=== PATIENT | female | born 1935 | race Caucasian/White ===

== ENCOUNTER → 2016-11-10 | Outpatient (CLI) | payer OTHER ==
[~2016-11-10] MED LIST: AMLO-110 PO; ASPI81TA82 PO; ATEN25TA PO; CALC-5 PO; FLAX1CAP11 PO; METF-382 PO; PANT40TA PO
[2016-11-10 17:31] LABS: ALT/SGPT 56 U/L (12-78); AST/SGOT 43 U/L (15-37); BLOOD UREA NITROGEN 17 mg/dl (7-18); BUN/CREATININE RATIO 18.1 (10-20); CALCIUM 9.4 mg/dl (8.5-10.1); CARBON DIOXIDE 29 mmol/L (21-32); CHLORIDE 103 mmol/L (98-107); CREATININE 0.96 mg/dl (0.60-1.20); GLUCOSE 82 mg/dl (70-99); POTASSIUM 3.9 mmol/L (3.5-5.1); SODIUM 141 mmol/L (136-145)
[2016-11-10 17:33] LABS: ALB/GLOB RATIO 0.9 (0.9-2); ALKALINE PHOSPHATASE 91 U/L (45-117)
[2016-11-11 05:58] LABS: ESTIMATED AVERAGE GLUCOSE 134 mg/dl; HA1C FLAG Normal (Normal)
== END | disposition home or self-care (01) ==
LOC: C.LABPVFM 13:13
PROVIDERS: ATTEND Nurse Practitioner
DX: I10 Essential (primary) hypertension (principal); E11.9 Type 2 diabetes mellitus without complications

== ENCOUNTER → 2016-11-18 | Outpatient (CLI) | payer OTHER ==
--- NOTE | 2016-11-18 14:20 | MAMMOGRAPHY REPORT ---
UNILATERAL RIGHT DIGITAL DIAGNOSTIC MAMMOGRAM TOMOSYNTHESIS WITH CAD AND TARGETED RIGHT ULTRASOUND: 11/18/2016 CLINICAL HISTORY: 81-year-old woman presents for follow-up of a right breast asymmetry. No family h istory of breast cancer. TECHNIQUE: Right breast tomosynthesis in addition to standard 2D mammography was performed. Current study was also evaluated with a Computer Aided Detection (CAD) system. COMPARISON: Comparison is made to exams dated: 04/16/2016 mammogram, 04/16/2016 ultrasound, 04/08/2016 mammogram, and 04/06/2013 mammogram - [facility]. BREAST COMPOSITION: The tissue of the right breast is heterogeneously dense, which may obscure smal l masses. FINDINGS: There are diffuse rodlike secretory calcifications and a few benign rim calcifications wit hin the right breast. There is persistence of a 10 x 11 x 9 mm focal asymmetry in the 6:00 anterior versus retroareolar right breast. Although the appearance is similar to the 04/08/2016 screening m ammogram and the 04/16/2016 diagnostic mammograms, further evaluation with ultrasound was again perf ormed. No new suspicious mass, architectural distortion or cluster of new suspicious microcalcifica tions is identified. Real-time high-resolution sonographic evaluation was performed in the periareolar and retroareolar r ight breast. There is focal duct ectasia in the 9:00 periareolar right breast. There are a few sha dowing areas, likely secondary to the diffuse secretory calcifications of the breast. There is also hypoechoic shadowing in the retroareolar breast. A prominent hypoechoic fat lobule versus question able solid mass in the 6:00 periareolar right breast measures 13.4 x 7.4 x 8.1 mm. Although this mo st likely represents a fat lobule, given the discrete hypoechoic nature while scanning in multiple p lanes, this is indeterminate. Therefore, further evaluation with a breast MRI is recommended to ass ess for any suspicious enhancing masses or simply normal breast tissue and duct ectasia in the subar eolar right breast. IMPRESSION: ACR BI-RADS CATEGORY 0: INCOMPLETE EVALUATION: NEED ADDITIONAL IMAGING EVALUATION, TAR GETED ULTRASOUND ACR BI-RADS CATEGORY 0: INCOMPLETE EVALUATION: NEED ADDITIONAL IMAGING EVALUATION There is persistent 10 mm focal asymmetry in the 6:00 anterior/retroareolar right breast, with out d efinitive sonographic correlate, although this area is difficult to assess on ultrasound given shado wing from the nipple and diffuse secretory calcification. Further evaluation with a contrast-enhanc ed breast MRI is recommended to exclude the possibility of a suspicious enhancing mass or non-mass e nhancement in this location. These results and recommendations were discussed with the patient at the time of the exam. Approximately 10% of breast cancers are not detected with mammography. A negative mammographic repor t should not delay biopsy if a clinically suggestive mass is present. Nika Mcleod M.D. ay/:11/18/2016 12:42:36 Barrel Polisher: Leeanne ESTEBAN(Jenn)(Smith), [facility] letter sent: Addl Imaging 0 BI-RADS Code: ACR BI-RADS Category 0: Incomplete Evaluation: Need Additional Imaging Evaluation Ul trasound BI-RADS: ACR BI-RADS Category 0: Incomplete Evaluation: Need Additional Imaging Evaluation
== END | disposition home or self-care (01) ==
LOC: C.MAMM 08:03
PROVIDERS: ATTEND Nurse Practitioner
DX: R92.8 Other abnormal and inconclusive findings on diagnostic imaging of breast (principal)

== ENCOUNTER → 2016-12-01 | Outpatient (CLI) | payer OTHER ==
[~2016-12-01] MED LIST changes: +GADAVIST IV PRN
--- NOTE | 2016-12-02 13:30 | MAMMOGRAPHY REPORT ---
BREAST MRI OF BOTH BREASTS : 12/01/2016 CLINICAL HISTORY: 81-year-old woman with a 12 mm right breast asymmetry and no definite sonographic correlate. She presents for additional evaluation to exclude a suspicious enhancing mass. COMPARISON: Comparison is made to exams dated: 11/18/2016 mammogram, 04/16/2016 mammogram, 04/16/2016 ultrasound, 11/18/2016 ultrasound, 04/08/2016 mammogram, and 04/06/2013 mammogram - [facility]. TECHNIQUE: Using a 1.5 Hilda magnet and dedicated breast coil, multisequence axial images were obtai jasmin through the breasts. After uneventful IV administration of 8 mL of Gadavist, dynamic multiphase contrast-enhanced axial images, and sagittal postcontrast were obtained. Temporal subtraction axia l images and 3-D MIP images are provided. Everything was then reviewed on a 3-D workstation, [employer]. FINDINGS: Right breast: There is no significant background parenchymal enhancement. In the anterior, subareol ar versus 6:00 periareolar right breast there is a lobulated, heterogeneously enhancing mass. It de monstrates areas of brain enhancement, has associated persistent kinetics, is hypointense on the T1 nonfat saturated images and T2 hyperintense with thin T2 hypointense linear septae within. It measu res 12.6 x 13.8 x 9.1 mm. This is thought to correlate with the mammographic asymmetry and also may correlate with the questionable fat lobule versus mass in the 6:00 periareolar right breast seen on recent ultrasound. Although this could represent a fibroadenoma it is indeterminate given the hete rogeneous and peripheral rim enhancement and definitive characterization with second look ultrasound and possible ultrasound-guided core biopsy is recommended. No other suspicious enhancing mass, non -mass enhancement or suspicious kinetics are seen within the right breast. There is no focal skin t hickening or nipple retraction. No right axillary lymphadenopathy. Left breast: There is mild background parenchymal enhancement. No suspicious enhancing mass, non-ma ss enhancement or suspicious kinetics are seen within the left breast. There is no focal skin thick ening or nipple retraction. No left axillary lymphadenopathy. Incidental note is made of degenerative changes in the visualized cervicothoracic spine, seen on the blast furnace blower sequence. There is a 5 mm anterior pericardiac lymph node. IMPRESSION: ACR BI-RADS CATEGORY 4B: INTERMEDIATE SUSPICION FOR MALIGNANCY 1. Second look ultrasound and possible ultrasound-guided core needle biopsy is recommended for an i ndeterminate lobulated, heterogeneously enhancing 13 mm mass in the anterior subareolar/6:00 periare olar right breast. This correlates with the mammographic asymmetry and also likely the questionable mass versus fat lobule seen on recent ultrasound. 2. No MRI evidence of malignancy within left breast The patient will be called to schedule an appointment. Nika Mcleod M.D. 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
== END | disposition home or self-care (01) ==
LOC: C.MRI 09:21
PROVIDERS: ATTEND Nurse Practitioner
DX: R92.8 Other abnormal and inconclusive findings on diagnostic imaging of breast (principal); N63 Unspecified lump in breast

== ENCOUNTER → 2016-12-17 | Outpatient (CLI) | payer OTHER ==
[~2016-12-17] MED LIST changes: -GADAVIST IV PRN
--- NOTE | 2016-12-17 11:17 | Discharge Instructions ---
Discharge Instructions Procedure Procedure Date: Dec 17, 2016. Reason for visit: Right Mass/2ND Look Us Poss Bx. Discharge Discharge Date: Dec 17, 2016. Discharge Diagnosis: status post breast biopsy Instructions Activity Recommendations: Additional Limitations (see below) Return to School/Work: no limitations Recommended Home Diet: No Limitations Provider Instructions: ACTIVITY RECOMMENDATIONS: * No lifting, pushing, pulling or exercising the affected side for three days. RETURN TO SCHOOL/WORK: * You may return to work/school after the procedure, but do not perform any strenuous activities for 24 to 48 hours. MEDICATIONS: * Tylenol (two 325 mg) every four to six hours if needed for mild pain (if not allergic to Tylenol). DIET: * Resume previous diet. SPECIAL CARE INSTRUCTIONS: * Keep biopsy site dry for 24 hours. May shower after 24 hours, but do not soak (bathe) incision. * May remove Tegaderm (plastic patch) tomorrow AFTER showering. * Leave the steri-strips on for one week. Allow the steri-strips to fall off by themselves. If not off after one week, you may remove them. You may place a Bandaid crosswise over the strips, if desired. * Apply ice 10 minutes on and 10 minutes off as needed. * Wear a bra at bedtime to sleep more comfortably for 2-3 days. * Your referring physician should have the results after approximately 5 to 7 business days. * Call for unusual bleeding, fever, drainage, etc or if you have any questions call during normal business hours or after hours call Dr Benavidez, . FOLLOW UP VISIT: Follow-up with Referring Physician as scheduled. Allergies Coded Allergies: BEE STING (Unverified Allergy, Intermediate, HIVES, 05/07/16) Sulfa Drugs (Verified Allergy, Unknown, ., 05/07/16) Rocky Medeiros Recommendations: Call your doctor if: * Temperature above 101 degrees * Pain not relieved by pain medicine ordered * There is increased drainage or redness from any incision * You have any unanswered questions or concerns. Your Doctors Instructions noted above were prepared by provider Shira Benavidez. Patient Signature Section: Patient Instructions Signature Page Amparo Nguyen Patient (or Guardian) Signature/Date: I have read and understand the instructions given to me by my caregivers. Caregiver/RN/Doctor Signature/Date: The above-named patient and/or guardian has received patient instructions on this date. + Original Patient Signature Page (only) stays with chart. Please make copy for patient.
--- NOTE | 2016-12-17 12:26 | MAMMOGRAPHY REPORT ---
UNILATERAL RIGHT DIGITAL DIAGNOSTIC MAMMOGRAM: 12/17/2016 CLINICAL HISTORY: Status post ultrasound guided biopsy of the right 6:00 breast mass. TECHNIQUE: Postprocedural right CC and ML views were obtained. COMPARISON: Comparison is made to exams dated: 11/18/2016 mammogram, 04/16/2016 mammogram, 04/08/2016 m ammogram, 04/06/2013 mammogram, 04/05/2012 mammogram, and 02/25/2011 mammogram - [facility]. BREAST COMPOSITION: The tissue of the right breast is heterogeneously dense, which may obscure smal l masses. FINDINGS: A new biopsy marker clip is seen at the site of the biopsied right 6:00 breast mass. No significant postbiopsy hematoma is seen. IMPRESSION: POST PROCEDURE IMAGING FOR MARKER PLACEMENT New biopsy marker clip status post ultrasound guided biopsy of the right 6:00 breast mass. Patholog y results are pending. Approximately 10% of breast cancers are not detected with mammography. A negative mammographic repor t should not delay biopsy if a clinically suggestive mass is present. Shira Benavidez M.D. ah/:12/17/2016 11:25:37 Pharmaceutical Plant Operator: Nery Beach RT(R)(M), [facility] BI-RADS Code: Post Procedure Imaging For Marker Placement
--- NOTE | 2016-12-17 12:26 | MAMMOGRAPHY REPORT ---
ULTRASOUND OF RIGHT BREAST: 12/17/2016 CLINICAL HISTORY: Second look ultrasound for enhancing mass seen on breast MRI. COMPARISON: Comparison is made to exams dated: 12/01/2016 breast MRI, 11/18/2016 ultrasound, 7 mammogram, 04/16/2016 mammogram, 04/08/2016 mammogram, and 04/06/2013 mammogram - [facility]. TECHNIQUE: Real-time targeted ultrasound of the right breast was performed. FINDINGS: Real-time, high resolution targeted ultrasound was performed of the right 6:00 breast in the region of the enhancing mass seen on breast MRI. In the right 6:00 periareolar breast, there is a slightly hypoechoic lobulated 10 x 7 x 12 mm mass. This is felt to correspond with the enhancing mass seen on breast MRI and also corresponds with the mass seen on the higher breast ultrasound dated . The mass is indeterminate and ultrasound-guided core needle biopsy is recommended for further ev aluation. IMPRESSION: ACR BI-RADS CATEGORY 4A: LOW SUSPICION FOR MALIGNANCY - FOLLOW-UP RECOMMENDED Slightly hypoechoic 12 mm mass in the right 6:00 breast, which is felt to correspond with the MRI fi nding. Recommend ultrasound-guided core needle biopsy for further evaluation. A phone call was made to the physician's office to confirm faxed results were received. The patient was verbally notified of the results. Biopsy was performed immediately after the ultrasound exam. Shira Benavidez M.D. ah/:12/17/2016 11:17:09 Quality Eng: Shira Benavidez MD, [facility] BI-RADS Code: ACR BI-RADS Category 4A: Low Suspicion For Malignancy
--- NOTE | 2016-12-17 12:26 | MAMMOGRAPHY REPORT ---
ULTRASOUND GUIDED BIOPSY RIGHT BREAST: 12/17/2016 CLINICAL HISTORY: Right 6:00 breast mass. PATIENT CONSENT: The procedure, risks and benefits were discussed with the patient and informed writ ten consent was obtained. A timeout was performed immediately prior to the procedure. PROCEDURE DESCRIPTION: With ultrasound guidance, aseptic technique, and lidocaine as the local anest hetic (1% lidocaine to anesthetize the skin and 1% lidocaine with epinephrine to anesthetize the jamal per tissues), the mass of concern in the right 6:00 breast was sampled 3 times with a 14-gauge Achie ve biopsy needle. Direct pressure was applied to the site immediately post procedure and hemostasis was achieved. Immediately thereafter, with ultrasound guidance, aseptic technique, and lidocaine a s the local anesthetic, a metallic localizer clip was placed centrally in the mass. Direct pressure was applied to the site immediately post procedure and hemostasis was achieved. Postprocedure unil ateral mammograms were performed to confirm placement of the clip in the expected location of the br east mass. The patient tolerated the procedure without complication. She was given wound care inst ructions. The specimens were sent to pathology for analysis. COMPARISON: Comparison is made to exams dated: 12/01/2016 breast MRI, 11/18/2016 mammogram, 12/17/2016 ultrasound, 04/16/2016 mammogram, 04/05/2012 mammogram, and 04/06/2013 mammogram - [facility] [address]. IMPRESSION: ULTRASOUND GUIDED BIOPSY Ultrasound guided core needle biopsy of the right 6:00 breast mass, with clip placement. The patien t will receive pathology results from her referring provider. Shira Benavidez M.D. ah/:12/17/2016 11:19:19 Tire Mold Engraver: Nery Beach RT(R)(M), [facility] [address]
== END | disposition home or self-care (01) ==
LOC: C.MAMM 10:03
PROVIDERS: ATTEND Nurse Practitioner
DX: N63 Unspecified lump in breast (principal); C50.911 Malignant neoplasm of unspecified site of right female breast

== ENCOUNTER → 2017-04-16 | Outpatient (CLI) | payer OTHER ==
--- NOTE | 2017-04-16 16:13 | MAMMOGRAPHY REPORT ---
BILATERAL DIGITAL DIAGNOSTIC MAMMOGRAM TOMOSYNTHESIS WITH CAD: 04/16/2017 CLINICAL HISTORY: History of right breast cancer status post lumpectomy December 2016. The patient did not have radiation therapy. The patient denies any current complaints. TECHNIQUE: Breast tomosynthesis in addition to standard 2D mammography was performed. Current study was also evaluated with a Computer Aided Detection (CAD) system. Bilateral CC and MLO 2-D and tomosy nthesis images and spot magnification right cc and ML views of the lumpectomy bed were obtained. COMPARISON: Comparison is made to exams dated: 12/17/2016 ultrasound biopsy, 12/17/2016 mammogram, 11/04 breast MRI, 12/17/2016 ultrasound, 11/18/2016 ultrasound, and 11/18/2016 mammogram - [facility]. BREAST COMPOSITION: The tissue of both breasts is heterogeneously dense, which may obscure small mas ses. FINDINGS: There are new post surgical changes in the right breast from prior lumpectomy, including n ew density and architectural distortion at the lumpectomy bed. Linear scar markers denote scars on t he right anterior and left lateral breast. There is minimal diffuse right breast skin thickening. T he remainder of both breasts are stable compared to prior exams, without suspicious masses, calcifica tions, or areas of architectural distortion noted. Scattered bilateral benign-appearing calcificatio ns, predominantly rodlike secretory calcifications, are again noted. IMPRESSION: ACR-BI-RADS CATEGORY 3: PROBABLY BENIGN Expected postsurgical changes in the right breast status post lumpectomy, without mammographic eviden ce of malignancy in either breast. Recommend follow-up diagnostic tomosynthesis mammograms of the ri ght breast in 6 months to reevaluate right breast postsurgical changes. The patient has been verbally notified of the results. Approximately 10% of breast cancers are not detected with mammography. A negative mammographic report should not delay biopsy if a clinically suggestive mass is present. Shira Benavidez M.D. /:04/16/2017 11:52:58 [employer] Miss[employer] Spacelift: Arianna Veliz, [facility] letter sent: Personal History 3 BI-RADS Code: ACR-BI-RADS Category 3: Probably Benign
== END | disposition home or self-care (01) ==
LOC: C.MAMM 10:39
PROVIDERS: ATTEND Surgery
DX: C50.111 Malignant neoplasm of central portion of right female breast (principal)

== ENCOUNTER → 2017-05-14 | Outpatient (CLI) | payer OTHER ==
[2017-05-14 13:11] LABS: BLOOD UREA NITROGEN 19 mg/dl (7-18); BUN/CREATININE RATIO 16.8 (10-20); CALCIUM 9.8 mg/dl (8.5-10.1); CARBON DIOXIDE 28 mmol/L (21-32); CHLORIDE 104 mmol/L (98-107); GLUCOSE 103 mg/dl (70-99); POTASSIUM 4.4 mmol/L (3.5-5.1); SODIUM 138 mmol/L (136-145)
[2017-05-14 13:27] LABS: ESTIMATED AVERAGE GLUCOSE 131 mg/dl; HA1C FLAG Normal (Normal)
== END | disposition home or self-care (01) ==
LOC: C.LABPVFM 09:12
PROVIDERS: ATTEND Nurse Practitioner
DX: I10 Essential (primary) hypertension (principal); E11.9 Type 2 diabetes mellitus without complications

== ENCOUNTER → 2017-10-16 | Outpatient (CLI) | payer OTHER ==
--- NOTE | 2017-10-16 12:57 | MAMMOGRAPHY REPORT ---
UNILATERAL RIGHT DIGITAL DIAGNOSTIC MAMMOGRAM TOMOSYNTHESIS WITH CAD: 10/16/2017 CLINICAL HISTORY: History of right breast cancer status post lumpectomy December 2016. The patient did not have radiation therapy. She denies any current complaints. TECHNIQUE: Breast tomosynthesis in addition to standard 2D mammography was performed. Current study was also evaluated with a Computer Aided Detection (CAD) system. Right CC and MLO 2-D and tomosynthe sis images and spot magnification right cc and ML views were obtained. COMPARISON: Comparison is made to exams dated: 04/16/2017 mammogram, 11/18/2016 ultrasound, 11/18/2016 mammogram, 04/16/2016 mammogram, 04/16/2016 ultrasound, and 04/08/2016 mammogram - [facility]. BREAST COMPOSITION: There are scattered areas of fibroglandular density in the right breast. FINDINGS: There are stable post surgical changes in the right lateral breast from prior lumpectomy, i ncluding stable density and architectural distortion at the lumpectomy bed. Minimal diffuse right br east skin thickening is stable to decreased. Scattered benign-appearing right breast calcifications are not significantly changed. There are no suspicious masses, calcifications, or areas of software database architect ural distortion noted in the right breast. IMPRESSION: ACR-BI-RADS CATEGORY 3: PROBABLY BENIGN Stable post surgical changes in the right breast from prior lumpectomy, without mammographic evidence of malignancy in the right breast. Recommend bilateral diagnostic tomosynthesis mammograms in 6 mon ths, to reevaluate the right breast postsurgical changes and for routine mammography of the left sarai st. The patient has been verbally notified of the results. Approximately 10% of breast cancers are not detected with mammography. A negative mammographic report should not delay biopsy if a clinically suggestive mass is present. Shira Benavidez M.D. /:10/16/2017 11:11:58 Earth Science Faculty Member: Shilpa ESTEBAN(Jenn)(M), [facility] letter sent: Personal History 3 BI-RADS Code: ACR-BI-RADS Category 3: Probably Benign
== END | disposition home or self-care (01) ==
LOC: C.MAMM 10:38
PROVIDERS: ATTEND Surgery
DX: Z85.3 Personal history of malignant neoplasm of breast (principal)

== ENCOUNTER → 2017-11-09 | Outpatient (CLI) | payer OTHER ==
[2017-11-09 13:02] LABS: HEMOGLOBIN A1C 6.1 % (4.5-5.6)
[2017-11-09 13:08] LABS: BLOOD UREA NITROGEN 19 mg/dl (7-18); CALCIUM 9.4 mg/dl (8.5-10.1); CARBON DIOXIDE 28 mmol/L (21-32); GLUCOSE 113 mg/dl (70-99); POTASSIUM 3.8 mmol/L (3.5-5.1); SODIUM 138 mmol/L (136-145)
== END | disposition home or self-care (01) ==
LOC: C.LABPVFM 09:11
PROVIDERS: ATTEND Nurse Practitioner
DX: I10 Essential (primary) hypertension (principal); E11.9 Type 2 diabetes mellitus without complications

== ENCOUNTER 2020-07-08 11:53 | Inpatient (IN) ==
[~2020-07-08 11:53] MED LIST changes: -AMLO-110 PO; -ASPI81TA82 PO; -ATEN25TA PO; -CALC-5 PO; +FAMOTIDINE 20 MG in SYRINGE 3 ML IV ONE; -FLAX1CAP11 PO; -METF-382 PO; -PANT40TA PO
[2020-07-08] MEDS ORDERED: ONDANSETRON INJ 2 MG/ML 2 ML VIAL IV STA (12:50)
[2020-07-08] MEDS ORDERED: KETOROLAC TROMETHAMINE 15 MG/ML VIAL IV STA (12:50)
[2020-07-08] MEDS ORDERED: MoRPHine SULFATE 4 MG/ML 1 ML CARP\\VIAL IV PRN (12:50)
[2020-07-08] MEDS ORDERED: SODIUM CHLORIDE 0.9% 500 ML IV SCH (13:00)
[2020-07-08 13:04] LABS: Basophils # (auto) 0.02 K/uL (0-0.2); Basophils % (auto) 0.1 %; Eosinophils # (auto) 0.03 K/uL (0-0.5); Eosinophils % (auto) 0.2 %; Hematocrit (blood only) 42.1 % (37-47); Hemoglobin 14.4 g/dL (12.0-16.0); Immature Granulocytes # (auto) 0.02 K/uL (0.00-0.02); Immature Granulocytes % (auto) 0.1 %; Lymphocytes % (auto) 3.7 %; Mean Corpuscular Hemoglobin 31.1 pg (25-34); Mean Corpuscular Hgb Conc 34.2 g/dL (32-36); Mean Corpuscular Volume 90.9 fL (80-100); Mean Platelet Volume 10.9 fL (7.4-10.4); Monocytes # (auto) 0.47 K/uL (0.11-0.59); Monocytes % (auto) 2.9 %; Platelet Count 307 K/uL (130-400); RDW Coefficient of Variation 13.3 % (11.5-14.5); RDW Standard Deviation 43.9 fL (36.4-46.3); Red Blood Count 4.63 M/uL (4.2-5.4); White Blood Count 16.04 K/uL (4.8-10.8)
[2020-07-08 13:11] LABS: Alanine Aminotransferase 106 U/L (12-78); Albumin Level 3.9 gm/dl (3.4-5.0); Aspartate Aminotransferase 184 U/L (15-37); BUN Creatinine Ratio 15.8 (10-20); Blood Urea Nitrogen 20 mg/dl (7-18); Calcium 9.8 mg/dl (8.5-10.1); Carbon Dioxide 26 mmol/L (21-32); Chloride 102 mmol/L (98-107); Creatinine Clr Calc Pharmacy 34.6 ml/min; Est GFR (African American) 46.1; Est GFR (Non-African American) 39.7; Glucose 226 mg/dl (70-99); Potassium 3.6 mmol/L (3.5-5.1); Sodium 138 mmol/L (136-145)
[2020-07-08] MEDS ORDERED: IOVERSOL 100ml IV ONE (13:14)
[2020-07-08 13:15] LABS: Albumin Globulin Ratio 0.9 (0.9-2); Alkaline Phosphatase 134 U/L (45-117); Bilirubin,Total 1.5 mg/dl (0.2-1); Globulin 4.5 gm/dl (2.5-4.0); Lipase 11245 U/L (73-393); Total Protein 8.4 gm/dl (6.4-8.2); Troponin I < 0.015 ng/ml (0-0.045)
--- NOTE | 2020-07-08 13:17 | Emergency Department Note ---
Impression & Plan Epigastric abdominal pain, Acute pancreatitis ED Provider Note NAME: NATALIA Mtz WINTER AGE: 85 SEX: F : 1935 ARRIVES VIA: Walk-In INFORMANT: [Patient] ED PROVIDER(S): [Sonido Almodovar MD] CHIEF COMPLAINT: Abdominal pain HISTORY OF PRESENT ILLNESS: The patient is an 85-year-old female presents the ED with about 7 hours of severe 10/10 epigastric pain radiating to the back. She has tried Maalox without relief. No diarrhea, no nausea or vomiting. No fever, chills, cough, chest pain or shortness of breath. The patient states that nothing she does makes her symptoms better or worse. She states she has had her gallbladder removed. REVIEW OF SYSTEMS: See HPI for pertinent positives and negatives. A total of ten systems were revie wed and were otherwise negative. PMHx/PSHx: See Below SOCIAL HISTORY: See Below. PHYSICAL EXAM: GENERAL: Patient is in moderate distress from pain. HEENT: No acute trauma, normocephalic atraumatic, mucous membranes moist, no nasal congestion, no scleral icterus. NECK: No stridor, no adenopathy, no meningismus, trachea is midline. LUNGS: Clear to auscultation bilaterally, no wheeze, no rhonchi, breath sounds e qual. HEART: Without murmurs gallops or rubs, regular rate and rhythm. ABDOMEN: Soft, significant tender in the epigastrium, bowel sounds positive, no hernias, no peritonitis. EXTREMITIES: No cyanosis or edema, full range of motion of all the joints without pain or difficulty, no signs for acute trauma. NEUROLOGIC: Oriented x 3, no acute motor or sensory deficits, no focal weakness. SKIN: No rash, no jaundice, no diaphoresis. DIFFERENTIAL DIAGNOSIS: Appendicitis, ovarian cyst, ovarian torsion,infections, diverticulitis, UTI, obstruction, mesenteric ischemia, aortic pathology, inflammatory bowel disease, renal colic, PUD, pancreatitis, biliary pathology, hernia, volvulus, constipation, as well as other pathologies. EMERGENCY DEPARTMENT COURSE/PROCEDURES: ECG: Indication was epigastric pain. The ECG shows a normal sinus rhythm with a rate of 89. There is some diffuse nonspecific ST change. There are no PVCs or ST elevation. The QTc is 462. Continuous Cardiac Monitoring: An order was placed for continuous cardiac monitoring. The monitor shows a rate of 88 with normal sinus rhythm. MEDICAL DECISION MAKING: There is a moderate leukocytosis at 16,000, this is consistent with infection or may be just her pain. There is a normal hemoglobin and platelet count. No significant electrolyte abnormality or kidney failure. There were some elevated liver enzymes. The patient did have evidence for pancreatitis by our testing with a lipase value over 11,000. ECG showed a sinus rhythm, no acute ischemia. Cardiac enzyme testing x1 was not consistent with acute cardiac injury. Chest from did not show free air, pneumonia or mediastinal widening. Abdominal and pelvis CT did not show any bowel obstruction or free air, no acute surgical process by CT scan. Some dilated biliary ducts were seen. On exam, the patient did seem uncomfortable in the epigastric area. She was not febrile or toxic. The patient received IV saline for hydration. She received IV Zofran and IV mo rphine. She was given IV Toradol. She is feeling improved. She seems now to be resting. The patient is in need of a hospital stay. She has pancreatitis. This diagnosis has of course caused her pain. She has had this diagnosis once before. I did speak to the patient at length, I spoke with case management. The on-call hospitalist was consulted. Past Med/Surg History Medical History Acid reflux Acid reflux disease Breast cancer, right breast Chronic reflux esophagitis Diabetes Hyperlipidemia Hypertension Sensorineural hearing loss (SNHL) Surgical History H/O right breast biopsy 20 years ago - benign H/O total hysterectomy with bilateral salpingo-oophorectomy (BSO) History of appendectomy History of cholecystectomy Hx of cataract surgery Only right eye Status post excisional biopsy Bilateral excisional biopsies - benign Status post right breast lumpectomy 2017 and then 2019 for a recurrence SLN biopsy as well Family History Mother , 68yo; Stroke Hypertension Father , at 52yo; Heart disease Smoker Sister Hypertension COPD (chronic obstructive pulmonary disease) CHF (congestive heart failure) Obesity Sister Diabetes 1.5, managed as type 1 Hypertension Paget's disease Son Myocardial infarction History of heart artery stent Tongue cancer Lyme disease Bipolar affect, depressed Son Brain cancer Daughter Leukemia Cervical cancer Denies family history of Ovarian cancer Prostate cancer Breast cancer Colorectal cancer Social History Smoking Status: Never smoker Second Hand Exposure: No; Do You Dip or Chew Tobacco: No; Tobacco Cessation Education Requested by Patient: No Hx Alcohol Use: No Hx Substance Use: No Preferred Language: Romansh Communication Ability: Effective Visual Impairment: No Limitations Hearing Ability: Normal Aircraft Engineer Required: No Beliefs That Will Affect Care: None marital status: Current Living Situation: Spouse current occupational status: 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 Verified 07/08/20 13:02 Antibiotics) lisinopril Allergy COUGH Verified 07/08/20 13:02 Home Meds Home Medications Medication Instructions Recorded Confirmed ergocalciferol (vitamin D2) 10 mcg PO DAILY 07/08/20 07/08/20 [Vitamin D2] metformin 500 mg PO DAILY 07/08/20 07/08/20 Previous Rx's Medication Instructions Recorded blood sugar diagnostic See Rx Instructions .ROUTE 08/11/19 .COMPLEX #100 strip atenolol 25 mg tablet 25 mg PO DAILY #30 tab 05/08/20 triamcinolone acetonide 0.1 % 1 appln TOP BID PRN #15 gm 05/08/20 topical cream amlodipine 5 mg tablet 5 mg PO DAILY #90 tab 06/21/20 Results & Data (ED) Vital Signs Vital Signs - 24 hr 07/08/20 11:58 07/08/20 12:18 07/08/20 12:27 Temperature 36.4 C L Temperature Source Oral Pulse Rate 75 74 71 Respiratory Rate 19 27 H 26 H Blood Pressure 195/72 H 188/72 H Blood Pressure Mean 113 81 Pulse Oximetry 100 Oxygen Delivery Method Room Air Sepsis Recent Fever Within 48 Hours No Sepsis New/Unexplained Change in Mental Status No Sepsis Action Taken by Nursing No Action Required 07/08/20 12:30 07/08/20 12:31 07/08/20 12:37 Temperature Temperature Source Oral Pulse Rate 67 68 Respiratory Rate 22 18 Blood Pressure 175/73 H Blood Pressure Mean 109 Pulse Oximetry Oxygen Delivery Method Sepsis Recent Fever Within 48 Hours Sepsis New/Unexplained Change in Mental Status Sepsis Action Taken by Nursing 07/08/20 13:00 07/08/20 13:01 07/08/20 13:30 Temperature Temperature Source Pulse Rate 72 71 81 Respiratory Rate 13 19 Blood Pressure 153/72 H 173/70 H Blood Pressure Mean 103 104 Pulse Oximetry Oxygen Delivery Method Sepsis Recent Fever Within 48 Hours Sepsis New/Unexplained Change in Mental Status Sepsis Action Taken by Nursing 07/08/20 13:31 07/08/20 14:00 07/08/20 14:01 Temperature Temperature Source Pulse Rate 82 92 H 90 Respiratory Rate 24 26 H Blood Pressure 180/71 H Blood Pressure Mean 125 Pulse Oximetry Oxygen Delivery Method Sepsis Recent Fever Within 48 Hours Sepsis New/Unexplained Change in Mental Status Sepsis Action Taken by Nursing 07/08/20 14:30 07/08/20 14:31 07/08/20 15:00 Temperature Temperature Source Pulse Rate 94 H 94 H 90 Respiratory Rate 26 H 26 H 23 Blood Pressure 178/72 H 184/70 H Blood Pressure Mean 116 127 Pulse Oximetry Oxygen Delivery Method Sepsis Recent Fever Within 48 Hours Sepsis New/Unexplained Change in Mental Status Sepsis Action Taken by Nursing 07/08/20 15:01 Temperature Temperature Source Pulse Rate 88 Respiratory Rate 25 H Blood Pressure Blood Pressure Mean Pulse Oximetry Oxygen Delivery Method Sepsis Recent Fever Within 48 Hours Sepsis New/Unexplained Change in Mental Status Sepsis Action Taken by Long-Term Medications Current Medication List: was personally reviewed by me Laboratory Data Attestation: I reviewed the patient's lab results. Result diagrams: 07/08/20 12:25 07/08/20 12:25 Lab Results 07/08/20 07/08/20 07/08/20 Range/Units 12:15 12:25 12:25 WBC 16.04 H (4.8-10.8) K/uL RBC 4.63 (4.2-5.4) M/uL Hgb 14.4 (12.0-16.0) g/dL Hct 42.1 (37-47) % MCV 90.9 (80-100) fL MCH 31.1 (25-34) pg MCHC 34.2 (32-36) g/dL RDW Std Deviation 43.9 (36.4-46.3) fL RDW Coeff of [place] 13.3 (11.5-14.5) % Plt Count 307 (130-400) K/uL MPV 10.9 H (7.4-10.4) fL Immature Gran % (Auto) 0.1 % Neut % (Auto) 93.0 % Lymph % (Auto) 3.7 % [place] % (Auto) 2.9 % Eos % (Auto) 0.2 % Baso % (Auto) 0.1 % Neut # (Auto) 14.90 H (1.4-6.5) K/uL Lymph # (Auto) 0.60 L (1.2-3.4) K/uL [place] # (Auto) 0.47 (0.11-0.59) K/uL Eos # (Auto) 0.03 (0-0.5) K/uL Baso # (Auto) 0.02 (0-0.2) K/uL Immature Gran # (Auto) 0.02 (0.00-0.02) K/uL Sodium 138 (136-145) mmol/L Potassium 3.6 (3.5-5.1) mmol/L Chloride 102 (98-107) mmol/L Carbon Dioxide 26 (21-32) mmol/L Anion Gap 9.0 (3-11) BUN 20 H (7-18) mg/dl Creatinine 1.25 H (0.6-1.2) mg/dl Est Cr Clr Drug Dosing 34.6 ml/min Est GFR ( Amer) 46.1 Est GFR (Non-Af Amer) 39.7 BUN/Creatinine Ratio 15.8 (10-20) Glucose 226 H (70-99) mg/dl Calcium 9.8 (8.5-10.1) mg/dl Total Bilirubin 1.5 H (0.2-1) mg/dl AST 184 H (15-37) U/L ALT 106 H (12-78) U/L Alkaline Phosphatase 134 H (45-117) U/L Troponin I < 0.015 (0-0.045) ng/ml Total Protein 8.4 H (6.4-8.2) gm/dl Albumin 3.9 (3.4-5.0) gm/dl Globulin 4.5 H (2.5-4.0) gm/dl Albumin/Globulin Ratio 0.9 (0.9-2) Lipase 12171 H (73-393) U/L Urine Color Dark Yellow Urine Appearance Clear (Clear) Urine pH 8.0 H (4.5-7.5) Ur Specific [place] 1.020 (1.000-1.030) Urine Protein Negative (Negative) Urine Glucose (UA) Trace H (Negative) Urine Ketones Negative (Negative) Urine Blood Negative (Negative) Urine Nitrite Negative (Negative) Urine Bilirubin Negative (Negative) Urine Urobilinogen Positive H (Negative) Ur Leukocyte Esterase Negative (Negative) Urine WBC (Auto) 0 (0-5) /hpf Urine RBC (Auto) 0-4 (0-4) /hpf U Hyaline Cast (Auto) 0 (0-5) /lpf U Epithel Cells (Auto) 10-20 H (0-5) /lpf Urine Bacteria (Auto) Negative (Negative) Administered Medications Atenolol (Atenolol 25 Mg Tablet) 25 mg PO DAILY [facility] Stop: 08/07/20 17:39 Last Admin: 07/08/20 18:31 Dose: 25 mg Documented by: [id number] Lactated Ringer's (Lr) 1,000 mls @ 175 mls/hr IV .Q5H43M [facility] Stop: 08/07/20 17:59 Last Admin: 07/08/20 18:41 Dose: 175 mls/hr Documented by: [id number] Insulin Aspart (Insulin Aspart 100 Units/Ml 3 Ml Pen) 0 units SC ACHS [facility] Stop: 08/07/20 17:39 Last Admin: 07/08/20 20:24 Dose: 1 units Documented by: [id number] Cosigned by: [id number] Admin: 07/08/20 18:31 Dose: Not Given Documented by: [id number] Discontinued Medications Famotidine (Famotidine 20mg/5ml Iv Push) 20 mg IV ONE STA Stop: 07/08/20 15:53 Last Admin: 07/08/20 16:11 Dose: 20 mg Documented by: [id number] Sodium Chloride (Nss) 500 mls @ 999 mls/hr IV .Q31M [facility] Stop: 07/08/20 13:30 Last Infusion: 07/08/20 14:33 Dose: 0 mls/hr Documented by: [id number] Admin: 07/08/20 13:19 Dose: 999 mls/hr Documented by: [id number] Sodium Chloride (Nss 1000ml) 1,000 mls @ 999 mls/hr IV .Q1H1M ONE Stop: 07/08/20 16:28 Last Admin: 07/08/20 20:22 Dose: Not Given Documented by: [id number] Ioversol (Ioversol 100ml) 94 ml IV ONCE ONE Stop: 07/08/20 13:15 Last Admin: 07/08/20 13:15 Dose: 94 ml Documented by: [id number] Ketorolac Tromethamine (Ketorolac Tromethamine 15 Mg/Ml Vial) 15 mg IV NOW STA Stop: 07/08/20 12:51 Last Admin: 07/08/20 13:19 Dose: 15 mg Documented by: [id number] Morphine Sulfate (Morphine Sulfate 4 Mg/Ml 1 Ml Carp\Vial) 4 mg IV Q15M PRN PRN Reason: Pain Stop: 07/22/20 12:49 Last Admin: 07/08/20 13:19 Dose: 4 mg Documented by: [id number] Ondansetron HCl (Ondansetron Inj 2 Mg/Ml 2 Ml Vial) 4 mg IV NOW STA Stop: 07/08/20 12:51 Last Admin: 07/08/20 13:19 Dose: 4 mg Documented by: [id number] Imaging Data Radiologist's Impression: XR chest 1V portable HISTORY: 85 years-old Female epig pain acute epigastric abdominal pain with nausea and vomiting COMPARISON: Chest radiograph 05/07/2016 TECHNIQUE: Portable AP view of the chest FINDINGS: Cardiac silhouette is enlarged. Calcifications of the mitral annulus. No pneumothorax, pleural effusion or overt pulmonary edema. Mild linear subsegmental left basilar atelectasis. Degenerative changes of the shoulders and spine. IMPRESSION: No acute process. ABDOMEN AND PELVIS CT WITH IV CONTRAST CT DOSE: 516.89 mGy.cm HISTORY: Acute generalized abdominal pain poss obstruc or pancreatitis TECHNIQUE: Multiaxial CT images of the abdomen and pelvis were performed following the IV administration of 94 cc of Optiray 320, A dose lowering technique was utilized adhering to the principles of ALARA. COMPARISON STUDY: CT radiation therapy study 01/26/2019, right breast mammogram 11/10/2018. FINDINGS: Mild bibasilar atelectasis. No pneumatosis or pneumoperitoneum. Cardiomegaly. Extensive coronary artery calcifications. Spleen and right adrenal gland are unremarkable. Nodular thickening of the left adrenal gland. Moderate generalized pancreatic atrophy. No CT evidence of acute pancreatitis. No hepatic mass lesion. There is moderate intrahepatic and extrahepatic biliary ductal dilation without obstructing stone or lesion identified. The common bile duct measures up to 1.6 cm transversely. The gallbladder appears surgically absent. 3.1 cm duodenal diverticulum. Unremarkable appearance of the kidneys. Cyst of the superior pole right kidney, 1.8 cm. Pelvic floor relaxation with small cystocele. Hysterectomy. Calcified plaque of the abdominal aorta. No adenopathy. There is mild wall thickening of the distal gastric body and antrum. Scattered small bowel air. No bowel obstruction. Colonic diverticulosis without acute diverticulitis. Moderate fecal retention. The appendix is reportedly surgically absent. No ascites or mesenteric inflammation. The soft tissues are unremarkable exception of dermal thickening of the right breast. 2.1 x 1.7 cm hypodense focus of the right breast extends towards the nipple, possibly postsurgical. Degenerative changes of the spine, pelvis and hips. Grade 1 anterolisthesis L4 on L5 with multilevel degenerative changes. IMPRESSION: 1. No bowel obstruction or bowel wall thickening. 2. Mild wall thickening of the distal stomach may be secondary to partial distention versus a nonspecific gastritis. 3. Moderate intrahepatic and extrahepatic biliary ductal dilation may be on a postsurgical basis from prior cholecystectomy. Correlate with laboratory analysis. 4. Colonic diverticulosis. 5. Multiple stool-filled loops of small bowel suggest decreased small bowel transit. Blood Pressure Blood Pressure Findings: Elevated blood pressure Blood Pressure Disposition: further management by hospitalist Discharge Plan Visit Data Chief Complaint: Abdominal Pain Stated Complaint: UPPER ABD PAIN ED Provider: Sonido Almodovar Discharge Problem: Epigastric abdominal pain, Acute pancreatitis Patient Disposition: Admitted As Inpatient Condition: Fair Discharge Instructions Interventions: ED Discharge Assessment Last Done: 07/08/20 16:04 Discharge Problem: Acute pancreatitis Qualifiers: Pancreatitis type: idiopathic Acute pancreatitis complication: no infection or necrosis Qualified Code(s): K85.00 - Idiopathic acute pancreatitis without necrosis or infection
[2020-07-08 13:26] LABS: Appearance Urine Clear (Clear); Bacteria Urine Automated Negative (Negative); Bilirubin Urine Negative (Negative); Blood Urine Negative (Negative); Cast Urine Automated 0 /lpf (0-5); Color Urine Dark Yellow; Glucose Urine UA Trace (Negative); Ketones Urine Negative (Negative); Leukocyte Esterase Urine Negative (Negative); Nitrite Urine Negative (Negative); RBC Urine Automated 0-4 /hpf (0-4); Urobilinogen Urine Positive (Negative); WBC Urine Automated 0 /hpf (0-5)
[2020-07-08 13:28] LABS: Protein Urine Negative (Negative); Sulfosalicylic Acid Urine Negative (Negative)
--- NOTE | 2020-07-08 13:40 | XRay Report ---
XR chest 1V portable HISTORY: 85 years-old Female epig pain acute epigastric abdominal pain with nausea and vomiting COMPARISON: Chest radiograph 05/07/2016 TECHNIQUE: Portable AP view of the chest FINDINGS: Cardiac silhouette is enlarged. Calcifications of the mitral annulus. No pneumothorax, pleural effusi on or overt pulmonary edema. Mild linear subsegmental left basilar atelectasis. Degenerative changes of the shoulders and spine. IMPRESSION: No acute process. ACT 112: Negative or not required by law. The above report was generated using voice recognition software. It may contain grammatical, syntax o r spelling errors. Electronically signed by: Tomas Escalante M.D. 07/08/2020 1:39 PM
--- NOTE | 2020-07-08 14:45 | CT Scan Report ---
ABDOMEN AND PELVIS CT WITH IV CONTRAST CT DOSE: 516.89 mGy.cm HISTORY: Acute generalized abdominal pain poss obstruc or pancreatitis TECHNIQUE: Multiaxial CT images of the abdomen and pelvis were performed following the IV administrat ion of 94 cc of Optiray 320, A dose lowering technique was utilized adhering to the principles of [place] RENATO. COMPARISON STUDY: CT radiation therapy study 01/26/2019, right breast mammogram 11/10/2018. FINDINGS: Mild bibasilar atelectasis. No pneumatosis or pneumoperitoneum. Cardiomegaly. Extensive coronary paul ry calcifications. Spleen and right adrenal gland are unremarkable. Nodular thickening of the left adrenal gland. Modera te generalized pancreatic atrophy. No CT evidence of acute pancreatitis. No hepatic mass lesion. Ther e is moderate intrahepatic and extrahepatic biliary ductal dilation without obstructing stone or lesi on identified. The common bile duct measures up to 1.6 cm transversely. The gallbladder appears surgi geni absent. 3.1 cm duodenal diverticulum. Unremarkable appearance of the kidneys. Cyst of the superior pole right kidney, 1.8 cm. Pelvic floor relaxation with small cystocele. Hysterectomy. Calcified plaque of the abdominal aorta. No adenopathy . There is mild wall thickening of the distal gastric body and antrum. Scattered small bowel air. No bowel obstruction. Colonic diverticulosis without acute diverticulitis. Moderate fecal retention. The appendix is reportedly surgically absent. No ascites or mesenteric inflammation. The soft tissues ar e unremarkable exception of dermal thickening of the right breast. 2.1 x 1.7 cm hypodense focus of th e right breast extends towards the nipple, possibly postsurgical. Degenerative changes of the spine, pelvis and hips. Grade 1 anterolisthesis L4 on L5 with multilevel degenerative changes. IMPRESSION: 1. No bowel obstruction or bowel wall thickening. 2. Mild wall thickening of the distal stomach may be secondary to partial distention versus a nonspec ific gastritis. 3. Moderate intrahepatic and extrahepatic biliary ductal dilation may be on a postsurgical basis from prior cholecystectomy. Correlate with laboratory analysis. 4. Colonic diverticulosis. 5. Multiple stool-filled loops of small bowel suggest decreased small bowel transit. ACT 112: Negative or not required by law. The above report was generated using voice recognition software. It may contain grammatical, syntax o r spelling errors. Electronically signed by: Tomas Escalante M.D. 07/08/2020 2:44 PM
[2020-07-08] MEDS ORDERED: SODIUM CHLORIDE 0.9% 1000ML 1,000 ML IV ONE (15:28)
--- NOTE | 2020-07-08 15:50 | History & Physical Report ---
Date of Service July 08, 2020 Assessment & Plan (1) Acute pancreatitis: Fortson score 3 (LDH not performed, will add to a.m. labs) - severe pancreatitis likely - given hemodynamic stability and quick resolution of pain (?passed stone) - admit to PCU MRCP given biliary dilation on CT and elevated LFTs to assess for filling defects and biliary tract that would require ERCP Triglycerides with a.m. labs No personal or family history of autoimmune disease. NSS 1L additional bolus now, then LR @ 175 ml/hr NPO except meds and ice chips Analgesia: Dilaudid 0.5 mg IV every 2 hourly as needed Antiemetic: Ondansetron 4 mg IV every 4 hourly PRN (2) Gastritis: Famotidine 20mg IV daily (3) Chronic reflux esophagitis: as above (4) Diabetes: BSG ACHS/Q6H with insulin correction 45 HbA1C with AM labs (5) Hypertension: Continue her usual atenolol. Hold amlodipine in AM pending BP measurements overnight. IV hydralazine 5mg for sBP > 180, however anticipate her BP will drop. (6) Metatarsalgia of both feet: Patient under the impression her plantar metatarsal pain is peripheral neuropathy however no symptoms in her toes and pain is reproducible. Recommend using [id number] metatarsal pads. Follow up with PCP. (7) Sensorineural hearing loss (SNHL): (8) DVT prophylaxis: SCDs. Chemical anticoagulation decision deferred pending need for ERCP. Admission and Anticipated Discharge Date Admission Date: 07/08/2020 History of Present Illness Chief Complaint: Epigastric pain Primary Care Provider: PABLO Arenas Amparo Cedillo is an 85-year-old female who presents to the ER with sudden onset epigastric pain that started at 6 AM this morning. Severity initially is 10/10, currently 1/10. Radiates through to her back. Worse on palpation. Associated nausea and vomiting. No change in her bowels, no melena, bright red blood in stool. She reports a questionable prior episode of pancreatitis 30 years ago - questionable since she tells me this was treated with Maalox. Prior cholecystec maria antonia age [age] years old. In the ER she was given NSS 500 ml bolus, morphine 4 mg IV, Toradol 15 mg IV, Zofran 4 mg IV. On admission she was feeling much improved to the point where she was starting to feel that she may want something to eat. Allergies Allergy/AdvReac Type Severity Reaction Status Date / Time bee venom protein (honey bee) Allergy Intermediate HIVES Verified 07/08/20 13:02 Sulfa (Sulfonamide Allergy Unknown . Verified 07/08/20 13:02 Antibiotics) lisinopril Allergy COUGH Verified 07/08/20 13:02 Home Medications Home Medications Medication Instructions Recorded Confirmed Type blood sugar diagnostic See Rx Instructions .ROUTE 08/11/19 07/08/20 Rx .COMPLEX #100 strip atenolol 25 mg tablet 25 mg PO DAILY #30 tab 05/08/20 07/08/20 Rx triamcinolone acetonide 0.1 % 1 appln TOP BID PRN #15 gm 05/08/20 07/08/20 Rx topical cream amlodipine 5 mg tablet 5 mg PO DAILY #90 tab 06/21/20 07/08/20 Rx ergocalciferol (vitamin D2) 10 mcg PO DAILY 07/08/20 07/08/20 History [Vitamin D2] metformin 500 mg PO DAILY 07/08/20 07/08/20 History Past Med/Surg History Medical History Acid reflux Acid reflux disease Breast cancer, right breast Chronic reflux esophagitis Diabetes Hyperlipidemia Hypertension Sensorineural hearing loss (SNHL) Surgical History H/O right breast biopsy 20 years ago - benign H/O total hysterectomy with bilateral salpingo-oophorectomy (BSO) History of appendectomy History of cholecystectomy Hx of cataract surgery Only right eye Status post excisional biopsy Bilateral excisional biopsies - benign Status post right breast lumpectomy 2017 and then 2019 for a recurrence SLN biopsy as well Family History Mother , 68yo; Stroke Hypertension Father , at 52yo; Heart disease Smoker Sister Hypertension COPD (chronic obstructive pulmonary disease) CHF (congestive heart failure) Obesity Sister Diabetes 1.5, managed as type 1 Hypertension Paget's disease Son Myocardial infarction History of heart artery stent Tongue cancer Lyme disease Bipolar affect, depressed Son Brain cancer Daughter Leukemia Cervical cancer Denies family history of Ovarian cancer Prostate cancer Breast cancer Colorectal cancer Social History Smoking Status: Never smoker Second Hand Exposure: No; Do You Dip or Chew Tobacco: No; Tobacco Cessation Education Requested by Patient: No Hx Alcohol Use: No Hx Substance Use: No Preferred Language: Israeli Communication Ability: Effective Visual Impairment: No Limitations Hearing Ability: Normal Public Message Service Supervisor Required: No Beliefs That Will Affect Care: None marital status: Current Living Situation: Spouse current occupational status: 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 Other Information That Helps Us Care for You: No Feels Safe at Home: Yes Safety Concerns: Feels Safe At This Time caffeine: Yes (3 cups/day) during the past year weight has: remained stable Dental Care, Regularly: Yes Physical Activity Frequency: Does not Exercise Seatbelt Use: always Sunscreen Use: No Review of Systems Review of Systems: All systems reviewed & are unremarkable except as noted in HPI & below Physical Exam Constitutional: well developed and well nourished; no acute distress Eyes: + anicteric sclerae; normal pupil size ENMT: external ear and nose normal, oropharynx normal Neck: trachea midline, no thyromegaly Respiratory: normal respiratory effort, lungs clear to auscultation Cardiovascular: RRR, no murmur, no edema Gastrointestinal (Abdomen): Inspection/Auscultation: abdomen normal to inspection and normal bowel sounds; abdomen not distended Percussion/Palpation: + abdomen tender (Epigastric, no rebound) and abdomen soft; no guarding and abdomen not rigid Musculoskeletal: no cyanosis or clubbing, extremities motor strength 5/5 Skin: no rashes, warm and dry Neurologic: moves all extremities and awake; not confused Psychiatric: A+Ox3, euthymic affect Genitourinary: no CVA tenderness Results & Data Results & Data ([facility]) Vital Signs (Past 12 Hours) Vital Signs Temp Pulse Resp BP Pulse Ox 07/08/20 11:58 36.4 C L 75 19 195/72 H 100 Diagnostic Findings XR chest 1V portable IMPRESSION: No acute process. ABDOMEN AND PELVIS CT WITH IV CONTRAST IMPRESSION: 1. No bowel obstruction or bowel wall thickening. 2. Mild wall thickening of the distal stomach may be secondary to partial distention versus a nonspecific gastritis. 3. Moderate intrahepatic and extrahepatic biliary ductal dilation may be on a postsurgical basis from prior cholecystectomy. Correlate with laboratory analysis. 4. Colonic diverticulosis. 5. Multiple stool-filled loops of small bowel suggest decreased small bowel transit. ECG Indication: abdominal pain Rate (beats per minute): 89 Rhythm: normal sinus Findings: no acute ischemic change Comparison ECG Date: from (May 07, 2016) Change: no significant change Code Status & VTE Plan Code Status DNR/DNI as per patient wishes VTE Prophylaxis Plan VTE Prophylaxis will be ordered: Yes PG Care Time/CCT Total # of Minutes Spent Total Time Spent with Patient: Total time spent is greater than 50% in coordination of care (as documented) at patient's floor/unit and/or counseling patient: Coding Level of Care Code 64904 Initial Inpt Care Lvl 3 Diagnoses Acute pancreatitis K85.90 Gastritis K29.70 Chronic reflux esophagitis K21.0 Diabetes E11.9 Hypertension I10 Metatarsalgia of both feet M77.41; M77.42 Sensorineural hearing loss (SNHL) H90.5 DVT prophylaxis Z29.9
[2020-07-08] MEDS ORDERED: FAMOTIDINE 20MG/5ML IV PUSH IV STA (15:52)
[2020-07-08] MEDS ORDERED: ONDANSETRON INJ 2 MG/ML 2 ML VIAL IV PRN (17:40)
[2020-07-08] MEDS ORDERED: GLUCAGON FOR INJ 1 MG VIAL SQ PRN (17:40)
[2020-07-08] MEDS ORDERED: CARBOHYDRATES FOR HYPOGLYCEMIA PO PRN (17:40)
[2020-07-08] MEDS ORDERED: DEXTROSE 50% 50 ML SYRINGE IV PRN (17:40)
[2020-07-08] MEDS ORDERED: GLUCOSE 10 TABS/TUBE PO PRN (17:40)
[2020-07-08] MEDS ORDERED: GLUCOSE 40% GEL 15 GM TUBE PO PRN (17:40)
[2020-07-08] MEDS ORDERED: TRIAMCINOLONE ACET 0.1% CR 15 GM TUBE TOP PRN (17:40)
[2020-07-08] MEDS ORDERED: HYDROmorphone INJ 0.5 MG/0.5 ML SYR IV PRN (17:40)
--- NOTE | 2020-07-08 18:04 | Magnetic Resonance Report ---
MR MRCP HISTORY: 85 years-old Female r/o retained ciliary stones acute epigastric abdominal pain with nausea and vomiting COMPARISON: CT abdomen and pelvis of same day, MRCP 05/08/2016 TECHNIQUE: MRCP without the use of IV contrast was obtained according to institutional protocol FINDINGS: Motion degraded exam. Clear lung bases. Cardiomegaly. Unremarkable spleen, and right adrenal gland ap pear unremarkable. Unchanged nodular thickening of the left adrenal gland. Moderate pancreatic atroph y. No pancreatic ductal dilation. Mild nonspecific bilateral perinephric stranding. No obstructive ur opathy. 1.5 cm cyst of the superior pole right kidney. No aortic aneurysm or adenopathy. Unremarkable IVC. No bowel dilation or free pelvic fluid. Duodenal diverticulum. Study is motion degraded. Soft t issues are unremarkable. Posterior disc osteophyte complex formations are noted at multiple levels wi th resultant associated multilevel central canal stenosis. Cholecystectomy. Moderate intrahepatic and extrahepatic biliary ductal dilation the common bile duct measuring up to 1.4 cm transversely, previously 1.0 cm on the 2016 exam.. 7 mm T1 and T2 hypointense filling defect involves the distal common bile duct suggestive of choledocholithiasis. No obstructing biliary mass identified. There is an equivocal subcentimeter filling defects within the common hepat ic duct on image 71 series 13 which is not corroborated on additional images, POSS artifactual. IMPRESSION: 1. Mildly motion degraded exam. 2. Prior cholecystectomy with moderate intrahepatic and extrahepatic biliary ductal dilation, progres sed from the comparison 2016 exam. 7 mm filling defect in the distal common bile duct suggests choled ocholithiasis. 3. No pancreatic ductal dilation. ACT 112: Negative or not required by law. The above report was generated using voice recognition software. It may contain grammatical, syntax o r spelling errors. Electronically signed by: Tomas Escalante M.D. 07/08/2020 6:02 PM
[2020-07-08] MEDS: ATENOLOL 25 MG TABLET PO SCH (18:31)
[2020-07-08] MEDS: INSULIN ASPART 100 UNITS/ML 3 ML PEN SC SCH ×2 (18:31→20:24)
[2020-07-08] MEDS: LACTATED RINGER'S 1,000 ML IV SCH (18:41)
[2020-07-09] MEDS: LACTATED RINGER'S 1,000 ML IV SCH ×5 (00:23→19:59)
[2020-07-09 05:43] LABS: Basophils # (auto) 0.01 K/uL (0-0.2); Basophils % (auto) 0.1 %; Eosinophils # (auto) 0.03 K/uL (0-0.5); Eosinophils % (auto) 0.2 %; Hemoglobin 12.5 g/dL (12.0-16.0); Immature Granulocytes # (auto) 0.04 K/uL (0.00-0.02); Immature Granulocytes % (auto) 0.3 %; Lymphocytes # (auto) 0.81 K/uL (1.2-3.4); Lymphocytes % (auto) 5.2 %; Mean Corpuscular Hemoglobin 30.6 pg (25-34); Mean Corpuscular Hgb Conc 33.8 g/dL (32-36); Mean Corpuscular Volume 90.7 fL (80-100); Mean Platelet Volume 10.5 fL (7.4-10.4); Monocytes # (auto) 1.26 K/uL (0.11-0.59); Monocytes % (auto) 8.1 %; Neutrophils # (auto) 13.33 K/uL (1.4-6.5); Neutrophils % (auto) 86.1 %; Platelet Count 257 K/uL (130-400); RDW Coefficient of Variation 13.9 % (11.5-14.5); RDW Standard Deviation 45.7 fL (36.4-46.3); Red Blood Count 4.08 M/uL (4.2-5.4); White Blood Count 15.48 K/uL (4.8-10.8)
[2020-07-09 06:22] LABS: BUN Creatinine Ratio 18.7 (10-20); Bilirubin Direct 3.2 mg/dl (0-0.2); Calcium 8.7 mg/dl (8.5-10.1); Creatinine Clr Calc Pharmacy 42.3 ml/min; Est GFR (African American) 58.2; Est GFR (Non-African American) 50.2; Potassium 3.8 mmol/L (3.5-5.1); Total Protein 6.9 gm/dl (6.4-8.2)
--- NOTE | 2020-07-09 06:59 | Electrocardiogram Report ---
Test Reason : Blood Pressure : / mmHG Vent. Rate : 089 BPM Atrial Rate : 089 BPM P-R Int : 148 ms QRS Dur : 090 ms QT Int : 380 ms P-R-T Axes : 044 043 033 degrees QTc Int : 462 ms Normal sinus rhythm Nonspecific ST abnormality Abnormal ECG When compared with ECG of 07-MAY-2016 12:10, No significant change was found Confirmed by Lele Hernandez ([id number]) on 07/09/2020 6:59:42 AM Referred By: REFERRED SELF Confirmed By:Lele Hernandez
[2020-07-09 07:29] LABS: Estimated Average Glucose 137 mg/dl; Hemoglobin A1C 6.4 % (4.5-5.6)
[2020-07-09] MEDS: INSULIN ASPART 100 UNITS/ML 3 ML PEN SC SCH ×4 (08:21→20:03)
[2020-07-09] MEDS: FAMOTIDINE 20 MG in SYRINGE 3 ML IV SCH (08:22)
[2020-07-09] MEDS ORDERED: FAMOTIDINE 20 MG in SYRINGE 3 ML IV ONE (09:00)
--- NOTE | 2020-07-09 09:37 | Gastrointestinal Consultation ---
Date of Consultation July 09, 2020 Assessment & Plan (1) Epigastric abdominal pain: (2) Acute pancreatitis: (3) Choledocholithiasis: gallstone pancreatitis with filling defect on MRCP, symptomatically improved; no evidence of cholangitis Recs: keep NPO ERCP likely today to remove stone continue IVFs, pain control prn rest as per primary team Thank you for allowing me to participate in the care of this patient. History of Present Illness Attending Physician: Geovani Cruz MD 85 yo female with hx pancreatitis and CCY here with acute pancreaittis. She noted epigastric pains yesterday morning, was 10/10 and going to her back. Also had n/v, denied hematochezia. GI consulted as she had MRCP done which showed choledocholithiasis. Today she notes she is without pain, says it has resolved last night. labs reviewed, tbili 4.5.leukocytosis noted. VSS, afebrile. Allergies Allergy/AdvReac Type Severity Reaction Status Date / Time bee venom protein (honey bee) Allergy Intermediate HIVES Verified 07/08/20 13:02 Sulfa (Sulfonamide Allergy Unknown . Verified 07/08/20 13:02 Antibiotics) lisinopril Allergy COUGH Verified 07/08/20 13:02 Home Medications Home Medications Medication Instructions Recorded Confirmed Type blood sugar diagnostic See Rx Instructions .ROUTE 08/11/19 07/08/20 Rx .COMPLEX #100 strip atenolol 25 mg tablet 25 mg PO DAILY #30 tab 05/08/20 07/08/20 Rx triamcinolone acetonide 0.1 % 1 appln TOP BID PRN #15 gm 05/08/20 07/08/20 Rx topical cream amlodipine 5 mg tablet 5 mg PO DAILY #90 tab 06/21/20 07/08/20 Rx ergocalciferol (vitamin D2) 10 mcg PO DAILY 07/08/20 07/08/20 History [Vitamin D2] metformin 500 mg PO DAILY 07/08/20 07/08/20 History Patient History Medical History Acid reflux Acid reflux disease Breast cancer, right breast Chronic reflux esophagitis Diabetes Hyperlipidemia Hypertension Sensorineural hearing loss (SNHL) Surgical History H/O right breast biopsy 20 years ago - benign H/O total hysterectomy with bilateral salpingo-oophorectomy (BSO) History of appendectomy History of cholecystectomy Hx of cataract surgery Only right eye Status post excisional biopsy Bilateral excisional biopsies - benign Status post right breast lumpectomy 2016 and then 2019 for a recurrence SLN biopsy as well Family History Mother , 68yo; Stroke Hypertension Father , at 52yo; Heart disease Smoker Sister Hypertension COPD (chronic obstructive pulmonary disease) CHF (congestive heart failure) Obesity Sister Diabetes 1.5, managed as type 1 Hypertension Paget's disease Son Myocardial infarction History of heart artery stent Tongue cancer Lyme disease Bipolar affect, depressed Son Brain cancer Daughter Leukemia Cervical cancer Denies family history of Ovarian cancer Prostate cancer Breast cancer Colorectal cancer Social History Smoking Status: Never smoker Second Hand Exposure: No; Do You Dip or Chew Tobacco: No; Tobacco Cessation Education Requested by Patient: No Hx Alcohol Use: No Hx Substance Use: No Preferred Language: Maldivian Communication Ability: Effective Visual Impairment: No Limitations Hearing Ability: Normal Aquaculture Program Director Required: No Beliefs That Will Affect Care: None marital status: Current Living Situation: Spouse 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 occupational status: 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 Other Information That Helps Us Care for You: No Feels Safe at Home: Yes Safety Concerns: Feels Safe At This Time caffeine: Yes (3 cups/day) during the past year weight has: remained stable Dental Care, Regularly: Yes Physical Activity Frequency: Does not Exercise Seatbelt Use: always Sunscreen Use: No Review of Systems Constitutional: no fever, no chills and no weight loss Eyes: as per Subjective / HPI Ear, Nose, Mouth, Throat: as per Subjective / HPI Respiratory: no dyspnea and no dyspnea on exertion Cardiovascular: no chest pain and no palpitations Gastrointestinal: as per Subjective / HPI Musculoskeletal: no joint pain and no swelling Integumentary: no rash and no lesions Neurologic: no numbness and no paresthesia Psychiatric: no depression and no anxiety Endocrine: no fatigue Hematologic / Lymphatic: no easy bleeding and no easy bruising Physical Exam Constitutional: WD/WN, vitals as above Eyes: EOM intact bilaterally Neck: normal visual inspection Respiratory: normal respiratory effort, lungs clear to auscultation Cardiovascular: RRR, no murmur, no edema Gastrointestinal (Abdomen): Inspection/Auscultation: abdomen normal to inspection; abdomen not distended Percussion/Palpation: abdomen soft; abdomen nontender and no hepatosplenomegaly Musculoskeletal: Extremities: no cyanosis Gait: normal gait Skin: no rashes, warm and dry Neurologic: moves all extremities Psychiatric: A+Ox3, euthymic affect Results & Data ([facility]) Vital Signs (Past 12 Hours) Vital Signs Temp Pulse Pulse Resp BP Pulse Ox 07/09/20 07:42 36.8 C 68 18 151/79 H 98 07/09/20 05:20 36.7 C 67 16 150/79 H 90 07/08/20 23:25 36.7 C 65 18 125/71 93 07/08/20 23:00 71 PG Care Time/CCT Total # of Minutes Spent Total Time Spent with Patient: Total time spent is greater than 50% in coordination of care (as documented) at patient's floor/unit and/or counseling patient: Coding Level of Care Code 39870 Initial Inpt Care Lvl 3 Diagnoses Epigastric abdominal pain R10.13 Acute pancreatitis K85.00 Acute pancreatitis complication: no infection or necrosis Pancreatitis type: idiopathic Choledocholithiasis K80.50 (1) Acute pancreatitis Acute pancreatitis complication: no infection or necrosis Pancreatitis type: idiopathic Qualified Code(s): K85.00 - Idiopathic acute pancreatitis without necrosis or infection
--- NOTE | 2020-07-09 09:56 | Hospitalist Progress Note ---
Date of Service July 09, 2020 Assessment & Plan (1) Choledocholithiasis: * Initially admitted for severe pancreatitis with Lipase 88127 on admission --> improving, currently 2472 * Corinth score 3 (LDH not performed on admission but added to labs, elevated at 264) - severe pancreatitis - given hemodynamic stability and quick resolution of pain (?passed stone) * CTAP with moderate intrahepatic and extrahepatic biliary ductal dilation * MRCP with 7 mm filling defects in distal common bile duct suggesting choledocholithiasis -- will need ERCP for likely stone (pt with hx cholecystectomy at age 23). No family hx autoimmune disease * Bilirubin and LFTs elevated --> Tbili up to 4.0, direct bili 3.2 --> AST 296, ALT 246, alk phos 264 * Triglycerides wnl at 101. A1c 6.4 * Had received 1L NSS bolus and continuing LR @ 175cc/hr * GI consulted -- appreciate assistance * NPO for ERCP today * Dilaudid 0.5mg IV Q2h prn pain, Zofran 4mg IV Q4h n/v * Continue to monitor labs (2) Acute pancreatitis: * See above, improving (3) Gastritis: * Famotidine 20mg IV daily (4) Chronic reflux esophagitis: * as above (5) Diabetes: * BSG ACHS/Q6H with insulin CF 45 * HbA1C 6.4 * POC glucose has been 125-189 * Continue to monitor (6) Hypertension: * Continue her usual atenolol 25mg PO daily --> changed to tonight's as patient previously refused dose * BP 151/79 -- will resume amlodipine 5mg po daily * Continue to monitor * May utilize hydralazine prn SBP >180 (7) Metatarsalgia of both feet: * Patient under the impression her plantar metatarsal pain is peripheral neuropathy however no symptoms in her toes and pain is reproducible. * Recommend using [id number] metatarsal pads. * Follow up with PCP outpatient (8) Sensorineural hearing loss (SNHL): * Noted (9) CHRISTOPHER (acute kidney injury): * Cr 1.25 on admission. * Baseline Cr ~1, eGFR 40-53 since 2018 in system * IVF as above * Cr back to baseline, 1.03 * BMP in AM (10) CKD (chronic kidney disease), stage III: * As above * Not on KATY/ARB, although would avoid in pancreatitis currently * Monitor labs (11) Hematuria: * Reported * Repeat UA (12) DVT prophylaxis: * SCDs. * Chemical anticoagulation held for ERCP today Dispo; ERCP this afternoon with GI Admission and Anticipated Discharge Date Admission Date: July 08, 2020 Subjective Patient evaluated this morning. States pain much improved, currently 3/10. No further nausea or vomiting. Had normal bowel movement this morning. She did note that she had some bright red blood in her urine. No history of Ochoa or straight cath during this admission. Denies fevers, chills, chest pain, shortness of breath, dysuria. Review of Systems Review of Systems: All systems reviewed & are unremarkable except as noted in HPI & below Physical Exam Constitutional: WD/WN, vitals as above Eyes: EOM intact bilaterally; sclerae not anicteric ENMT: Ears: + hearing impairment Neck: normal visual inspection Respiratory: normal respiratory effort, lungs clear to auscultation Cardiovascular: RRR, no murmur, no edema Gastrointestinal (Abdomen): Inspection/Auscultation: abdomen normal to inspection; abdomen not distended Percussion/Palpation: abdomen soft; abdomen nontender and no hepatosplenomegaly Musculoskeletal: Extremities: no cyanosis Gait: normal gait Skin: no rashes, warm and dry Neurologic: moves all extremities Psychiatric: A+Ox3, euthymic affect Lymphatic: no cervical or axillary lymphadenopathy Results & Data Results & Data ([facility]) Vital Signs (Past 12 Hours) Vital Signs Temp Pulse Pulse Resp BP Pulse Ox 07/09/20 07:42 36.8 C 68 18 151/79 H 98 07/09/20 05:20 36.7 C 67 16 150/79 H 90 07/08/20 23:25 36.7 C 65 18 125/71 93 07/08/20 23:00 71 Laboratory Results 07/09/20 07/09/20 07/09/20 Range/Units 07:20 05:13 05:13 WBC (4.8-10.8) K/uL RBC (4.2-5.4) M/uL Hgb (12.0-16.0) g/dL Hct (37-47) % MCV (80-100) fL MCH (25-34) pg MCHC (32-36) g/dL RDW Std Deviation (36.4-46.3) fL RDW Coeff of Xena (11.5-14.5) % Plt Count (130-400) K/uL MPV (7.4-10.4) fL Immature Gran % (Auto) % Neut % (Auto) % Lymph % (Auto) % [place] % (Auto) % Eos % (Auto) % Baso % (Auto) % Neut # (Auto) (1.4-6.5) K/uL Lymph # (Auto) (1.2-3.4) K/uL [place] # (Auto) (0.11-0.59) K/uL Eos # (Auto) (0-0.5) K/uL Baso # (Auto) (0-0.2) K/uL Immature Gran # (Auto) (0.00-0.02) K/uL Sodium (136-145) mmol/L Potassium (3.5-5.1) mmol/L Chloride (98-107) mmol/L Carbon Dioxide (21-32) mmol/L Anion Gap (3-11) BUN (7-18) mg/dl Creatinine (0.6-1.2) mg/dl Est Cr Clr Drug Dosing ml/min Est GFR ( Amer) Est GFR (Non-Af Amer) BUN/Creatinine Ratio (10-20) Glucose (70-99) mg/dl POC Glucose 135 H (70-99) mg/dl Estimat Average Glucose 137 mg/dl Hemoglobin A1c 6.4 H (4.5-5.6) % Calcium (8.5-10.1) mg/dl Total Bilirubin (0.2-1) mg/dl Direct Bilirubin (0-0.2) mg/dl AST (15-37) U/L ALT (12-78) U/L Alkaline Phosphatase (45-117) U/L Lactate Dehydrogenase 264 H (84-246) U/L Troponin I (0-0.045) ng/ml Total Protein (6.4-8.2) gm/dl Albumin (3.4-5.0) gm/dl Globulin (2.5-4.0) gm/dl Albumin/Globulin Ratio (0.9-2) Triglycerides (0-150) mg/dl Lipase (73-393) U/L Urine Color Urine Appearance (Clear) Urine pH (4.5-7.5) Ur Specific [place] (1.000-1.030) Urine Protein (Negative) Urine Glucose (UA) (Negative) Urine Ketones (Negative) Urine Blood (Negative) Urine Nitrite (Negative) Urine Bilirubin (Negative) Urine Urobilinogen (Negative) Ur Leukocyte Esterase (Negative) Urine WBC (Auto) (0-5) /hpf Urine RBC (Auto) (0-4) /hpf U Hyaline Cast (Auto) (0-5) /lpf U Epithel Cells (Auto) (0-5) /lpf Urine Bacteria (Auto) (Negative) 07/09/20 07/09/20 07/08/20 Range/Units 05:13 05:13 20:11 WBC 15.48 H (4.8-10.8) K/uL RBC 4.08 L (4.2-5.4) M/uL Hgb 12.5 (12.0-16.0) g/dL Hct 37.0 (37-47) % MCV 90.7 (80-100) fL MCH 30.6 (25-34) pg MCHC 33.8 (32-36) g/dL RDW Std Deviation 45.7 (36.4-46.3) fL RDW Coeff of Xena 13.9 (11.5-14.5) % Plt Count 257 (130-400) K/uL MPV 10.5 H (7.4-10.4) fL Immature Gran % (Auto) 0.3 % Neut % (Auto) 86.1 % Lymph % (Auto) 5.2 % [place] % (Auto) 8.1 % Eos % (Auto) 0.2 % Baso % (Auto) 0.1 % Neut # (Auto) 13.33 H (1.4-6.5) K/uL Lymph # (Auto) 0.81 L (1.2-3.4) K/uL [place] # (Auto) 1.26 H (0.11-0.59) K/uL Eos # (Auto) 0.03 (0-0.5) K/uL Baso # (Auto) 0.01 (0-0.2) K/uL Immature Gran # (Auto) 0.04 H (0.00-0.02) K/uL Sodium 139 (136-145) mmol/L Potassium 3.8 (3.5-5.1) mmol/L Chloride 106 (98-107) mmol/L Carbon Dioxide 24 (21-32) mmol/L Anion Gap 9.0 (3-11) BUN 19 H (7-18) mg/dl Creatinine 1.03 (0.6-1.2) mg/dl Est Cr Clr Drug Dosing 42.3 ml/min Est GFR ( Amer) 58.2 Est GFR (Non-Af Amer) 50.2 BUN/Creatinine Ratio 18.7 (10-20) Glucose 133 H (70-99) mg/dl POC Glucose 189 H (70-99) mg/dl Estimat Average Glucose mg/dl Hemoglobin A1c (4.5-5.6) % Calcium 8.7 (8.5-10.1) mg/dl Total Bilirubin 4.0 H D (0.2-1) mg/dl Direct Bilirubin 3.2 H (0-0.2) mg/dl AST 296 H (15-37) U/L ALT 246 H (12-78) U/L Alkaline Phosphatase 127 H (45-117) U/L Lactate Dehydrogenase (84-246) U/L Troponin I (0-0.045) ng/ml Total Protein 6.9 (6.4-8.2) gm/dl Albumin 3.0 L (3.4-5.0) gm/dl Globulin (2.5-4.0) gm/dl Albumin/Globulin Ratio (0.9-2) Triglycerides 101 (0-150) mg/dl Lipase 2472 H (73-393) U/L Urine Color Urine Appearance (Clear) Urine pH (4.5-7.5) Ur Specific [place] (1.000-1.030) Urine Protein (Negative) Urine Glucose (UA) (Negative) Urine Ketones (Negative) Urine Blood (Negative) Urine Nitrite (Negative) Urine Bilirubin (Negative) Urine Urobilinogen (Negative) Ur Leukocyte Esterase (Negative) Urine WBC (Auto) (0-5) /hpf Urine RBC (Auto) (0-4) /hpf U Hyaline Cast (Auto) (0-5) /lpf U Epithel Cells (Auto) (0-5) /lpf Urine Bacteria (Auto) (Negative) 09/06/20 09/06/20 09/06/20 Range/Units 17:15 12:25 12:25 WBC 16.04 H (4.8-10.8) K/uL RBC 4.63 (4.2-5.4) M/uL Hgb 14.4 (12.0-16.0) g/dL Hct 42.1 (37-47) % MCV 90.9 (80-100) fL MCH 31.1 (25-34) pg MCHC 34.2 (32-36) g/dL RDW Std Deviation 43.9 (36.4-46.3) fL RDW Coeff of Xena 13.3 (11.5-14.5) % Plt Count 307 (130-400) K/uL MPV 10.9 H (7.4-10.4) fL Immature Gran % (Auto) 0.1 % Neut % (Auto) 93.0 % Lymph % (Auto) 3.7 % [place] % (Auto) 2.9 % Eos % (Auto) 0.2 % Baso % (Auto) 0.1 % Neut # (Auto) 14.90 H (1.4-6.5) K/uL Lymph # (Auto) 0.60 L (1.2-3.4) K/uL [place] # (Auto) 0.47 (0.11-0.59) K/uL Eos # (Auto) 0.03 (0-0.5) K/uL Baso # (Auto) 0.02 (0-0.2) K/uL Immature Gran # (Auto) 0.02 (0.00-0.02) K/uL Sodium 138 (136-145) mmol/L Potassium 3.6 (3.5-5.1) mmol/L Chloride 102 (98-107) mmol/L Carbon Dioxide 26 (21-32) mmol/L Anion Gap 9.0 (3-11) BUN 20 H (7-18) mg/dl Creatinine 1.25 H (0.6-1.2) mg/dl Est Cr Clr Drug Dosing 34.6 ml/min Est GFR ( Amer) 46.1 Est GFR (Non-Af Amer) 39.7 BUN/Creatinine Ratio 15.8 (10-20) Glucose 226 H (70-99) mg/dl POC Glucose 125 H (70-99) mg/dl Estimat Average Glucose mg/dl Hemoglobin A1c (4.5-5.6) % Calcium 9.8 (8.5-10.1) mg/dl Total Bilirubin 1.5 H (0.2-1) mg/dl Direct Bilirubin (0-0.2) mg/dl AST 184 H (15-37) U/L ALT 106 H (12-78) U/L Alkaline Phosphatase 134 H (45-117) U/L Lactate Dehydrogenase (84-246) U/L Troponin I < 0.015 (0-0.045) ng/ml Total Protein 8.4 H (6.4-8.2) gm/dl Albumin 3.9 (3.4-5.0) gm/dl Globulin 4.5 H (2.5-4.0) gm/dl Albumin/Globulin Ratio 0.9 (0.9-2) Triglycerides (0-150) mg/dl Lipase 54804 H (73-393) U/L Urine Color Urine Appearance (Clear) Urine pH (4.5-7.5) Ur Specific [place] (1.000-1.030) Urine Protein (Negative) Urine Glucose (UA) (Negative) Urine Ketones (Negative) Urine Blood (Negative) Urine Nitrite (Negative) Urine Bilirubin (Negative) Urine Urobilinogen (Negative) Ur Leukocyte Esterase (Negative) Urine WBC (Auto) (0-5) /hpf Urine RBC (Auto) (0-4) /hpf U Hyaline Cast (Auto) (0-5) /lpf U Epithel Cells (Auto) (0-5) /lpf Urine Bacteria (Auto) (Negative) 07/08/20 Range/Units 12:15 WBC (4.8-10.8) K/uL RBC (4.2-5.4) M/uL Hgb (12.0-16.0) g/dL Hct (37-47) % MCV (80-100) fL MCH (25-34) pg MCHC (32-36) g/dL RDW Std Deviation (36.4-46.3) fL RDW Coeff of Xena (11.5-14.5) % Plt Count (130-400) K/uL MPV (7.4-10.4) fL Immature Gran % (Auto) % Neut % (Auto) % Lymph % (Auto) % [place] % (Auto) % Eos % (Auto) % Baso % (Auto) % Neut # (Auto) (1.4-6.5) K/uL Lymph # (Auto) (1.2-3.4) K/uL [place] # (Auto) (0.11-0.59) K/uL Eos # (Auto) (0-0.5) K/uL Baso # (Auto) (0-0.2) K/uL Immature Gran # (Auto) (0.00-0.02) K/uL Sodium (136-145) mmol/L Potassium (3.5-5.1) mmol/L Chloride (98-107) mmol/L Carbon Dioxide (21-32) mmol/L Anion Gap (3-11) BUN (7-18) mg/dl Creatinine (0.6-1.2) mg/dl Est Cr Clr Drug Dosing ml/min Est GFR ( Amer) Est GFR (Non-Af Amer) BUN/Creatinine Ratio (10-20) Glucose (70-99) mg/dl POC Glucose (70-99) mg/dl Estimat Average Glucose mg/dl Hemoglobin A1c (4.5-5.6) % Calcium (8.5-10.1) mg/dl Total Bilirubin (0.2-1) mg/dl Direct Bilirubin (0-0.2) mg/dl AST (15-37) U/L ALT (12-78) U/L Alkaline Phosphatase (45-117) U/L Lactate Dehydrogenase (84-246) U/L Troponin I (0-0.045) ng/ml Total Protein (6.4-8.2) gm/dl Albumin (3.4-5.0) gm/dl Globulin (2.5-4.0) gm/dl Albumin/Globulin Ratio (0.9-2) Triglycerides (0-150) mg/dl Lipase (73-393) U/L Urine Color Dark Yellow Urine Appearance Clear (Clear) Urine pH 8.0 H (4.5-7.5) Ur Specific [place] 1.020 (1.000-1.030) Urine Protein Negative (Negative) Urine Glucose (UA) Trace H (Negative) Urine Ketones Negative (Negative) Urine Blood Negative (Negative) Urine Nitrite Negative (Negative) Urine Bilirubin Negative (Negative) Urine Urobilinogen Positive H (Negative) Ur Leukocyte Esterase Negative (Negative) Urine WBC (Auto) 0 (0-5) /hpf Urine RBC (Auto) 0-4 (0-4) /hpf U Hyaline Cast (Auto) 0 (0-5) /lpf U Epithel Cells (Auto) 10-20 H (0-5) /lpf Urine Bacteria (Auto) Negative (Negative) Diagnostic Findings CT A/P IMPRESSION: 1. No bowel obstruction or bowel wall thickening. 2. Mild wall thickening of the distal stomach may be secondary to partial distention versus a nonspecific gastritis. 3. Moderate intrahepatic and extrahepatic biliary ductal dilation may be on a postsurgical basis from prior cholecystectomy. Correlate with laboratory a nalysis. 4. Colonic diverticulosis. 5. Multiple stool-filled loops of small bowel suggest decreased small bowel transit. CXR IMPRESSION: No acute process. MRCP IMPRESSION: 1. Mildly motion degraded exam. 2. Prior cholecystectomy with moderate intrahepatic and extrahepatic biliary ductal dilation, progressed from the comparison 2016 exam. 7 mm filling defect in the distal common bile duct suggests choledocholithiasis. 3. No pancreatic ductal dilation. PG Care Time/CCT Total # of Minutes Spent Total Time Spent with Patient: Total time spent is greater than 50% in coordination of care (as documented) at patient's floor/unit and/or counseling patient: Coding Level of Care Code 55025 Subseq Hosp Care Lvl 3 Diagnoses Choledocholithiasis K80.50 Acute pancreatitis K85.90 Gastritis K29.70 Chronic reflux esophagitis K21.0 Diabetes E11.9 Hypertension I10 Metatarsalgia of both feet M77.41; M77.42 Sensorineural hearing loss (SNHL) H90.5 CHRISTOPHER (acute kidney injury) N17.9 CKD (chronic kidney disease), stage III N18.3 Hematuria R31.9 DVT prophylaxis Z29.9
[2020-07-09] MEDS: ATENOLOL 25 MG TABLET PO SCH (10:15)
[2020-07-09] MEDS ORDERED: ACETAMINOPHEN 325 MG TAB PO PRN (18:06)
[2020-07-09] MEDS ORDERED: ATENOLOL 25 MG TABLET PO SCH (19:00)
[2020-07-10] MEDS: LACTATED RINGER'S 1,000 ML IV SCH (02:31)
[2020-07-10 06:59] LABS: Hematocrit (blood only) 38.2 % (37-47); Hemoglobin 12.8 g/dL (12.0-16.0); Mean Corpuscular Hemoglobin 30.6 pg (25-34); Mean Corpuscular Hgb Conc 33.5 g/dL (32-36); Mean Corpuscular Volume 91.4 fL (80-100); Mean Platelet Volume 10.7 fL (7.4-10.4); Platelet Count 246 K/uL (130-400); RDW Coefficient of Variation 14.3 % (11.5-14.5); RDW Standard Deviation 47.5 fL (36.4-46.3); Red Blood Count 4.18 M/uL (4.2-5.4); White Blood Count 11.61 K/uL (4.8-10.8)
[2020-07-10 07:38] LABS: Albumin Globulin Ratio 0.7 (0.9-2); Albumin Level 2.9 gm/dl (3.4-5.0); BUN Creatinine Ratio 11.3 (10-20); Bilirubin,Total 2.2 mg/dl (0.2-1); Calcium 8.8 mg/dl (8.5-10.1); Creatinine Clr Calc Pharmacy 45.8 ml/min; Est GFR (African American) 63.4; Est GFR (Non-African American) 54.7; Potassium 3.3 mmol/L (3.5-5.1); Total Protein 6.9 gm/dl (6.4-8.2)
--- NOTE | 2020-07-10 08:03 | XRay Report ---
XR chest 1V portable HISTORY: Hypoxia COMPARISON: Chest 07/08/2020. FINDINGS: The heart is normal in size. There are low lung volumes. No pneumothorax. There is a new oropeza zy opacity seen within the base of the right lower lobe. Trace bilateral pleural effusions and small left basilar densities persist. There is mild central pulmonary vascular congestion without overt claudia ma. IMPRESSION: Trace bilateral pleural effusions and a new right lower lobe hazy airspace opacity. This could repres ent a developing pneumonia. ACT 112: Negative or not required by law. Electronically signed by: Marcus Vanegas M.D. 07/10/2020 8:02 AM
[2020-07-10] MEDS: ATENOLOL 25 MG TABLET PO SCH (08:38)
[2020-07-10] MEDS: AMLODIPINE BESYLATE 5 MG TAB PO SCH (08:39)
[2020-07-10] MEDS: POTASSIUM CHLORIDE / WTR 10 MEQ/100 ML PLCT IV SCH ×2 (08:46→10:14)
[2020-07-10] MEDS: INSULIN ASPART 100 UNITS/ML 3 ML PEN SC SCH ×4 (08:47→21:08)
--- NOTE | 2020-07-10 09:08 | Gastroenterology Progress Note ---
Date of Service July 10, 2020 Assessment & Plan (1) Choledocholithiasis: 85 yo female with hx pancreatitis and CCY admitted with acute pancreatitis, with MRCP noting choledocholithiasis. Today abd pain is resolved. Labs reviewed, tbili 4 -> 2.2, WBC 16 ->11, lipase has normalized, K 3.3. Hypertension noted. - Plan for ERCP today - Keep NPO - Please monitor and optimize BP - Please monitor and correct electrolytes - Analgesia, antiemetics PRN - Further recommendations to follow procedure Please see addendum below with additional recommendation from my supervising physician. (2) Acute pancreatitis: Admission and Anticipated Discharge Date Admission Date: July 08, 2020 Supervising Physician Co-Signing Physician Notes I performed a history and physical examination of the patient today, including specifically on physical exam - soft abdomen. I have discussed the patient's management with the advanced practitioner. Please refer to the nurse practitioner's note for the documented findings and plan of care. ERCP today for choledocholithiasis. Risk, benefit and alternatives discussed and patient agreed. Subjective Pt seen and examined. Currently abd pain improved; denies n/v, chest pain, dyspnea, fever. Review of Systems Constitutional: no fever, no chills, no fatigue and no weight loss Eyes: no eye pain and no worsening vision Ear, Nose, Mouth, Throat: no tinnitus, no dizziness, no nasal discharge and no epistaxis Respiratory: no cough, no dyspnea, no dyspnea on exertion and no wheezing Cardiovascular: no chest pain, no orthopnea, no palpitations and no edema Gastrointestinal: as per Subjective / HPI Genitourinary: no dysuria, no urinary frequency, no urinary incontinence and n o hematuria Musculoskeletal: no stiffness and no myalgia Neurologic: no localized weakness, no paralysis, no tremor(s) and no headache(s) Endocrine: no polydipsia and no polyuria Hematologic / Lymphatic: no easy bleeding and no night sweats Physical Exam Constitutional: WD/WN, vitals as above Eyes: + anicteric sclerae Respiratory: normal respiratory effort Cardiovascular: Rate/Rhythm: regular rate and regular rhythm Gastrointestinal (Abdomen): Inspection/Auscultation: abdomen normal to inspection; abdomen not distended Percussion/Palpation: abdomen soft; abdomen nontender Skin: no rashes, warm and dry Psychiatric: A+Ox3, euthymic affect Results & Data ([facility]) Vital Signs (Past 12 Hours) Vital Signs Temp Pulse Pulse Resp BP BP Pulse Ox 07/10/20 07:28 36.7 C 65 19 204/79 H 180/80 H 94 07/10/20 03:12 176/91 H 07/10/20 02:33 36.8 C 74 20 90 07/09/20 23:26 37.1 C 58 L 18 179/58 H 91 07/09/20 22:59 55 L Laboratory Results 07/10/20 07/10/20 07/10/20 Range/Units 07:25 06:33 06:33 WBC (4.8-10.8) K/uL RBC (4.2-5.4) M/uL Hgb (12.0-16.0) g/dL Hct (37-47) % MCV (80-100) fL MCH (25-34) pg MCHC (32-36) g/dL RDW Std Deviation (36.4-46.3) fL RDW Coeff of Xena (11.5-14.5) % Plt Count (130-400) K/uL MPV (7.4-10.4) fL Sodium 139 (136-145) mmol/L Potassium 3.3 L (3.5-5.1) mmol/L Chloride 105 (98-107) mmol/L Carbon Dioxide 27 (21-32) mmol/L Anion Gap 7.0 (3-11) BUN 11 (7-18) mg/dl Creatinine 0.96 (0.6-1.2) mg/dl Est Cr Clr Drug Dosing 45.8 ml/min Est GFR ( Amer) 63.4 Est GFR (Non-Af Amer) 54.7 BUN/Creatinine Ratio 11.3 (10-20) Glucose 135 H (70-99) mg/dl POC Glucose 142 H (70-99) mg/dl Calcium 8.8 (8.5-10.1) mg/dl Magnesium 1.6 L (1.8-2.4) mg/dl Total Bilirubin 2.2 H (0.2-1) mg/dl AST 160 H (15-37) U/L ALT 179 H (12-78) U/L Alkaline Phosphatase 142 H (45-117) U/L Total Protein 6.9 (6.4-8.2) gm/dl Albumin 2.9 L (3.4-5.0) gm/dl Globulin 4.0 (2.5-4.0) gm/dl Albumin/Globulin Ratio 0.7 L (0.9-2) Lipase 182 (73-393) U/L 07/10/20 07/09/20 07/09/20 Range/Units 06:33 20:01 16:15 WBC 11.61 H (4.8-10.8) K/uL RBC 4.18 L (4.2-5.4) M/uL Hgb 12.8 (12.0-16.0) g/dL Hct 38.2 (37-47) % MCV 91.4 (80-100) fL MCH 30.6 (25-34) pg MCHC 33.5 (32-36) g/dL RDW Std Deviation 47.5 H (36.4-46.3) fL RDW Coeff of [place]ena 14.3 (11.5-14.5) % Plt Count 246 (130-400) K/uL MPV 10.7 H (7.4-10.4) fL Sodium (136-145) mmol/L Potassium (3.5-5.1) mmol/L Chloride (98-107) mmol/L Carbon Dioxide (21-32) mmol/L Anion Gap (3-11) BUN (7-18) mg/dl Creatinine (0.6-1.2) mg/dl Est Cr Clr Drug Dosing ml/min Est GFR ( Amer) Est GFR (Non-Af Amer) BUN/Creatinine Ratio (10-20) Glucose (70-99) mg/dl POC Glucose 223 H 139 H (70-99) mg/dl Calcium (8.5-10.1) mg/dl Magnesium (1.8-2.4) mg/dl Total Bilirubin (0.2-1) mg/dl AST (15-37) U/L ALT (12-78) U/L Alkaline Phosphatase (45-117) U/L Total Protein (6.4-8.2) gm/dl Albumin (3.4-5.0) gm/dl Globulin (2.5-4.0) gm/dl Albumin/Globulin Ratio (0.9-2) Lipase (73-393) U/L 07/09/20 Range/Units 11:22 WBC (4.8-10.8) K/uL RBC (4.2-5.4) M/uL Hgb (12.0-16.0) g/dL Hct (37-47) % MCV (80-100) fL MCH (25-34) pg MCHC (32-36) g/dL RDW Std Deviation (36.4-46.3) fL RDW Coeff of Xena (11.5-14.5) % Plt Count (130-400) K/uL MPV (7.4-10.4) fL Sodium (136-145) mmol/L Potassium (3.5-5.1) mmol/L Chloride (98-107) mmol/L Carbon Dioxide (21-32) mmol/L Anion Gap (3-11) BUN (7-18) mg/dl Creatinine (0.6-1.2) mg/dl Est Cr Clr Drug Dosing ml/min Est GFR ( Amer) Est GFR (Non-Af Amer) BUN/Creatinine Ratio (10-20) Glucose (70-99) mg/dl POC Glucose 186 H (70-99) mg/dl Calcium (8.5-10.1) mg/dl Magnesium (1.8-2.4) mg/dl Total Bilirubin (0.2-1) mg/dl AST (15-37) U/L ALT (12-78) U/L Alkaline Phosphatase (45-117) U/L Total Protein (6.4-8.2) gm/dl Albumin (3.4-5.0) gm/dl Globulin (2.5-4.0) gm/dl Albumin/Globulin Ratio (0.9-2) Lipase (73-393) U/L
[2020-07-10] MEDS ORDERED: HydrALAZINE HCL 20 MG/ML VIAL IV STA (09:11)
[2020-07-10] MEDS: FAMOTIDINE 20 MG in SYRINGE 3 ML IV SCH (10:06)
[2020-07-10] MEDS: MAGNESIUM SULFATE / D5W 1 GM/100 ML BAG IV SCH ×2 (10:51→12:55)
--- NOTE | 2020-07-10 11:07 | Hospitalist Progress Note ---
Date of Service July 10, 2020 Assessment & Plan (1) Choledocholithiasis: * Initially admitted for severe pancreatitis with Lipase 81082 on admission --> resolved, currently 182 * Celeste score 3 (LDH not performed on admission but added to labs, elevated at 264) - severe pancreatitis - given hemodynamic stability and quick resolution of pain (?passed stone) * CTAP with moderate intrahepatic and extrahepatic biliary ductal dilation * MRCP with 7 mm filling defects in distal common bile duct suggesting choledocholithiasis -- will need ERCP for likely stone (pt with hx cholecystectomy at age 23). No family hx autoimmune disease * Bilirubin and LFTs elevated but improving --> Tbili down to 2.2 from 4, AST 160, ALT 179, Alk phos 242 * Triglycerides wnl at 101. A1c 6.4 * GI consulted -- appreciate assistance * NPO for ERCP today * Dilaudid 0.5mg IV Q2h prn pain, Zofran 4mg IV Q4h n/v * IVF discontinued given volume overload and req O2 overnight --> currently 93% on RA. CXR with trace effusions, hazy RLL opacity and ordered incentive spirometer * Replaced K 3.3 with 2gm IV, Mag 1.6 with 2gm IV * Monitor AM labs (2) Acute pancreatitis: * See above, resolved. Lipase 182 (3) Gastritis: * Famotidine 20mg IV daily (4) Chronic reflux esophagitis: * as above (5) Diabetes: * BSG ACHS/Q6H with insulin CF 45 * HbA1C 6.4 * BSGs acceptable * Continue to monitor (6) Hypertension: * Conitnue atenolol 25mg PO daily, amlodipine 5mg po daily * Ordered hydralazine 10mg, 5mg on 07/10 for elevated BPs up to 204/79 this AM. Also gave dose of losartan 25mg * Hydralazine prn * If pressure continue to be elevated would need to add additional agent prior to discharge * BP currently 179/93 -- ordered additional hydralazine * Continue to monitor (7) Metatarsalgia of both feet: * Patient under the impression her plantar metatarsal pain is peripheral neuropathy however no symptoms in her toes and pain is reproducible. * Recommend using [id number] metatarsal pads. * Follow up with PCP outpatient (8) Sensorineural hearing loss (SNHL): * Noted (9) CHRISTOPHER (acute kidney injury): * Cr 1.25 on admission. * Baseline Cr ~1, eGFR 40-53 since 2018 in system * IVF as above * Cr back to baseline, 0.96 * Continue to monitor (10) CKD (chronic kidney disease), stage III: * As above * Not on KATY/ARB, although would avoid in pancreatitis currently (allergy to lisinopril listed. tolerated losartan without difficulty and this may be beneficial for renal protection if she needs additional agent as above) * Monitor labs (11) Hematuria: * Reported * Repeat UA without blood. No further reported (12) DVT prophylaxis: * SCDs. * Chemical anticoagulation held for ERCP today Dispo; ERCP this afternoon with GI Admission and Anticipated Discharge Date Admission Date: July 08, 2020 Subjective Patient evaluated this morning. No further abdominal pain, nausea or vomiting. Denies fever, chills, headache, blurred vision, chest pain, shortness of breath, cough, sputum production, constipation, dysuria or change in bowels. Plans for ERCP this afternoon. Review of Systems Review of Systems: All systems reviewed & are unremarkable except as noted in HPI & below Physical Exam Constitutional: WD/WN, vitals as above Eyes: EOM intact bilaterally; sclerae not anicteric ENMT: Ears: + hearing impairment Neck: normal visual inspection Respiratory: normal respiratory effort and able to speak in complete sentences; no respiratory distress and no labored breathing Auscultation: + diminished lung sounds and + crackles (bibasilar); no rales, no rhonchi and no wheezes Cardiovascular: RRR, no murmur, no edema Gastrointestinal (Abdomen): Inspection/Auscultation: abdomen normal to inspection; abdomen not distended Percussion/Palpation: abdomen soft; abdomen nontender and no hepatosplenomegaly Musculoskeletal: Extremities: no cyanosis Gait: normal gait Skin: no rashes, warm and dry Neurologic: PERRL, EOMI, accommodation nl, no face palsy, no dysarthria Psychiatric: A+Ox3, euthymic affect Lymphatic: no cervical or axillary lymphadenopathy Results & Data Results & Data ([facility]) Vital Signs (Past 12 Hours) Vital Signs Temp 37.3 C 07/10/20 14:35 Pulse 72 07/10/20 15:08 Resp 18 07/10/20 14:35 BP 179/93 H 07/10/20 14:35 Pulse Ox 93 07/10/20 14:35 Intake & Output 07/09/20 07/10/20 07/10/20 18:59 06:59 18:59 Intake Total 1854.167 / 4234.167 2380 / 4234.167 1300 / 1300 Output Total 500 / 500 600 / 600 Balance 1354.167 / 3734.167 2380 / 3734.167 700 / 700 Weight 81.2 kg 81.2 kg Intake: IV 1854.167 / 3854.167 1999 / 3854.167 1300 / 1300 Lr 1,000 ml @ 125 mls/hr IV . 1854.167 / 3854.167 1999 / 3854.167 1000 / 1000 Q8H BONI Rx#:[id number] MAGNESIUM SULFATE / D5W 1 gm In 100 / 100 100 ml @ 50 mls/hr IV Q2H BONI Rx#:[id number] K RIDER / WTR 10 meq In 100 ml 200 / 200 @ 100 mls/hr IV Q1H BONI Rx#: [id number] Oral 380 / 380 Output: Urine 500 / 500 600 / 600 Other: Other Intake Source NPO npo # Unmeasured Voids 1 Laboratory Results 07/10/20 07/10/20 07/10/20 Range/Units Unknown Unknown 12:59 WBC (4.8-10.8) K/uL RBC (4.2-5.4) M/uL Hgb (12.0-16.0) g/dL Hct (37-47) % MCV (80-100) fL MCH (25-34) pg MCHC (32-36) g/dL RDW Std Deviation (36.4-46.3) fL RDW Coeff of Xena (11.5-14.5) % Plt Count (130-400) K/uL MPV (7.4-10.4) fL Sodium (136-145) mmol/L Potassium (3.5-5.1) mmol/L Chloride (98-107) mmol/L Carbon Dioxide (21-32) mmol/L Anion Gap (3-11) BUN (7-18) mg/dl Creatinine (0.6-1.2) mg/dl Est Cr Clr Drug Dosing ml/min Est GFR ( Amer) Est GFR (Non-Af Amer) BUN/Creatinine Ratio (10-20) Glucose (70-99) mg/dl POC Glucose (70-99) mg/dl Calcium (8.5-10.1) mg/dl Magnesium (1.8-2.4) mg/dl Total Bilirubin (0.2-1) mg/dl AST (15-37) U/L ALT (12-78) U/L Alkaline Phosphatase (45-117) U/L Total Protein (6.4-8.2) gm/dl Albumin (3.4-5.0) gm/dl Globulin (2.5-4.0) gm/dl Albumin/Globulin Ratio (0.9-2) Lipase (73-393) U/L Urine Color Yellow Urine Appearance Clear (Clear) Urine pH >= 9.0 H (4.5-7.5) Ur Specific [place] 1.010 (1.000-1.030) Urine Protein Negative (Negative) Urine Glucose (UA) Negative (Negative) Urine Ketones Negative (Negative) Urine Blood Negative (Negative) Urine Nitrite Negative (Negative) Urine Bilirubin Negative (Negative) Urine Urobilinogen Negative (Negative) Ur Leukocyte Esterase Negative (Negative) [facility], RNA, NAAT NEGATIVE (NEGATIVE) 07/10/20 07/10/20 07/10/20 Range/Units 11:24 07:25 06:33 WBC (4.8-10.8) K/uL RBC (4.2-5.4) M/uL Hgb (12.0-16.0) g/dL Hct (37-47) % MCV (80-100) fL MCH (25-34) pg MCHC (32-36) g/dL RDW Std Deviation (36.4-46.3) fL RDW Coeff of Xena (11.5-14.5) % Plt Count (130-400) K/uL MPV (7.4-10.4) fL Sodium (136-145) mmol/L Potassium (3.5-5.1) mmol/L Chloride (98-107) mmol/L Carbon Dioxide (21-32) mmol/L Anion Gap (3-11) BUN (7-18) mg/dl Creatinine (0.6-1.2) mg/dl Est Cr Clr Drug Dosing ml/min Est GFR ( Amer) Est GFR (Non-Af Amer) BUN/Creatinine Ratio (10-20) Glucose (70-99) mg/dl POC Glucose 127 H 142 H (70-99) mg/dl Calcium (8.5-10.1) mg/dl Magnesium 1.6 L (1.8-2.4) mg/dl Total Bilirubin (0.2-1) mg/dl AST (15-37) U/L ALT (12-78) U/L Alkaline Phosphatase (45-117) U/L Total Protein (6.4-8.2) gm/dl Albumin (3.4-5.0) gm/dl Globulin (2.5-4.0) gm/dl Albumin/Globulin Ratio (0.9-2) Lipase (73-393) U/L Urine Color Urine Appearance (Clear) Urine pH (4.5-7.5) Ur Specific [place] (1.000-1.030) Urine Protein (Negative) Urine Glucose (UA) (Negative) Urine Ketones (Negative) Urine Blood (Negative) Urine Nitrite (Negative) Urine Bilirubin (Negative) Urine Urobilinogen (Negative) Ur Leukocyte Esterase (Negative) COVID-19 Eval Order SARS-CoV-2, RNA, NAAT (NEGATIVE) 07/10/20 07/10/20 07/09/20 Range/Units 06:33 06:33 20:01 WBC 11.61 H (4.8-10.8) K/uL RBC 4.18 L (4.2-5.4) M/uL Hgb 12.8 (12.0-16.0) g/dL Hct 38.2 (37-47) % MCV 91.4 (80-100) fL MCH 30.6 (25-34) pg MCHC 33.5 (32-36) g/dL RDW Std Deviation 47.5 H (36.4-46.3) fL RDW Coeff of Xena 14.3 (11.5-14.5) % Plt Count 246 (130-400) K/uL MPV 10.7 H (7.4-10.4) fL Sodium 139 (136-145) mmol/L Potassium 3.3 L (3.5-5.1) mmol/L Chloride 105 (98-107) mmol/L Carbon Dioxide 27 (21-32) mmol/L Anion Gap 7.0 (3-11) BUN 11 (7-18) mg/dl Creatinine 0.96 (0.6-1.2) mg/dl Est Cr Clr Drug Dosing 45.8 ml/min Est GFR ( Amer) 63.4 Est GFR (Non-Af Amer) 54.7 BUN/Creatinine Ratio 11.3 (10-20) Glucose 135 H (70-99) mg/dl POC Glucose 223 H (70-99) mg/dl Calcium 8.8 (8.5-10.1) mg/dl Magnesium (1.8-2.4) mg/dl Total Bilirubin 2.2 H (0.2-1) mg/dl AST 160 H (15-37) U/L ALT 179 H (12-78) U/L Alkaline Phosphatase 142 H (45-117) U/L Total Protein 6.9 (6.4-8.2) gm/dl Albumin 2.9 L (3.4-5.0) gm/dl Globulin 4.0 (2.5-4.0) gm/dl Albumin/Globulin Ratio 0.7 L (0.9-2) Lipase 182 (73-393) U/L Urine Color Urine Appearance (Clear) Urine pH (4.5-7.5) Ur Specific [place] (1.000-1.030) Urine Protein (Negative) Urine Glucose (UA) (Negative) Urine Ketones (Negative) Urine Blood (Negative) Urine Nitrite (Negative) Urine Bilirubin (Negative) Urine Urobilinogen (Negative) Ur Leukocyte Esterase (Negative) COVID-19 Eval Order SARS-CoV-2, RNA, NAAT (NEGATIVE) 07/09/20 Range/Units 16:15 WBC (4.8-10.8) K/uL RBC (4.2-5.4) M/uL Hgb (12.0-16.0) g/dL Hct (37-47) % MCV (80-100) fL MCH (25-34) pg MCHC (32-36) g/dL RDW Std Deviation (36.4-46.3) fL RDW Coeff of Xena (11.5-14.5) % Plt Count (130-400) K/uL MPV (7.4-10.4) fL Sodium (136-145) mmol/L Potassium (3.5-5.1) mmol/L Chloride (98-107) mmol/L Carbon Dioxide (21-32) mmol/L Anion Gap (3-11) BUN (7-18) mg/dl Creatinine (0.6-1.2) mg/dl Est Cr Clr Drug Dosing ml/min Est GFR ( Amer) Est GFR (Non-Af Amer) BUN/Creatinine Ratio (10-20) Glucose (70-99) mg/dl POC Glucose 139 H (70-99) mg/dl Calcium (8.5-10.1) mg/dl Magnesium (1.8-2.4) mg/dl Total Bilirubin (0.2-1) mg/dl AST (15-37) U/L ALT (12-78) U/L Alkaline Phosphatase (45-117) U/L Total Protein (6.4-8.2) gm/dl Albumin (3.4-5.0) gm/dl Globulin (2.5-4.0) gm/dl Albumin/Globulin Ratio (0.9-2) Lipase (73-393) U/L Urine Color Urine Appearance (Clear) Urine pH (4.5-7.5) Ur Specific [place] (1.000-1.030) Urine Protein (Negative) Urine Glucose (UA) (Negative) Urine Ketones (Negative) Urine Blood (Negative) Urine Nitrite (Negative) Urine Bilirubin (Negative) Urine Urobilinogen (Negative) Ur Leukocyte Esterase (Negative) COVID-19 Eval Order SARS-CoV-2, RNA, NAAT (NEGATIVE) Diagnostic Findings CXR IMPRESSION: Trace bilateral pleural effusions and a new right lower lobe hazy airspace opacity. This could represent a developing pneumonia. PG Care Time/CCT Total # of Minutes Spent Total Time Spent with Patient: Total time spent is greater than 50% in coordination of care (as documented) at patient's floor/unit and/or counseling patient: Coding Level of Care Code 30670 Subseq Hosp Care Lvl 3 Diagnoses Choledocholithiasis K80.50 Acute pancreatitis K85.90 Gastritis K29.70 Chronic reflux esophagitis K21.0 Diabetes E11.9 Hypertension I10 Metatarsalgia of both feet M77.41; M77.42 Sensorineural hearing loss (SNHL) H90.5 CHRISTOPHER (acute kidney injury) N17.9 CKD (chronic kidney disease), stage III N18.3 Hematuria R31.9 DVT prophylaxis Z29.9
[2020-07-10] MEDS ORDERED: LOSARTAN POTASSIUM 25 MG TAB PO ONE (11:36)
[2020-07-10] MEDS ORDERED: IOVERSOL 50ml IV ONE (11:50)
[2020-07-10] MEDS ORDERED: HydrALAZINE HCL 20 MG/ML VIAL IV ONE ×2 (13:10→15:40)
[2020-07-10 13:13] LABS: Appearance Urine Clear (Clear); Bilirubin Urine Negative (Negative); Blood Urine Negative (Negative); Color Urine Yellow; Glucose Urine UA Negative (Negative); Ketones Urine Negative (Negative); Leukocyte Esterase Urine Negative (Negative); Nitrite Urine Negative (Negative); Protein Urine Negative (Negative); Urobilinogen Urine Negative (Negative); pH Urine >= 9.0 (4.5-7.5)
[2020-07-10] MEDS ORDERED: ONDANSETRON INJ 2 MG/ML 2 ML VIAL IV PRN (14:19)
[2020-07-10] MEDS ORDERED: ATROPINE SULFATE 0.1 MG/ML 10ML SYR IV PRN (14:19)
[2020-07-10] MEDS ORDERED: fentaNYL citrate 100 MCG/2 ML VIAL IV PRN (14:19)
[2020-07-10] MEDS ORDERED: ePHEDrine sulfate 50 MG/ML AMP IV PRN (14:19)
--- NOTE | 2020-07-10 14:21 | Anesthesiology Consultation ---
Date of Service July 10, 2020 Assessment & Plan (1) Encounter for pre-operative examination: Chart Review Chart Review: Acceptable Risk for Surgery and Patient NOT seen in Pre Admission Testing Consults Requested none History Surgery Operation Date: 07/10/20 07:00 Proposed Procedures p Endoscopic Retrograde Cholangiopancreatogram - Rick Baumann MD Height/Weight Height: 5 ft 4 in Weight: 81.2 kg Allergies Allergy/AdvReac Type Severity Reaction Status Date / Time bee venom protein (honey bee) Allergy Intermediate HIVES Verified 07/08/20 13:02 Sulfa (Sulfonamide Allergy Unknown . Verified 07/08/20 13:02 Antibiotics) lisinopril Allergy COUGH Verified 07/08/20 13:02 Medications Home Medications Medication Instructions Recorded Confirmed Last Taken blood sugar diagnostic See Rx Instructions .ROUTE 08/11/19 07/08/20 07/08/20 .COMPLEX #100 strip atenolol 25 mg tablet 25 mg PO DAILY #30 tab 05/08/20 07/08/20 07/08/20 triamcinolone acetonide 0.1 % 1 appln TOP BID PRN #15 gm 05/08/20 07/08/20 07/08/20 topical cream amlodipine 5 mg tablet 5 mg PO DAILY #90 tab 06/21/20 07/08/20 07/08/20 ergocalciferol (vitamin D2) 10 mcg PO DAILY 07/08/20 07/08/20 07/08/20 [Vitamin D2] metformin 500 mg PO DAILY 07/08/20 07/08/20 07/08/20 Active Medications Generic Name Dose Route Start Last Admin Trade Name Freq PRN Reason Stop Dose Admin Acetaminophen 650 mg 07/09/20 18:06 07/09/20 18:10 Acetaminophen 325 Mg Tab PO 08/08/20 18:05 650 mg Q4H PRN Administration Headache or Pain Amlodipine Besylate 5 mg 07/10/20 09:00 07/10/20 08:39 Amlodipine Besylate 5 Mg Tab PO 08/09/20 08:59 5 mg QAM BONI Administration Atenolol 25 mg 07/10/20 09:00 07/10/20 08:38 Atenolol 25 Mg Tablet PO 08/09/20 08:59 25 mg QAM BONI Administration Famotidine 20 mg/ Syringe 5 mls @ 2.5 mls/min 07/09/20 09:00 07/10/20 10:06 IV 08/08/20 08:59 2.5 mls/min DAILY BONI Administration Insulin Aspart 0 units 07/08/20 17:40 07/10/20 11:31 Insulin Aspart 100 Units/Ml 3 Ml Pen SC 08/07/20 17:39 Not Given ACHS BONI Past Medical History Medical History Acid reflux Acid reflux disease Breast cancer, right breast Chronic reflux esophagitis Diabetes Hyperlipidemia Hypertension Sensorineural hearing loss (SNHL) Exercise / Class Metabolic Activity II 4-5 Yardwork/Stairs/Walk up hill Past Family History Family History Mother , 68yo; Stroke Hypertension Father , at 52yo; Heart disease Smoker Sister Hypertension COPD (chronic obstructive pulmonary disease) CHF (congestive heart failure) Obesity Sister Diabetes 1.5, managed as type 1 Hypertension Paget's disease Son Myocardial infarction History of heart artery stent Tongue cancer Lyme disease Bipolar affect, depressed Son Brain cancer Daughter Leukemia Cervical cancer Denies family history of Ovarian cancer Prostate cancer Breast cancer Colorectal cancer Past Surgical History Surgical History H/O right breast biopsy 20 years ago - benign H/O total hysterectomy with bilateral salpingo-oophorectomy (BSO) History of appendectomy History of cholecystectomy Hx of cataract surgery Only right eye Status post excisional biopsy Bilateral excisional biopsies - benign Status post right breast lumpectomy 2017 and then 2018 for a recurrence SLN biopsy as well Past Anesthesia History No Hx of Anesthesia Complications and No Family Hx of Anesthesia Complications Social History Smoking Status: Never smoker Do You Dip or Chew Tobacco: No Hx Alcohol Use: No Hx Substance Use: No substance use type: does not use Physical Exam Vital Signs Last Vital Signs Temp 37.0 C 07/10/20 11:08 Pulse 60 07/10/20 13:02 Resp 19 07/10/20 11:08 BP 167/70 H 07/10/20 13:02 Pulse Ox 93 07/10/20 11:08 Testing Laboratory Results 07/10/20 06:33 07/10/20 06:33 Hemoglobin A1c 6.4 % (4.5-5.6) H 07/09/20 05:13 Urine Color Yellow 07/10/20 12:59 Urine Appearance Clear (Clear) 07/10/20 12:59 Urine pH >= 9.0 (4.5-7.5) H 07/10/20 12:59 Ur Specific [place] 1.010 (1.000-1.030) 07/10/20 12:59 Urine Protein Negative (Negative) 07/10/20 12:59 Urine Glucose (UA) Negative (Negative) 07/10/20 12:59 Urine Ketones Negative (Negative) 07/10/20 12:59 Urine Nitrite Negative (Negative) 07/10/20 12:59 Ur Leukocyte Esterase Negative (Negative) 07/10/20 12:59 Urine WBC (Auto) 0 /hpf (0-5) 07/08/20 12:15 Urine RBC (Auto) 0-4 /hpf (0-4) 07/08/20 12:15 U Hyaline Cast (Auto) 0 /lpf (0-5) 07/08/20 12:15 U Epithel Cells (Auto) 10-20 /lpf (0-5) H 07/08/20 12:15 Urine Bacteria (Auto) Negative (Negative) 07/08/20 12:15 07/10/20 07/10/20 11:24 07:25 POC Glucose 127 H 142 H Electrocardiogram Date: 07/08/20 Findings: + NSR @ nonspecific st changes.
--- NOTE | 2020-07-10 14:28 | History & Physical Bridge Note ---
Date of Service July 10, 2020 History & Physical Bridge Note I have examined the patient, reviewed the History & Physical and in the interval since the performance of the History & Physical I have noted the following changes of clinical significance: no changes noted
[2020-07-10] MEDS ORDERED: PROPOFOL IV EMULSION 10 MG/ML 20 ML VIAL IV ONE ×2 (14:35→16:49)
[2020-07-10] MEDS ORDERED: LIDOCAINE HCL 2% 2 ML VIAL/AMP(20MG/ML) INFIL ONE (14:35)
[2020-07-10] MEDS ORDERED: ONDANSETRON INJ 2 MG/ML 2 ML VIAL ONE (14:35)
[2020-07-10] MEDS ORDERED: fentaNYL citrate 100 MCG/2 ML VIAL ONE (14:36)
[2020-07-10] MEDS ORDERED: INDOMETHACIN 50 MG SUPP PR ONE (14:57)
--- NOTE | 2020-07-10 15:40 | Operative Report ---
Post Operative Report Pre & Post Diagnosis Operation Date: 07/10/20 07:00 Pre-Op Diagnosis: (1) Epigastric abdominal pain; (2) Acute pancreatitis; (3) Choledocholithiasis Post-Op Diagnosis: (1) Epigastric abdominal pain; (2) Acute pancreatitis; (3) Choledocholithiasis I identified the patient and participated in the time-out.: Yes Procedure Operation Date: 07/10/20 07:00 Actual Procedures p Endoscopic Retrograde Cholangiopancreatogram(Not Applicable) - Rick Baumann MD Surgeon Rick Baumann MD Detention Deputy None Estimated Blood Loss 0 Findings See Below (CBD stones removed) Specimens None Description of Procedure ERCP I attest to the content of the Intraoperative Record and any orders documented therein. Any exceptions are noted below.
--- NOTE | 2020-07-10 15:57 | Fluoroscopy Report ---
[place] ERCP biliary ductal HISTORY: 85 years-old Female ERCP COMPARISON: MRCP and CT abdomen and pelvis 07/08/2020 TECHNIQUE: 10 spot fluoroscopic images of the right upper quadrant abdomen were obtained utilizing 27 .3 seconds fluoroscopy time FINDINGS: Endoscope is noted within the duodenum. Cholecystectomy. Cannulation of the common bile duct with ret rograde injection of contrast. Intrahepatic and extrahepatic biliary ductal dilation redemonstrated. Subsequent images demonstrate balloon sweep of the common bile duct with placement of a common bile d uct stent which appears to be in satisfactory positioning. Contrast is noted extending into the duode num. No extravasation or definite residual common bile duct filling defects. IMPRESSION: Fluoroscopic assistance as above. Please see procedural report for further details. ACT 112: Negative or not required by law. The above report was generated using voice recognition software. It may contain grammatical, syntax o r spelling errors. Electronically signed by: Tomas Escalante M.D. 07/10/2020 3:55 PM
--- NOTE | 2020-07-10 16:13 | GI REPORT ---
Patient Name: Amparo Cedillo Procedure Date: 07/10/2020 2:31 PM Date of : 1935 Admit Type: Inpatient Age: 85 Gender: Female Attending MD: Rick Baumann MD Procedure: ERCP Providers: Rick Baumann MD Referring MD: Geovani Cruz Indications: Abnormal MRCP, For therapy of bile duct stone(s), Gallstone associated acute pancreatitis Medicines: General Anesthesia Complications: No immediate complications. Estimated Blood Loss: Estimated blood loss: none. Procedure: Pre-Anesthesia Assessment: - Prior to the procedure, a History and Physical was performed, and patient medications, allergies and sensitivities were reviewed. The patient's tolerance of previous anesthesia was reviewed. - The risks and benefits of the procedure and the sedation options and risks were discussed with the patient. All questions were answered and informed consent was obtained. - Patient identification and proposed procedure were verified prior to the procedure by the physician and the nurse. The procedure was verified in the procedure room. - Pre-procedure physical examination revealed no contraindications to sedation. After obtaining informed consent, the scope was passed under direct vision. Throughout the procedure, the patient's blood pressure, pulse, and oxygen saturations were monitored continuously. The scope was introduced through the mouth, and advanced to the duodenum and used to inject contrast into the bile duct. The ERCP was accomplished without difficulty. The patient tolerated the procedure well. Findings: A dobby loom fixer film of the abdomen was obtained. Surgical clips, consistent with a previous cholecystectomy, were seen in the area of the right upper quadrant of the abdomen. The esophagus was successfully intubated under direct vision. The scope was advanced to a normal major papilla in the descending duodenum without detailed examination of the pharynx, larynx and associated structures, and upper GI tract. The upper GI tract was grossly normal. A 0.035 inch straight standard wire was passed into the biliary tree. The Fusion OMNI sphincterotome was passed over the guidewire and the bile duct was then deeply cannulated. Contrast was injected. I personally interpreted the bile duct images. Ductal flow of contrast was adequate. Image quality was adequate. Contrast extended to the main bile duct. The main bile duct was dilated. The largest diameter was 10 mm. The middle third of the main bile duct contained one stone. Biliary sphincterotomy was made with a monofilament traction (standard) sphincterotome using ERBE electrocautery. There was no post-sphincterotomy bleeding. Bile duct orifice was successfully dilated with an 8 mm balloon dilator. The biliary tree was swept with a 15 mm balloon starting at the bifurcation. Sludge was swept from the duct. A few stones were removed. No stones remained. In viw of excessive sludge, one 7 Fr by 4 cm plastic biliary stent with a single external pigtail and a single internal pigtail was placed into the common bile duct. Bile flowed through the stent. The stent was in good position. Indomethacin 100 mg was given via suppository to decrease the risk of post-ERCP pancreatitis (PEP). PD was not cannulated. Impression: - Choledocholithiasis was found. Complete removal was accomplished by biliary sphincterotomy, sphincteroplasty and balloon extraction. - One plastic biliary stent was placed into the common bile duct. Recommendation: - Return patient to hospital [facility] for ongoing care. - Repeat ERCP in 4-6 weeks to remove stent. Rick Baumann MD 07/10/2020 4:13:24 PM This report has been signed electronically. Note Initiated On: 07/10/2020 2:31 PM Number of Addenda: 0 I attest to the content of the Intraoperative Record and orders documented therein, exceptions below {[id number]}
--- NOTE | 2020-07-10 16:35 | Anesthesiology Progress Note ---
Date of Service July 10, 2020 Anesthesia Post Procedure Vital Signs Vital Signs: Temp Pulse Pulse Pulse Resp BP BP 07/10/20 16:15 58 L 14 159/61 H 07/10/20 16:05 56 L 18 159/62 H 07/10/20 15:55 57 L 19 144/62 H 07/10/20 15:49 36.8 C 61 20 148/59 H 07/10/20 15:08 72 07/10/20 14:35 37.3 C 65 18 179/93 H 07/10/20 13:02 60 167/70 H 07/10/20 11:35 69 190/76 H 07/10/20 11:08 37.0 C 63 19 172/73 H 07/10/20 10:04 198/71 H 07/10/20 08:00 79 07/10/20 07:28 36.7 C 65 19 204/79 H 180/80 H 07/10/20 03:12 176/91 H 07/10/20 02:33 36.8 C 74 20 07/09/20 23:26 37.1 C 58 L 18 179/58 H 07/09/20 22:59 55 L 07/09/20 20:00 66 07/09/20 18:47 36.7 C 69 19 150/58 H Pulse Ox 07/10/20 16:15 97 07/10/20 16:05 99 07/10/20 15:55 96 07/10/20 15:49 100 07/10/20 15:08 07/10/20 14:35 93 07/10/20 13:02 07/10/20 11:35 07/10/20 11:08 93 07/10/20 10:04 07/10/20 08:00 07/10/20 07:28 94 07/10/20 03:12 07/10/20 02:33 90 07/09/20 23:26 91 07/09/20 22:59 07/09/20 20:00 07/09/20 18:47 91 Pain Intensity Right Upper Abdomen: Pain Intensity: 0 Transfer of Care Handoff Completed per policy Notes Mental Status: alert / awake / arousable and participated in evaluation Patient Amnestic to Procedure: Yes Nausea / Vomiting: adequately controlled Pain: adequately controlled Airway Patency, RR, SpO2: stable & adequate BP & HR: stable & adequate Hydration State: stable & adequate Anesthetic Complications: no major complications apparent and Pt Satisfied with anesthetic care
[2020-07-10] MEDS ORDERED: ePHEDrine sulfate 50 MG/ML AMP ONE (16:49)
[2020-07-11 06:35] LABS: Hematocrit (blood only) 36.2 % (37-47); Hemoglobin 12.1 g/dL (12.0-16.0); Mean Corpuscular Hemoglobin 30.5 pg (25-34); Mean Corpuscular Hgb Conc 33.4 g/dL (32-36); Mean Corpuscular Volume 91.2 fL (80-100); Mean Platelet Volume 10.4 fL (7.4-10.4); Platelet Count 239 K/uL (130-400); RDW Coefficient of Variation 14.1 % (11.5-14.5); Red Blood Count 3.97 M/uL (4.2-5.4)
[2020-07-11 07:12] LABS: BUN Creatinine Ratio 18.2 (10-20); Calcium 8.4 mg/dl (8.5-10.1); Creatinine Clr Calc Pharmacy 54.2 ml/min; Est GFR (African American) 77.8; Est GFR (Non-African American) 67.2; Magnesium 2.2 mg/dl (1.8-2.4); Potassium 3.2 mmol/L (3.5-5.1)
[2020-07-11] MEDS: INSULIN ASPART 100 UNITS/ML 3 ML PEN SC SCH ×2 (08:04→12:47)
[2020-07-11] MEDS: ATENOLOL 25 MG TABLET PO SCH (08:06)
[2020-07-11] MEDS: AMLODIPINE BESYLATE 5 MG TAB PO SCH (08:06)
[2020-07-11] MEDS: FAMOTIDINE 20 MG in SYRINGE 3 ML IV SCH (08:07)
[2020-07-11] MEDS ORDERED: POTASSIUM CHLORIDE 20 MEQ TABCR PO STA (08:10)
--- NOTE | 2020-07-11 08:22 | Gastroenterology Progress Note ---
Date of Service July 11, 2020 Assessment & Plan (1) Choledocholithiasis: 85 yo female s/p CCY admitted with acute pancreatitis, with MRCP noting choledocholithiasis. ERCP yesterday with biliary stone removed and CBD stent placed. Today abd pain is resolved. Labs reviewed, tbili 4 -> 2.2->1.2, LFTs trending down, WBC 16 ->11->8.4, lipase has normalized, K 3.2. Hypertension noted. - Diet as tolerated - Please monitor and optimize BP - Please monitor and correct electrolytes - Pt will need repeat ERCP in 4-6 weeks for stent removal; our office will arrange - GI will sign off, please call with questions. Please see addendum below with additional recommendation from my supervising physician. Admission and Anticipated Discharge Date Admission Date: July 08, 2020 Supervising Physician Co-Signing Physician Notes I performed a history and physical examination of the patient today, including specifically on physical exam - soft abdomen. I have discussed the patient's management with the advanced practitioner. Please refer to the nurse practitioner's note for the documented findings and plan of care. LFTs improved. Recall GI if needed. Subjective Pt seen and examined. Abd pain is resolved, tolerated full breakfast. Denies n/v, chest pain, dyspnea, fever. LFTs, tbili trending down. Physical Exam Constitutional: WD/WN, vitals as above Eyes: + anicteric sclerae Respiratory: normal respiratory effort Gastrointestinal (Abdomen): Inspection/Auscultation: abdomen normal to inspection; abdomen not distended Percussion/Palpation: abdomen soft; abdomen nontender Skin: no rashes, warm and dry Psychiatric: A+Ox3, euthymic affect Results & Data ([facility]) Vital Signs (Past 12 Hours) Vital Signs Temp Pulse Pulse Resp BP Pulse Ox 07/11/20 07:16 36.8 C 58 L 18 175/62 H 93 07/11/20 04:33 36.7 C 51 L 18 153/66 H 94 07/10/20 23:34 36.6 C 52 L 18 136/62 92 07/10/20 23:27 65 Laboratory Results 07/11/20 07/11/20 07/11/20 Range/Units 07:18 06:16 06:11 WBC (4.8-10.8) K/uL RBC (4.2-5.4) M/uL Hgb (12.0-16.0) g/dL Hct (37-47) % MCV (80-100) fL MCH (25-34) pg MCHC (32-36) g/dL RDW Std Deviation (36.4-46.3) fL RDW Coeff of Xena (11.5-14.5) % Plt Count (130-400) K/uL MPV (7.4-10.4) fL Sodium 139 (136-145) mmol/L Potassium 3.2 L (3.5-5.1) mmol/L Chloride 107 (98-107) mmol/L Carbon Dioxide 25 (21-32) mmol/L Anion Gap 7.0 (3-11) BUN 15 (7-18) mg/dl Creatinine 0.81 (0.6-1.2) mg/dl Est Cr Clr Drug Dosing 54.2 ml/min Est GFR ( Amer) 77.8 Est GFR (Non-Af Amer) 67.2 BUN/Creatinine Ratio 18.2 (10-20) Glucose 119 H (70-99) mg/dl POC Glucose 126 H (70-99) mg/dl Calcium 8.4 L (8.5-10.1) mg/dl Magnesium 2.2 (1.8-2.4) mg/dl Total Bilirubin 1.2 H (0.2-1) mg/dl Direct Bilirubin 0.6 H (0-0.2) mg/dl AST 77 H (15-37) U/L ALT 112 H (12-78) U/L Alkaline Phosphatase 130 H (45-117) U/L Total Protein 6.3 L (6.4-8.2) gm/dl Albumin 2.5 L (3.4-5.0) gm/dl Urine Color Urine Appearance (Clear) Urine pH (4.5-7.5) Ur Specific Kimberly (1.000-1.030) Urine Protein (Negative) Urine Glucose (UA) (Negative) Urine Ketones (Negative) Urine Blood (Negative) Urine Nitrite (Negative) Urine Bilirubin (Negative) Urine Urobilinogen (Negative) Ur Leukocyte Esterase (Negative) COVID-19 Eval Order SARS-CoV-2, RNA, NAAT (NEGATIVE) 07/11/20 07/10/20 07/10/20 Range/Units 06:11 Unknown Unknown WBC 8.40 (4.8-10.8) K/uL RBC 3.97 L (4.2-5.4) M/uL Hgb 12.1 (12.0-16.0) g/dL Hct 36.2 L (37-47) % MCV 91.2 (80-100) fL MCH 30.5 (25-34) pg MCHC 33.4 (32-36) g/dL RDW Std Deviation 47.0 H (36.4-46.3) fL RDW Coeff of Xena 14.1 (11.5-14.5) % Plt Count 239 (130-400) K/uL MPV 10.4 (7.4-10.4) fL Sodium (136-145) mmol/L Potassium (3.5-5.1) mmol/L Chloride (98-107) mmol/L Carbon Dioxide (21-32) mmol/L Anion Gap (3-11) BUN (7-18) mg/dl Creatinine (0.6-1.2) mg/dl Est Cr Clr Drug Dosing ml/min Est GFR ( Amer) Est GFR (Non-Af Amer) BUN/Creatinine Ratio (10-20) Glucose (70-99) mg/dl POC Glucose (70-99) mg/dl Calcium (8.5-10.1) mg/dl Magnesium (1.8-2.4) mg/dl Total Bilirubin (0.2-1) mg/dl Direct Bilirubin (0-0.2) mg/dl AST (15-37) U/L ALT (12-78) U/L Alkaline Phosphatase (45-117) U/L Total Protein (6.4-8.2) gm/dl Albumin (3.4-5.0) gm/dl Urine Color Urine Appearance (Clear) Urine pH (4.5-7.5) Ur Specific Kimberly (1.000-1.030) Urine Protein (Negative) Urine Glucose (UA) (Negative) Urine Ketones (Negative) Urine Blood (Negative) Urine Nitrite (Negative) Urine Bilirubin (Negative) Urine Urobilinogen (Negative) Ur Leukocyte Esterase (Negative) COVID-19 Eval Order Covid19 IDNow atMMAC SARS-CoV-2, RNA, NAAT NEGATIVE (NEGATIVE) 07/10/20 07/10/20 07/10/20 Range/Units 20:13 15:53 12:59 WBC (4.8-10.8) K/uL RBC (4.2-5.4) M/uL Hgb (12.0-16.0) g/dL Hct (37-47) % MCV (80-100) fL MCH (25-34) pg MCHC (32-36) g/dL RDW Std Deviation (36.4-46.3) fL RDW Coeff of Xena (11.5-14.5) % Plt Count (130-400) K/uL MPV (7.4-10.4) fL Sodium (136-145) mmol/L Potassium (3.5-5.1) mmol/L Chloride (98-107) mmol/L Carbon Dioxide (21-32) mmol/L Anion Gap (3-11) BUN (7-18) mg/dl Creatinine (0.6-1.2) mg/dl Est Cr Clr Drug Dosing ml/min Est GFR ( Amer) Est GFR (Non-Af Amer) BUN/Creatinine Ratio (10-20) Glucose (70-99) mg/dl POC Glucose 207 H 133 H (70-99) mg/dl Calcium (8.5-10.1) mg/dl Magnesium (1.8-2.4) mg/dl Total Bilirubin (0.2-1) mg/dl Direct Bilirubin (0-0.2) mg/dl AST (15-37) U/L ALT (12-78) U/L Alkaline Phosphatase (45-117) U/L Total Protein (6.4-8.2) gm/dl Albumin (3.4-5.0) gm/dl Urine Color Yellow Urine Appearance Clear (Clear) Urine pH >= 9.0 H (4.5-7.5) Ur Specific Kimberly 1.010 (1.000-1.030) Urine Protein Negative (Negative) Urine Glucose (UA) Negative (Negative) Urine Ketones Negative (Negative) Urine Blood Negative (Negative) Urine Nitrite Negative (Negative) Urine Bilirubin Negative (Negative) Urine Urobilinogen Negative (Negative) Ur Leukocyte Esterase Negative (Negative) COVID-19 Eval Order SARS-CoV-2, RNA, NAAT (NEGATIVE) 07/10/20 Range/Units 11:24 WBC (4.8-10.8) K/uL RBC (4.2-5.4) M/uL Hgb (12.0-16.0) g/dL Hct (37-47) % MCV (80-100) fL MCH (25-34) pg MCHC (32-36) g/dL RDW Std Deviation (36.4-46.3) fL RDW Coeff of Xena (11.5-14.5) % Plt Count (130-400) K/uL MPV (7.4-10.4) fL Sodium (136-145) mmol/L Potassium (3.5-5.1) mmol/L Chloride (98-107) mmol/L Carbon Dioxide (21-32) mmol/L Anion Gap (3-11) BUN (7-18) mg/dl Creatinine (0.6-1.2) mg/dl Est Cr Clr Drug Dosing ml/min Est GFR ( Amer) Est GFR (Non-Af Amer) BUN/Creatinine Ratio (10-20) Glucose (70-99) mg/dl POC Glucose 127 H (70-99) mg/dl Calcium (8.5-10.1) mg/dl Magnesium (1.8-2.4) mg/dl Total Bilirubin (0.2-1) mg/dl Direct Bilirubin (0-0.2) mg/dl AST (15-37) U/L ALT (12-78) U/L Alkaline Phosphatase (45-117) U/L Total Protein (6.4-8.2) gm/dl Albumin (3.4-5.0) gm/dl Urine Color Urine Appearance (Clear) Urine pH (4.5-7.5) Ur Specific Kimberly (1.000-1.030) Urine Protein (Negative) Urine Glucose (UA) (Negative) Urine Ketones (Negative) Urine Blood (Negative) Urine Nitrite (Negative) Urine Bilirubin (Negative) Urine Urobilinogen (Negative) Ur Leukocyte Esterase (Negative) COVID-19 Eval Order SARS-CoV-2, RNA, NAAT (NEGATIVE)
[2020-07-11 08:53] LABS: Albumin Level 2.5 gm/dl (3.4-5.0); Bilirubin Direct 0.6 mg/dl (0-0.2); Bilirubin,Total 1.2 mg/dl (0.2-1); Total Protein 6.3 gm/dl (6.4-8.2)
--- NOTE | 2020-07-11 09:29 | Hospitalist Progress Note ---
Date of Service July 11, 2020 Assessment & Plan Admission and Anticipated Discharge Date Admission Date: July 08, 2020 Results & Data Results & Data ([facility]) Vital Signs (Past 12 Hours) Vital Signs Temp Pulse Pulse Resp BP Pulse Ox 07/11/20 07:16 36.8 C 58 L 18 175/62 H 93 07/11/20 04:33 36.7 C 51 L 18 153/66 H 94 07/10/20 23:34 36.6 C 52 L 18 136/62 92 07/10/20 23:27 65 PG Care Time/CCT Total # of Minutes Spent Total Time Spent with Patient: Total time spent is greater than 50% in coordination of care (as documented) at patient's floor/unit and/or counseling patient: Coding
--- NOTE | 2020-07-11 11:53 | Discharge Summary ---
Date of Service July 11, 2020 Admission HPI Per Admitting Provider Amparo Cedillo is an 85-year-old female who presents to the ER with sudden onset epigastric pain that started at 6 AM this morning. Severity initially is 10/10, currently 1/10. Radiates through to her back. Worse on palpation. Associated nausea and vomiting. No change in her bowels, no melena, bright red blood in stool. She reports a questionable prior episode of pancreatitis 30 years ago - questionable since she tells me this was treated with Maalox. Prior cholecystectomy age [age] years old. In the ER she was given NSS 500 ml bolus, morphine 4 mg IV, Toradol 15 mg IV, Zofran 4 mg IV. On admission she was feeling much improved to the point where she was starting to feel that she may want something to eat. Admission Exam Per Admitting Provider Constitutional: well developed and well nourished; no acute distress Eyes: + anicteric sclerae; normal pupil size ENMT: external ear and nose normal, oropharynx normal Neck: trachea midline, no thyromegaly Respiratory: normal respiratory effort, lungs clear to auscultation Cardiovascular: RRR, no murmur, no edema Gastrointestinal (Abdomen): Inspection/Auscultation: abdomen normal to inspection and normal bowel sounds; abdomen not distended Percussion/Palpation: + abdomen tender (Epigastric, no rebound) and abdomen soft; no guarding and abdomen not rigid Musculoskeletal: no cyanosis or clubbing, extremities motor strength 5/5 Skin: no rashes, warm and dry Neurologic: moves all extremities and awake; not confused Psychiatric: A+Ox3, euthymic affect Genitourinary: no CVA tenderness Principal Diagnosis Choledocholithiasis Discharge Exam Constitutional WD/WN, vitals as above Eyes EOM intact bilaterally; sclerae not anicteric ENMT Ears: + hearing impairment Neck normal visual inspection Respiratory normal respiratory effort, lungs clear to auscultation normal respiratory effort and able to speak in complete sentences; no respiratory distress and no labored breathing Auscultation: + diminished lung sounds; no crackles, no rales, no rhonchi and no wheezes Cardiovascular RRR, no murmur, no edema Gastrointestinal (Abdomen) Inspection/Auscultation: abdomen normal to inspection; abdomen not distended Percussion/Palpation: abdomen soft; abdomen nontender and no hepatosplenomegaly Musculoskeletal Extremities: no cyanosis Gait: normal gait Skin no rashes, warm and dry Neurologic PERRL, EOMI, accommodation nl, no face palsy, no dysarthria Psychiatric A+Ox3, euthymic affect Lymphatic no cervical or axillary lymphadenopathy Discharge Data Allergies Allergy/AdvReac Type Severity Reaction Status Date / Time bee venom protein (honey bee) Allergy Intermediate HIVES Verified 07/10/20 14:47 Sulfa (Sulfonamide Allergy Unknown . Verified 07/10/20 14:47 Antibiotics) lisinopril Allergy COUGH Verified 07/10/20 14:47 Consultations 07/08/20 13:43 ED Decision to Admit Stat 07/08/20 22:16 Consult Gastroenterology Routine Procedures Performed Operation Date: 07/10/20 07:00 Actual Procedures p Endoscopic Retrograde Cholangiopancreatogram(Not Applicable) - Rick Baumann MD Ordered Studies 07/08/20 12:50 CT abd pelvis IV con only Stat CXR 07/08/20 15:17 MR MRCP Stat 07/10/20 10:00 FL ERCP biliary ductal Routine CXR Hospital Course (1) Choledocholithiasis: Initially admitted for severe pancreatitis with Lipase 18977 on admission with imaging concerning for retained stone--> given copious IVF and repeat lipase 182. * Triglycerides wnl at 101. A1c 6.4 * CTAP with moderate intrahepatic and extrahepatic biliary ductal dilation * MRCP with 7 mm filling defects in distal common bile duct suggesting choledocholithiasis * GI consulted * ERCP on 07/[address] Baumann which found choledocholithiasis. Complete removal accomplished by biliary sphincterotomy, sphincteroplasty and balloon extraction. Plastic biliary stent to common bile duct * Bilirubin and LFTs improving -- Tbili 1.2 (from 4), AST 77, ALT 112, ALk phos 130 --> given lab slips for repeat labs in 2 days outpatient * Will need repeat ERCP in 4-6 weeks for stent removal and GI office to arrange (2) Acute pancreatitis: * Lipase 69887 on admission. Given IVF, pain control. Repeat lipase 182 prior to discharge (3) Chronic reflux esophagitis: * As above -- famotidine while inpatient * Can follow up with PCP about initiation of PPI if OTC does not continue to control (4) Diabetes: * Metformin held while inpatient --> blood sugars acceptable on ISS/BSG ACHS. A1c 6.4 * Resumed metformin at discharge (5) Hypertension: * Continued atenolol 25mg PO daily, amlodipine 5mg po daily * BPs remained elevated and patient started on losartan 25mg (as patient with CKD and allergy to lisinopril for renal protection as well) prior to discharge --> BP 163/61. Patient to follow up with PCP for further titration as needed (6) Metatarsalgia of both feet: * Patient under the impression her plantar metatarsal pain is peripheral neuropathy however no symptoms in her toes and pain is reproducible. * Recommend using [id number] metatarsal pads. * Follow up with PCP outpatient (7) Sensorineural hearing loss (SNHL): * Noted (8) CHRISTOPHER (acute kidney injury): * Cr 1.25 on admission. Baseline Cr ~1, eGFR 40-53 since 2018 in system * IVF as above * Cr back to baseline, 0.96 (9) CKD (chronic kidney disease), stage III: * As above * Back to baseline and started and continued losartan at discharge for renal protection * BMP in 2 days outpatient and f/u with PCP (10) Hematuria: * Reported * Repeat UA without blood. No further reported (11) DVT prophylaxis: * SCDs * chemoprophylaxis held for ERCP Hypokalemia -- Potassium 3.2 AM of discharge and was provided 40meq KCl. Patient on HCTZ outpatient and stated she had not previously needed replacement. Now that on losartan, expect K to improve but was also to repeat BMP in 2 days to see if she will need any further supplementation Discharged home with . Total Time Total Time Spent Total Time Spent (In Minutes): 60 Discharge Plan Discharge Items Patient Disposition: Home - Self-Care Reason For Visit: PANCREATITIS Discharge Diagnosis: Choledocholithiasis Condition on Discharge: Fair Activity: Resume your previous activity Non-emergency contact: Primary Care Provider and Nipping Machine Operator Call non-emergency contact if: you have any medication questions, your symptoms worsen and your pain is not controlled Follow-up/Referrals: Annika Salamanca CRNP [Primary Care Provider] - 07/19/20 10:30 am (Please follow up with PABLO Self at [facility] on 07/19/2020 at 10:30 am. Please arrive to the office 15 minutes early for your appointment. If you are unable to keep this appointment, please call the office to reschedule at [phone].) Eladio Yarbrough MD [Physician] - 08/15/20 10:40 am (Please follow up with Dr. Yarbrough at [facility] on Thursday08/15/2020 at 10:40 am. Please arrive to the office 15 minutes early for your appointment. If you are unable to keep this appointment, please call the office to reschedule at [phone].) Diet: Heart Healthy Ambulatory Orders: Basic Metabolic Panel (Routine) Timeframe: 2 Days Location: Determined by Patient Ordered By: Anabelle Verma Hepatic Function (Liver) Panel (Routine) Timeframe: 2 Days Location: Determined by Patient Ordered By: Anabelle Verma Addtl Attending Provider Instructions: You have been hospitalized for acute pancreatitis. Imaging was suspicious for a retained stone and GI was consulted. An ERCP was performed and stone was found and removed and a stent was placed. You will need a repeat ERCP to have this stent removed in the next 4-6 weeks. Please note that complications can include pancreatitis, and if you develop worsening pain, nausea, vomiting, fever or for any other symptoms please return to the emergency department as discussed. You have been provided lab slips to have repeat labs in the next 2 days to ensure resolution of the elevation of your liver function tests, which have been vastly improved from admission and stone removal. Your blood pressure was found to be significantly elevated during your hospitalization. You were started and are to continue to Losartan 25mg by mouth daily and to follow up with your PCP in the next week to monitor your progress since hospitalization and see about possibly increasing your blood pressure medications. It has been a pleasure being a part of the medical team providing for you while you have been in the hospital. Take care! Pending Studies at Discharge: No Stand-Alone Forms: My [facility] Medications and DC Order Prescriptions: New losartan 25 mg Tablet 25 mg PO QAM Qty: 30 RF: 0 Continued blood sugar diagnostic [OneTouch Ultra Blue Test Strip] strip See Rx Instructions .ROUTE .COMPLEX Qty: 100 RF: 4 atenolol 25 mg tablet 25 mg PO DAILY Qty: 30 RF: 5 triamcinolone acetonide 0.1 % cream 1 appln TOP BID PRN (Reason: ECZEMA) Qty: 15 RF: 2 amlodipine 5 mg tablet 5 mg PO DAILY Qty: 90 RF: 3 ergocalciferol (vitamin D2) 1,000 unit Capsule 10 mcg PO DAILY RF: 0 metformin 500 mg tablet extended release 24 hr 500 mg PO DAILY RF: 0 Discharge Orders: Discharge Order (Routine); Ordered 07/11/20 Ordered By: Anabelle Mann/Other Patient Handouts: Managing Type 2 Diabetes Admission Data Admit Date/Time: 07/08/20 15:27 Attending Provider: Geovani Cruz Admit Provider: Pepe Coffey Primary Care Provider: Annika Salamanca Other Providers: Pepe Coffey ; Eladio Yarbrough Other Interventions: Discharge Summary Assessment (RN) Last Done: 07/11/20 13:46 Coding Level of Care Code D/C Day Management >30 mins Diagnoses Choledocholithiasis K80.50 Acute pancreatitis K85.90 Chronic reflux esophagitis K21.0 Diabetes E11.9 Hypertension I10 Metatarsalgia of both feet M77.41; M77.42 Sensorineural hearing loss (SNHL) H90.5 CHRISTOPHER (acute kidney injury) N17.9 CKD (chronic kidney disease), stage III N18.3 Hematuria R31.9 DVT prophylaxis Z29.9
[2020-07-11] MEDS ORDERED: LOSARTAN POTASSIUM 25 MG TAB PO SCH (12:00)
== END 2020-07-11 14:45 | disposition home or self-care (01) | DRG 444 ==
LOC: ED 11:53 → 2S 15:27 → SUATTDRO 15:27 → 2S 16:04 → 2E 07-09 17:40

== ENCOUNTER 2020-09-19 03:00 | Observation (INO) ==
[2020-09-19] MEDS ORDERED: MoRPHine SULFATE 4 MG/ML 1 ML CARP\\VIAL IV STA (03:20)
[2020-09-19] MEDS ORDERED: ONDANSETRON INJ 2 MG/ML 2 ML VIAL IV STA (03:20)
--- NOTE | 2020-09-19 03:28 | Emergency Department Note ---
History of Present Illness General Chief complaint: Abdominal Pain Stated complaint: ABD PAIN Time Seen by Provider: 09/19/20 03:11 History of Present Illness Maximum Pain Intensity: 10 This is an 85-year-old female that presents to the emergency department via private vehicle accompanied by her with complaints of "abdominal pain". The patient notes a history of gallstone pancreatitis with stent placement and this was removed about a week ago. She notes that she was doing well and then around 4 PM this evening she began with abdominal discomfort in the epigastric region. No trauma or injury. She denies any vomiting, diarrhea, constipation, cough, fevers, chills, shortness of breath or chest pain. Current discomfort 08/11. No aggravating or alleviating factors. Home Medications Medication Instructions Recorded Confirmed Type atenolol 25 mg tablet 25 mg PO DAILY #30 tab 05/08/20 09/19/20 Rx triamcinolone acetonide 0.1 % 1 appln TOP BID PRN #15 gm 05/08/20 09/19/20 Rx topical cream amlodipine 5 mg tablet 5 mg PO DAILY #90 tab 06/21/20 09/19/20 Rx metformin 500 mg PO BID 07/08/20 09/19/20 History vit C,E,zinc,copper-pcrfg1i 250 1 cap PO DAILY 07/12/20 09/19/20 History mg-lutein 5 mg-zeaxanthin 1 mg capsule cholecalciferol (vitamin D3) 25 mcg PO DAILY 09/19/20 09/19/20 History [Vitamin D3] Allergies Allergy/AdvReac Type Severity Reaction Status Date / Time bee venom protein (honey bee) Allergy Intermediate HIVES Verified 09/19/20 03:26 Sulfa (Sulfonamide Allergy Unknown . Verified 09/19/20 03:26 Antibiotics) lisinopril Allergy COUGH Verified 09/19/20 03:26 Past Med/Surg History Medical History Acid reflux Acid reflux disease Acute pancreatitis Breast cancer, right breast Chronic reflux esophagitis Diabetes Epigastric abdominal pain Hyperlipidemia Hypertension Hypokalemia Sensorineural hearing loss (SNHL) Surgical History H/O right breast biopsy 20 years ago - benign H/O total hysterectomy with bilateral salpingo-oophorectomy (BSO) History of appendectomy History of cholecystectomy Hx of cataract surgery Only right eye Status post excisional biopsy Bilateral excisional biopsies - benign Status post right breast lumpectomy 2017 and then 2018 for a recurrence SLN biopsy as well Family History Mother , 68yo; Stroke Hypertension Father , at 52yo; Heart disease Smoker Sister Hypertension COPD (chronic obstructive pulmonary disease) CHF (congestive heart failure) Obesity Sister Diabetes 1.5, managed as type 1 Hypertension Paget's disease Son Myocardial infarction History of heart artery stent Tongue cancer Lyme disease Bipolar affect, depressed Son Brain cancer Daughter Leukemia Cervical cancer Denies family history of Ovarian cancer Prostate cancer Breast cancer Colorectal cancer Social History Smoking Status: Never smoker Second Hand Exposure: No; Hx Alcohol Use: No Hx Substance Use: No Preferred Language: Occitan Communication Ability: Effective Visual Impairment: No Limitations Hearing Ability: Normal Biomass Production Manager Required: No Beliefs That Will Affect Care: None marital status: Current Living Situation: Spouse 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 occupational status: 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 Feels Safe at Home: Yes caffeine: Yes (3 cups/day) during the past year weight has: remained stable Dental Care, Regularly: Yes Physical Activity Frequency: Does not Exercise Seatbelt Use: always Sunscreen Use: No Assistive Devices: None Review of Systems A total of 10 systems reviewed and were otherwise negative Physical Exam Vital Signs Vital Signs - 24 hr 09/19/20 03:02 09/19/20 03:48 09/19/20 05:02 Temperature 36.9 C Temperature Source Oral Pulse Rate 73 Pulse Rate [Apical] 66 Respiratory Rate 20 17 Respiratory Effort / Characteristics Non-Labored Spontaneous Respiratory Depth Normal Respiratory Pattern Regular Blood Pressure 193/93 H Blood Pressure [Left Arm] 162/61 H Blood Pressure Mean 126 Blood Pressure Mean [Left Arm] 94 Blood Pressure Position Sitting Pulse Oximetry 97 100 95 Oxygen Delivery Method Room Air Room Air Room Air Sepsis Recent Fever Within 48 Hours No Sepsis New/Unexplained Change in Mental Status No Sepsis Action Taken by Nursing No Action Required 09/19/20 06:00 Temperature Temperature Source Pulse Rate Pulse Rate [Apical] 66 Respiratory Rate 18 Respiratory Effort / Characteristics Respiratory Depth Respiratory Pattern Blood Pressure Blood Pressure [Left Arm] 148/59 H Blood Pressure Mean Blood Pressure Mean [Left Arm] 88 Blood Pressure Position Pulse Oximetry 96 Oxygen Delivery Method Room Air Sepsis Recent Fever Within 48 Hours Sepsis New/Unexplained Change in Mental Status Sepsis Action Taken by Nursing VITAL SIGNS - Vital signs and nursing notes were reviewed. Stable and afebrile. GENERAL - 85-year-old female appearing her stated age who is in no acute distress. Communicates well with provider and answers questions appropriately. SKIN - Without rashes. No meningeal or petechial rash. LUNGS - Chest wall symmetric without accessory muscle use, intercostals retractions, or central cyanosis. Normal vesicular breath sounds CTA B/L. No wheezes, rales, or rhonchi appreciated. CARDIAC - RRR with S1/S2. No murmur, rubs, or gallops appreciated. ABDOMEN - Abdominal contour normal without pulsations or visible masses. BS normoactive all four quadrants. Epigastric/right upper quadrant abdominal tenderness to palpation. No palpable masses, hepatosplenomegaly, or ascites noted. EXTREMITIES - No clubbing or peripheral cyanosis. +5/5 strength noted in UE/LE bilaterally. NEUROLOGIC - Cranial nerves II through XII grossly intact. PSYCH - A&O, and cooperates fully with examiner. Pt is very pleasant and interacts well with examiner. Course Administered Medications Discontinued Medications Piperacillin Sod/Tazobactam Sod (Zosyn) 4.5 gm in 120 mls @ 240 mls/hr IV NOW ONE Stop: 09/19/20 06:02 Last Infusion: 09/19/20 06:26 Dose: 0 mls/hr Documented by: [id number] Admin: 09/19/20 05:56 Dose: 240 mls/hr Documented by: [id number] Ioversol (Ioversol 100ml) 94 ml IV ONCE ONE Stop: 09/19/20 04:45 Last Admin: 09/19/20 04:44 Dose: 94 ml Documented by: [id number] Morphine Sulfate (Morphine Sulfate 4 Mg/Ml 1 Ml Carp\\Vial) 4 mg IV NOW STA Stop: 09/19/20 03:21 Last Admin: 09/19/20 04:04 Dose: 4 mg Documented by: [id number] Ondansetron HCl (Ondansetron Inj 2 Mg/Ml 2 Ml Vial) 4 mg IV NOW STA Stop: 09/19/20 03:21 Last Admin: 09/19/20 04:04 Dose: 4 mg Documented by: [id number] Medical Decision Making Laboratory Data Result diagrams: 09/19/20 04:00 09/19/20 04:00 Lab Results 09/19/20 09/19/20 09/19/20 Range/Units 03:38 04:00 04:00 WBC 16.88 H (4.8-10.8) K/uL RBC 4.41 (4.2-5.4) M/uL Hgb 13.8 (12.0-16.0) g/dL Hct 40.7 (37-47) % MCV 92.3 (80-100) fL MCH 31.3 (25-34) pg MCHC 33.9 (32-36) g/dL RDW Std Deviation 44.4 (36.4-46.3) fL RDW Coeff of [place] 13.2 (11.5-14.5) % Plt Count 318 (130-400) K/uL MPV 10.2 (7.4-10.4) fL Immature Gran % (Auto) 0.3 % Neut % (Auto) 91.6 % Lymph % (Auto) 4.7 % [place] % (Auto) 3.3 % Eos % (Auto) 0.0 % Baso % (Auto) 0.1 % Neut # (Auto) 15.48 H (1.4-6.5) K/uL Lymph # (Auto) 0.79 L (1.2-3.4) K/uL [place] # (Auto) 0.55 (0.11-0.59) K/uL Eos # (Auto) 0.00 (0-0.5) K/uL Baso # (Auto) 0.01 (0-0.2) K/uL Immature Gran # (Auto) 0.05 H (0.00-0.02) K/uL PT 10.8 (9.0-12.0) Seconds INR 1.0 (0.9-1.1) APTT 24.8 (21.0-31.0) Seconds PTT Ratio 0.9 Sodium (136-145) mmol/L Potassium (3.5-5.1) mmol/L Chloride (98-107) mmol/L Carbon Dioxide (21-32) mmol/L Anion Gap (3-11) BUN (7-18) mg/dl Creatinine (0.6-1.2) mg/dl Est Cr Clr Drug Dosing ml/min Est GFR ( Amer) Est GFR (Non-Af Amer) BUN/Creatinine Ratio (10-20) Glucose (70-99) mg/dl Calcium (8.5-10.1) mg/dl Magnesium (1.8-2.4) mg/dl Total Bilirubin (0.2-1) mg/dl AST (15-37) U/L ALT (12-78) U/L Alkaline Phosphatase (45-117) U/L Troponin I (0-0.045) ng/ml Total Protein (6.4-8.2) gm/dl Albumin (3.4-5.0) gm/dl Globulin (2.5-4.0) gm/dl Albumin/Globulin Ratio (0.9-2) Lipase (73-393) U/L Urine Color Dark Yellow Urine Appearance Cloudy A (Clear) Urine pH 8.5 H (4.5-7.5) Ur Specific [place] 1.019 (1.000-1.030) Urine Protein 2+ H (Negative) Urine Glucose (UA) Negative (Negative) Urine Ketones Negative (Negative) Urine Blood Negative (Negative) Urine Nitrite Negative (Negative) Urine Bilirubin Negative (Negative) Urine Urobilinogen Negative (Negative) Ur Leukocyte Esterase Negative (Negative) Urine WBC (Auto) 1-5 (0-5) /hpf Urine RBC (Auto) 0-4 (0-4) /hpf U Hyaline Cast (Auto) 0 (0-5) /lpf U Epithel Cells (Auto) 20-30 H (0-5) /lpf Urine Bacteria (Auto) Negative (Negative) COVID-19 Eval Order SARS-CoV-2, RNA, NAAT (NEGATIVE) 09/19/20 09/19/20 09/19/20 Range/Units 04:00 Unknown Unknown WBC (4.8-10.8) K/uL RBC (4.2-5.4) M/uL Hgb (12.0-16.0) g/dL Hct (37-47) % MCV (80-100) fL MCH (25-34) pg MCHC (32-36) g/dL RDW Std Deviation (36.4-46.3) fL RDW Coeff of [place] (11.5-14.5) % Plt Count (130-400) K/uL MPV (7.4-10.4) fL Immature Gran % (Auto) % Neut % (Auto) % Lymph % (Auto) % [place] % (Auto) % Eos % (Auto) % Baso % (Auto) % Neut # (Auto) (1.4-6.5) K/uL Lymph # (Auto) (1.2-3.4) K/uL [place] # (Auto) (0.11-0.59) K/uL Eos # (Auto) (0-0.5) K/uL Baso # (Auto) (0-0.2) K/uL Immature Gran # (Auto) (0.00-0.02) K/uL PT (9.0-12.0) Seconds INR (0.9-1.1) APTT (21.0-31.0) Seconds PTT Ratio Sodium 136 (136-145) mmol/L Potassium 3.9 (3.5-5.1) mmol/L Chloride 101 (98-107) mmol/L Carbon Dioxide 26 (21-32) mmol/L Anion Gap 9.0 (3-11) BUN 17 (7-18) mg/dl Creatinine 1.17 (0.6-1.2) mg/dl Est Cr Clr Drug Dosing 36.5 ml/min Est GFR ( Amer) 49.9 Est GFR (Non-Af Amer) 43.1 BUN/Creatinine Ratio 14.9 (10-20) Glucose 179 H (70-99) mg/dl Calcium 9.3 (8.5-10.1) mg/dl Magnesium 1.6 L (1.8-2.4) mg/dl Total Bilirubin 2.4 H (0.2-1) mg/dl AST 640 H (15-37) U/L ALT 393 H (12-78) U/L Alkaline Phosphatase 216 H (45-117) U/L Troponin I < 0.015 (0-0.045) ng/ml Total Protein 8.5 H (6.4-8.2) gm/dl Albumin 3.6 (3.4-5.0) gm/dl Globulin 4.9 H (2.5-4.0) gm/dl Albumin/Globulin Ratio 0.7 L (0.9-2) Lipase 133 (73-393) U/L Urine Color Urine Appearance (Clear) Urine pH (4.5-7.5) Ur Specific [place] (1.000-1.030) Urine Protein (Negative) Urine Glucose (UA) (Negative) Urine Ketones (Negative) Urine Blood (Negative) Urine Nitrite (Negative) Urine Bilirubin (Negative) Urine Urobilinogen (Negative) Ur Leukocyte Esterase (Negative) Urine WBC (Auto) (0-5) /hpf Urine RBC (Auto) (0-4) /hpf U Hyaline Cast (Auto) (0-5) /lpf U Epithel Cells (Auto) (0-5) /lpf Urine Bacteria (Auto) (Negative) COVID-19 Eval Order Covid19 [facility]Now [facility] SARS-CoV-2, RNA, NAAT NEGATIVE (NEGATIVE) Imaging Data Radiologist's Impression: ADDENDUM - Added by Jaime Majano MD on 09/19/2020 5:19 AM (-08:00) The first sentence of the report should read as follows: Moderate intrahepatic and extrahepatic biliary ductal dilation seen. There is high density within the lumen of the distal CBD, suggestive of choledocholithiasis The findings were discussed with the health care provider taking care of the patient at 5:19 AM eastern standard time CT ABDOMEN & PELVIS With Contrast: Moderate intrahepatic and extrahepatic revealed a consolidation seen. There is high density seen within the lumen of the distal CBD, suggestive of choledocholithiasis. This can be confirmed on MRCP study. 2.5 cm space occupying lesion seen in the right breast can be correlated with prior surgical history and mammogram. Nodular macro calcifications alsoseen in the right breast Radiologist: Jaime Majano MD Study ready at 05:02 and initial results transmitted at 05:07 Communications: Clear Time Type Notes 09/19/20 05:22 Call From [facility] on 09/19 05:16 (-05:00) [facility] Narrative Patient was seen and evaluated as above in room C7. Review was performed of nursing notes and vital signs. I did review pertinent previous visits and patient history. After obtaining a thorough history and physical examination the above work up was performed. She presents to us today with abdominal pain in the setting of recent gallstone pancreatitis with stent placement that was removed about a week ago. Vital signs stable. She is tender in the upper abdomen. There is leukocytosis 16.88. No anemia. No emergent metabolic disturbance other than there is elevation of T bili at 2.4 as well as interval elevation of AST and ALT. Troponin is negative. Urinalysis does not suggest infection. An EKG was obtained and per my interpretation reveals normal sinus rhythm at rate of 74 bpm. No ectopy or ischemic change. No evidence of ND. QTc 477. CT scan was obtained. Results as above. Concerning for that of choledocholithiasis. With the patient having white blood cell count elevation as well as LFTs and T bili with recent procedure it is felt that covering with antibiotics for possible cholangitis would be reasonable. She is stable at this time. I believe that further evaluation and management in the inpatient setting is warranted. Case discussed with the hospitalist. Please refer to further documentation regarding her stay. An order was placed for continuous cardiac monitoring. The monitor shows a rate of 66 with normal sinus rhythm. I attest that I have personally reviewed the patient medication list. GCS: 15 In the evaluation and treatment of this patient, the following differential diagnoses were considered: ASC, ND, Pneumonia, GERD, Ascending Cholangitis, Cholydocholithiasis, Bowel Obstruction, PE, Amongst Others. Impression & Plan Choledocholithiasis, Abdominal pain, Leukocytosis, Elevated LFTs, Hyperbiliru binemia Discharge Plan Visit Data Chief Complaint: Abdominal Pain Stated Complaint: ABD PAIN ED Provider: Gita Hilton ED Midlevel Provider: Shubham Nichols Discharge Problem: Choledocholithiasis, Abdominal pain, Leukocytosis, Elevated LFTs, Hyperbilirubinemia Patient Disposition: Admitted As Inpatient Condition: Good Forms Stand Alone Forms: My [facility], Virtual Emergency Department, Important Visit Information Prescriptions Prescriptions: No Action atenolol 25 mg tablet 25 mg PO DAILY Qty: 30 RF: 5 triamcinolone acetonide 0.1 % cream 1 appln TOP BID PRN (Reason: ECZEMA) Qty: 15 RF: 2 amlodipine 5 mg tablet 5 mg PO DAILY Qty: 90 RF: 3 Ocuvite Adult 50 Plus 250-5-1 mg capsule 1 cap PO DAILY RF: 0 metformin 500 mg tablet extended release 24 hr 500 mg PO BID RF: 0 cholecalciferol (vitamin D3) [Vitamin D3] 25 mcg (1,000 unit) Tablet 25 mcg PO DAILY RF: 0 Referrals Referrals: Annika Salamanca CRNP [Primary Care Provider] -
[2020-09-19 04:00] LABS: Appearance Urine Cloudy (Clear); Bacteria Urine Automated Negative (Negative); Blood Urine Negative (Negative); Cast Urine Automated 0 /lpf (0-5); Color Urine Dark Yellow; Epithelial Cell Urine Auto 20-30 /lpf (0-5); Glucose Urine UA Negative (Negative); Ketones Urine Negative (Negative); Leukocyte Esterase Urine Negative (Negative); Nitrite Urine Negative (Negative); RBC Urine Automated 0-4 /hpf (0-4); Specific Gravity Urine 1.019 (1.000-1.030); Urobilinogen Urine Negative (Negative); pH Urine 8.5 (4.5-7.5)
[2020-09-19 04:12] LABS: Basophils # (auto) 0.01 K/uL (0-0.2); Basophils % (auto) 0.1 %; Hematocrit (blood only) 40.7 % (37-47); Hemoglobin 13.8 g/dL (12.0-16.0); Immature Granulocytes # (auto) 0.05 K/uL (0.00-0.02); Immature Granulocytes % (auto) 0.3 %; Lymphocytes # (auto) 0.79 K/uL (1.2-3.4); Lymphocytes % (auto) 4.7 %; Mean Corpuscular Hemoglobin 31.3 pg (25-34); Mean Corpuscular Hgb Conc 33.9 g/dL (32-36); Mean Corpuscular Volume 92.3 fL (80-100); Mean Platelet Volume 10.2 fL (7.4-10.4); Monocytes # (auto) 0.55 K/uL (0.11-0.59); Monocytes % (auto) 3.3 %; Neutrophils # (auto) 15.48 K/uL (1.4-6.5); Neutrophils % (auto) 91.6 %; Platelet Count 318 K/uL (130-400); RDW Coefficient of Variation 13.2 % (11.5-14.5); RDW Standard Deviation 44.4 fL (36.4-46.3); Red Blood Count 4.41 M/uL (4.2-5.4); White Blood Count 16.88 K/uL (4.8-10.8)
[2020-09-19 04:21] LABS: Protein Urine 2+ (Negative)
[2020-09-19 04:23] LABS: Bilirubin Urine Negative (Negative); Ictotest Urine Negative (Negative); Sulfosalicylic Acid Urine Positive (Negative)
[2020-09-19 04:26] LABS: Partial Thromboplastin Ratio 0.9; Partial Thromboplastin Time 24.8 Seconds (21.0-31.0); Prothrombin Time 10.8 Seconds (9.0-12.0)
[2020-09-19 04:30] LABS: Chloride 101 mmol/L (98-107); Potassium 3.9 mmol/L (3.5-5.1); Sodium 136 mmol/L (136-145)
[2020-09-19 04:34] LABS: Alanine Aminotransferase 393 U/L (12-78); Albumin Level 3.6 gm/dl (3.4-5.0); Aspartate Aminotransferase 640 U/L (15-37); BUN Creatinine Ratio 14.9 (10-20); Blood Urea Nitrogen 17 mg/dl (7-18); Calcium 9.3 mg/dl (8.5-10.1); Carbon Dioxide 26 mmol/L (21-32); Creatinine Clr Calc Pharmacy 36.5 ml/min; Est GFR (African American) 49.9; Est GFR (Non-African American) 43.1; Glucose 179 mg/dl (70-99); Lipase 133 U/L (73-393); Magnesium 1.6 mg/dl (1.8-2.4)
[2020-09-19 04:39] LABS: Albumin Globulin Ratio 0.7 (0.9-2); Alkaline Phosphatase 216 U/L (45-117); Bilirubin,Total 2.4 mg/dl (0.2-1); Globulin 4.9 gm/dl (2.5-4.0); Total Protein 8.5 gm/dl (6.4-8.2); Troponin I < 0.015 ng/ml (0-0.045)
[2020-09-19] MEDS ORDERED: IOVERSOL 100ml IV ONE (04:44)
[2020-09-19] MEDS ORDERED: PIPERACILL/TAZOBAC CONSULT ACTIVE PRN ×2 (05:33→08:24)
[2020-09-19] MEDS ORDERED: PIPERACILLIN/TAZOBACTAM 4.5 GM/120 ML BAG IV ONE (05:33)
--- NOTE | 2020-09-19 06:03 | Emergency Department Note ---
ED Visit Note I saw this patient in conjunction with Shubham Nichols PA-C. I agree with his decision making and treatment plan. .
--- NOTE | 2020-09-19 06:42 | History & Physical Report ---
Date of Service September 19, 2020 Assessment & Plan (1) Choledocholithiasis: 85yo female s/p cholecystectomy, recent admission for gallstone pancreatitis s/p ERCP with stone removal and biliary stent placement with subsequent removal returns with abdominal pain. Afebrile, HD stable and non- toxic in appearance. Labs confirm mixed patterned LFTs with CZ=030, Tbili=2.4 as well as elevated XXM=579, MFK=766. +Leukocytosis with WBC=16.88. Imaging suggestive of filling defect in the distal CBC concerning for choledocholithiasis. -Admit to medical/surgical -NPO except medications -ZOsyn 3.375gm IV q 8 -GI consultation appreciated -Repeat CBC, BMP and LFTs in AM Present on Admission?: Yes (2) Hypertension: Blood pressure stable at presetn -Continue Amlodipine and Atenolol at home doses -Continue to monitor Present on Admission?: Yes (3) Diabetes: Patient on Metformin. Last HgbA1c on 07/09/20 showed adequate control of blood sugars A1C=6.4 -Hold Metformin -Lantus 5u BID -ISS F/E/N - LR at 80mL/hr x 1 liter, Mg x 2gm, NPO for now Ppx - low risk for DVT Code - DNR/DNI per discussion with patient, at bedside Dispo - Admit to medical History of Present Illness Chief Complaint: RUQ abdominal pain Primary Care Provider: PABLO Arenas Amparo Cedillo is an 85yo C female presenting with acute onset RUQ abdominal pain occurring at 16:00 yesterday similar to prior pancreatitis pain. Patient with history of cholecystectomy many years ago. She was recently admitted to [facility] from 07/08-07/11 for acute gallstone pancreatitis. She had an ERCP performed on 07/10/[address] Baumann which revealed choledocholithiasis. He performed biliary sphincterotomy, spincteroplasty and balloon extraction of stones with stent placement to the CBD. Stent was removed on 09/10/20. No additional complaints at this time. ER Course: Zosyn, Morphine, Zofran Allergies Allergy/AdvReac Type Severity Reaction Status Date / Time bee venom protein (honey bee) Allergy Intermediate HIVES Verified 09/19/20 03:26 Sulfa (Sulfonamide Allergy Unknown . Verified 09/19/20 03:26 Antibiotics) lisinopril Allergy COUGH Verified 09/19/20 03:26 Home Medications Medication Instructions Recorded Confirmed Type atenolol 25 mg tablet 25 mg PO DAILY #30 tab 05/08/20 09/19/20 Rx triamcinolone acetonide 0.1 % 1 appln TOP BID PRN #15 gm 05/08/20 09/19/20 Rx topical cream amlodipine 5 mg tablet 5 mg PO DAILY #90 tab 06/21/20 09/19/20 Rx metformin 500 mg PO BID 07/08/20 09/19/20 History vit C,E,zinc,copper-[id number] 250 1 cap PO DAILY 07/12/20 09/19/20 History mg-lutein 5 mg-zeaxanthin 1 mg capsule cholecalciferol (vitamin D3) 25 mcg PO DAILY 09/19/20 09/19/20 History [Vitamin D3] Past Med/Surg History Medical History (Updated 09/19/20 @ 06:40 by Kelly Mane DO) Acid reflux Acid reflux disease Acute pancreatitis Breast cancer, right breast Chronic reflux esophagitis Diabetes Epigastric abdominal pain Hyperlipidemia Hypertension Hypokalemia Sensorineural hearing loss (SNHL) Surgical History H/O right breast biopsy 20 years ago - benign H/O total hysterectomy with bilateral salpingo-oophorectomy (BSO) History of appendectomy History of cholecystectomy Hx of cataract surgery Only right eye Status post excisional biopsy Bilateral excisional biopsies - benign Status post right breast lumpectomy 2016 and then 2018 for a recurrence SLN biopsy as well Family History Mother , 68yo; Stroke Hypertension Father , at 52yo; Heart disease Smoker Sister Hypertension COPD (chronic obstructive pulmonary disease) CHF (congestive heart failure) Obesity Sister Diabetes 1.5, managed as type 1 Hypertension Paget's disease Son Myocardial infarction History of heart artery stent Tongue cancer Lyme disease Bipolar affect, depressed Son Brain cancer Daughter Leukemia Cervical cancer Denies family history of Ovarian cancer Prostate cancer Breast cancer Colorectal cancer Social History Smoking Status: Never smoker Second Hand Exposure: No; Hx Alcohol Use: No Hx Substance Use: No Preferred Language: Afghan Communication Ability: Effective Visual Impairment: No Limitations Hearing Ability: Normal Quantitative Research Analyst Required: No Beliefs That Will Affect Care: None marital status: Current Living Situation: Spouse current occupational status: 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 Feels Safe at Home: Yes caffeine: Yes (3 cups/day) during the past year weight has: remained stable Dental Care, Regularly: Yes Physical Activity Frequency: Does not Exercise Seatbelt Use: always Sunscreen Use: No Assistive Devices: None Review of Systems Review of Systems: All systems reviewed & are unremarkable except as noted in HPI & below +Chills Physical Exam Physical Exam: General: patient resting comfortably, NAD, non-toxic in appearance, AA&O x 4 Skin: warm, dry, intact, +mild jaundice, no rashes or lesions HEENT: NC/AT, PERRL, EOMI, mild scleral icterus, conjunctiva without injection, external ear normal to inspection and nontender, nares patent, moist mucus membranes, +Sublingual jaundice, dentition intact, +torus palatinas, no oropharyngeal lesions, neck supple, trachea midline, no LAD, no thyromegaly, no JVD Heart: +S1/S2, regular, no m/r/g Lungs: equal air entry bilaterally, no rales/rhonchi/wheezes Abd: +BS, soft, tender in RUQ without rebound/guarding/peritoneal signs, no masses/organomegaly/ascites Ext: warm, 2+ pulses in UE/LE bilaterally, no clubbing/cyanosis or edema Neuro: nonfocal, patient AA&O x 4, speech intact, no facial droop, moving all extremities on command with equal strength 5/5 Results & Data Results & Data ([facility]) Vital Signs (Past 12 Hours) Vital Signs Temp Pulse Pulse Resp BP BP Pulse Ox 09/19/20 05:02 66 17 162/61 H 95 09/19/20 03:48 100 09/19/20 03:02 36.9 C 73 20 193/93 H 97 Laboratory Results Lab Results 09/19/20 09/19/20 09/19/20 Range/Units 03:38 04:00 04:00 WBC 16.88 H (4.8-10.8) K/uL RBC 4.41 (4.2-5.4) M/uL Hgb 13.8 (12.0-16.0) g/dL Hct 40.7 (37-47) % MCV 92.3 (80-100) fL MCH 31.3 (25-34) pg MCHC 33.9 (32-36) g/dL RDW Std Deviation 44.4 (36.4-46.3) fL RDW Coeff of Xena 13.2 (11.5-14.5) % Plt Count 318 (130-400) K/uL MPV 10.2 (7.4-10.4) fL Immature Gran % (Auto) 0.3 % Neut % (Auto) 91.6 % Lymph % (Auto) 4.7 % [place] % (Auto) 3.3 % Eos % (Auto) 0.0 % Baso % (Auto) 0.1 % Neut # (Auto) 15.48 H (1.4-6.5) K/uL Lymph # (Auto) 0.79 L (1.2-3.4) K/uL [place] # (Auto) 0.55 (0.11-0.59) K/uL Eos # (Auto) 0.00 (0-0.5) K/uL Baso # (Auto) 0.01 (0-0.2) K/uL Immature Gran # (Auto) 0.05 H (0.00-0.02) K/uL PT 10.8 (9.0-12.0) Seconds INR 1.0 (0.9-1.1) APTT 24.8 (21.0-31.0) Seconds PTT Ratio 0.9 Sodium (136-145) mmol/L Potassium (3.5-5.1) mmol/L Chloride (98-107) mmol/L Carbon Dioxide (21-32) mmol/L Anion Gap (3-11) BUN (7-18) mg/dl Creatinine (0.6-1.2) mg/dl Est Cr Clr Drug Dosing ml/min Est GFR ( Amer) Est GFR (Non-Af Amer) BUN/Creatinine Ratio (10-20) Glucose (70-99) mg/dl Calcium (8.5-10.1) mg/dl Magnesium (1.8-2.4) mg/dl Total Bilirubin (0.2-1) mg/dl AST (15-37) U/L ALT (12-78) U/L Alkaline Phosphatase (45-117) U/L Troponin I (0-0.045) ng/ml Total Protein (6.4-8.2) gm/dl Albumin (3.4-5.0) gm/dl Globulin (2.5-4.0) gm/dl Albumin/Globulin Ratio (0.9-2) Lipase (73-393) U/L Urine Color Dark Yellow Urine Appearance Cloudy A (Clear) Urine pH 8.5 H (4.5-7.5) Ur Specific Christine 1.019 (1.000-1.030) Urine Protein 2+ H (Negative) Urine Glucose (UA) Negative (Negative) Urine Ketones Negative (Negative) Urine Blood Negative (Negative) Urine Nitrite Negative (Negative) Urine Bilirubin Negative (Negative) Urine Urobilinogen Negative (Negative) Ur Leukocyte Esterase Negative (Negative) Urine WBC (Auto) 1-5 (0-5) /hpf Urine RBC (Auto) 0-4 (0-4) /hpf U Hyaline Cast (Auto) 0 (0-5) /lpf U Epithel Cells (Auto) 20-30 H (0-5) /lpf Urine Bacteria (Auto) Negative (Negative) COVID-19 Eval Order SARS-CoV-2, RNA, NAAT (NEGATIVE) 09/19/20 09/19/20 09/19/20 Range/Units 04:00 Unknown Unknown WBC (4.8-10.8) K/uL RBC (4.2-5.4) M/uL Hgb (12.0-16.0) g/dL Hct (37-47) % MCV (80-100) fL MCH (25-34) pg MCHC (32-36) g/dL RDW Std Deviation (36.4-46.3) fL RDW Coeff of Xena (11.5-14.5) % Plt Count (130-400) K/uL MPV (7.4-10.4) fL Immature Gran % (Auto) % Neut % (Auto) % Lymph % (Auto) % [place] % (Auto) % Eos % (Auto) % Baso % (Auto) % Neut # (Auto) (1.4-6.5) K/uL Lymph # (Auto) (1.2-3.4) K/uL [place] # (Auto) (0.11-0.59) K/uL Eos # (Auto) (0-0.5) K/uL Baso # (Auto) (0-0.2) K/uL Immature Gran # (Auto) (0.00-0.02) K/uL PT (9.0-12.0) Seconds INR (0.9-1.1) APTT (21.0-31.0) Seconds PTT Ratio Sodium 136 (136-145) mmol/L Potassium 3.9 (3.5-5.1) mmol/L Chloride 101 (98-107) mmol/L Carbon Dioxide 26 (21-32) mmol/L Anion Gap 9.0 (3-11) BUN 17 (7-18) mg/dl Creatinine 1.17 (0.6-1.2) mg/dl Est Cr Clr Drug Dosing 36.5 ml/min Est GFR ( Amer) 49.9 Est GFR (Non-Af Amer) 43.1 BUN/Creatinine Ratio 14.9 (10-20) Glucose 179 H (70-99) mg/dl Calcium 9.3 (8.5-10.1) mg/dl Magnesium 1.6 L (1.8-2.4) mg/dl Total Bilirubin 2.4 H (0.2-1) mg/dl AST 640 H (15-37) U/L ALT 393 H (12-78) U/L Alkaline Phosphatase 216 H (45-117) U/L Troponin I < 0.015 (0-0.045) ng/ml Total Protein 8.5 H (6.4-8.2) gm/dl Albumin 3.6 (3.4-5.0) gm/dl Globulin 4.9 H (2.5-4.0) gm/dl Albumin/Globulin Ratio 0.7 L (0.9-2) Lipase 133 (73-393) U/L Urine Color Urine Appearance (Clear) Urine pH (4.5-7.5) Ur Specific Christine (1.000-1.030) Urine Protein (Negative) Urine Glucose (UA) (Negative) Urine Ketones (Negative) Urine Blood (Negative) Urine Nitrite (Negative) Urine Bilirubin (Negative) Urine Urobilinogen (Negative) Ur Leukocyte Esterase (Negative) Urine WBC (Auto) (0-5) /hpf Urine RBC (Auto) (0-4) /hpf U Hyaline Cast (Auto) (0-5) /lpf U Epithel Cells (Auto) (0-5) /lpf Urine Bacteria (Auto) (Negative) COVID-19 [facility] SARS-CoV-2, RNA, NAAT NEGATIVE (NEGATIVE) Diagnostic Findings CT Abdomen and Pelvis with contrast: Per STAT-rad - moderate intrahepatic and extrahepatic...there is high density seen within the lumen of the distal CBD suggestive of choledocholithiasis. This can be confirmed on MRCP study. 2.5cm space occupying lesion seen in the right breast can be correlated with prior surgical history and mammogram. Nodular macro calcifications also seen in the right breast. PG Care Time/CCT Total # of Minutes Spent Total Time Spent with Patient: Total time spent is greater than 50% in coordination of care (as documented) at patient's floor/unit and/or counseling patient: Coding Level of Care Code 65869 Initial Inpt Care Lvl 2 Diagnoses Choledocholithiasis K80.50 Hypertension I10 Hypertension type: essential hypertension Diabetes E11.9 Diabetes mellitus type: type 2 Diabetes mellitus senior living insulin use: without engineer automated equipment use Diabetes mellitus complication status: without complication (1) Hypertension Hypertension type: essential hypertension Qualified Code(s): I10 - Essential (primary) hypertension (2) Diabetes Diabetes mellitus type: type 2 Diabetes mellitus senior living insulin use: without engineer automated equipment use Diabetes mellitus complication status: without complication Qualified Code(s): E11.9 - Type 2 diabetes mellitus without complications
--- NOTE | 2020-09-19 06:53 | CT Scan Report ---
CT OF THE ABDOMEN AND PELVIS WITH CONTRAST CLINICAL HISTORY: Epigastric/R sided abd pain. Recent stent removal COMPARISON STUDY: CT of the abdomen and pelvis and MRCP July 08, 2020. TECHNIQUE: Following IV administration of 94 mL of Optiray-320, axial images of the abdomen and pelvi s were obtained from the lung bases to the proximal femurs. Images were reviewed in the axial, sagitt al, and coronal planes. IV contrast was administered without complication. Automated exposure contro l was utilized for the study. A dose lowering technique was utilized adhering to the principles of A BRAYAN. CT DOSE: 527.64 mGy.cm FINDINGS: Imaged portions of the right breast demonstrate a stable 2.5 cm thick-walled hypodensity wi thin the right breast with right breast skin thickening. This is unchanged since CT of July 08. No pneumatosis, free air or portal venous gas is present. Moderate intra and extrahepatic biliar y ductal dilatation is present. The common bile duct measures 1.6 cm in caliber. There is extensive i ntraluminal material within the distal common bile duct. No peripancreatic infiltration is present. T here is no pancreatic ductal dilatation. A cyst within the upper pole the right kidney is noted. Is n o hydronephrosis. Colonic diverticulosis is noted without evidence for acute diverticulitis. There is no evidence for a bowel obstruction. No abdominal or pelvic lymphadenopathy is present. No suspiciou s lesions are identified within visualized skeletal structures. No acute fractures are noted. Major v asculature is patent. IMPRESSION: 1. Moderate intra and extrahepatic biliary ductal dilatation. Intraluminal material within the distal common bile duct favors choledocholithiasis. 2. No change in a 2.5 cm hypodensity within the right breast with right breast skin thickening. This favors post therapeutic change however can be assessed on subsequent mammogram. 3. No bowel obstruction. 4. Colonic diverticulosis without evidence for acute diverticulitis. ACT 112: Negative or not required by law. Electronically signed by: Jensen Royal M.D. 09/19/2020 6:52 AM
--- NOTE | 2020-09-19 06:58 | Emergency Department Note ---
ED Visit Note I saw this patient in conjunction with Shubham Nichols PA-C. I agree with his decision making and treatment plan. .
[2020-09-19] MEDS ORDERED: DEXTROSE 50% 50 ML SYRINGE IV PRN (08:24)
[2020-09-19] MEDS ORDERED: GLUCOSE 40% GEL 15 GM TUBE PO PRN (08:24)
[2020-09-19] MEDS ORDERED: CARBOHYDRATES FOR HYPOGLYCEMIA PO PRN (08:24)
[2020-09-19] MEDS ORDERED: SODIUM CHLORIDE 0.9% 1000ML 1,000 ML IV SCH (08:24)
[2020-09-19] MEDS ORDERED: ONDANSETRON INJ 2 MG/ML 2 ML VIAL IV PRN ×2 (08:24→13:56)
[2020-09-19] MEDS ORDERED: ACETAMINOPHEN 325 MG TAB PO PRN (08:24)
[2020-09-19] MEDS ORDERED: GLUCOSE 10 TABS/TUBE PO PRN (08:24)
[2020-09-19] MEDS ORDERED: MoRPHine SULFATE 2 MG/ML CARP IV PRN (08:24)
[2020-09-19] MEDS ORDERED: GLUCAGON FOR INJ 1 MG VIAL SQ PRN (08:24)
[2020-09-19] MEDS ORDERED: Nursing to Pharmacy Communication SCH ×2 (08:30→09:30)
[2020-09-19] MEDS ORDERED: INSULIN ASPART 100 UNITS/ML 3 ML PEN SC SCH (09:00)
[2020-09-19] MEDS ORDERED: ATENOLOL 25 MG TABLET PO SCH ×2 (09:00→17:00)
[2020-09-19] MEDS: MAGNESIUM SULFATE / D5W 1 GM/100 ML BAG IV SCH ×2 (09:18→11:22)
[2020-09-19] MEDS: INSULIN ASPART 100 UNITS/ML 3 ML PEN SC SCH ×4 (09:19→20:55)
[2020-09-19] MEDS: INSULIN GLARGINE SOLOSTAR 100 UNITS/ML 3 ML PEN SC SCH ×2 (09:19→20:56)
[2020-09-19] MEDS: amLODIPine BESYLATE 5 MG TAB PO SCH (09:20)
--- NOTE | 2020-09-19 10:35 | Gastrointestinal Consultation ---
Date of Consultation September 19, 2020 Assessment & Plan (1) Choledocholithiasis: ERCP this afternoon by Dr. Derik Mireles. Please keep pt NPO until procedure. Present on Admission?: Yes (2) Leukocytosis: Covered for possible cholangitis with Zosyn Q8hrs. Will continue to follwo. Supervising Physician Co-Signing Physician Notes I saw and evaluated the patient she presented with onset of right-sided abdominal discomfort and now has an elevated white blood cell count bilirubin and liver enzymes suggestive of cholangitis. Her history is notable for choledocholithiasis for which she had a recent ERCP with gallstone extraction. She had presented initially back in July with a similar episode requiring her index ERCP. Physical exam No obvious distress, mild scleral icterus Mild right-sided tenderness Impression: Patient with a very large common bile duct on imaging likely resulting in recurrent development of choledocholithiasis. We are planning for ERCP today given the suspicion for cholangitis. We discussed the risks of the procedure to include bleeding, infection, perforation, pain, failed biliary cannulation and need for follow-up studies History of Present Illness Reason for Consultation: choledocholithiasis Requesting Physician: Kelly Mane DO Attending Physician: Kelly Mane DO History of Present Illness Ms. Amparo Cedillo is an 85 yr old female pt of Annika Salamanca NP at [facility]. Ms. Cedillo carries a hx of DM, HTN, hyperlipidemia, GERD and hearing loss. She is S/P distant cholecystectomy. In Jul 2020, she experienced gallstone pancreatitis and underwent ERCP with sphincterotomy and insertion of a bile duct stent which was removed a week ago. Last evening, she experienced the sudden onset of moderately severe epigastric and RUQ pain, radiating to her back. Because she recognized this as the same pain that she experienced in July, she presented to the ED. She denies having had any symptoms between July and now. She has not had nausea, vomiting, constipation, diarrhea and denies noticing any yellow eyes or skin. She has not had fever, chills. On arrival, she does have leukocytosis at 16.8 and temp was borderline at 36.9. CT with choledocholithiasis and dilated bile duct. LFTs are newly elevated: T bili 2.4, AST 640, ALT 393, ALk Phs 216. She has been comfortable since receiving an IV pain med in the ED. She is hemodynamically stable, awake, alert, comfortable and conversational. Allergies Allergy/AdvReac Type Severity Reaction Status Date / Time bee venom protein (honey bee) Allergy Intermediate HIVES Verified 09/19/20 03:26 Sulfa (Sulfonamide Allergy Unknown . Verified 09/19/20 03:26 Antibiotics) lisinopril Allergy COUGH Verified 09/19/20 03:26 Home Medications Medication Instructions Recorded Confirmed Type atenolol 25 mg tablet 25 mg PO DAILY #30 tab 05/08/20 09/19/20 Rx triamcinolone acetonide 0.1 % 1 appln TOP BID PRN #15 gm 05/08/20 09/19/20 Rx topical cream amlodipine 5 mg tablet 5 mg PO DAILY #90 tab 06/21/20 09/19/20 Rx metformin 500 mg PO BID 07/08/20 09/19/20 History vit C,E,zinc,copper-epuuk8c 250 1 cap PO DAILY 07/12/20 09/19/20 History mg-lutein 5 mg-zeaxanthin 1 mg capsule cholecalciferol (vitamin D3) 25 mcg PO DAILY 09/19/20 09/19/20 History [Vitamin D3] Patient History Medical History Acid reflux Acid reflux disease Acute pancreatitis Breast cancer, right breast Chronic reflux esophagitis Diabetes Epigastric abdominal pain Hyperlipidemia Hypertension Hypokalemia Sensorineural hearing loss (SNHL) Surgical History H/O right breast biopsy 20 years ago - benign H/O total hysterectomy with bilateral salpingo-oophorectomy (BSO) History of appendectomy History of cholecystectomy Hx of cataract surgery Only right eye Status post excisional biopsy Bilateral excisional biopsies - benign Status post right breast lumpectomy 2017 and then 2019 for a recurrence SLN biopsy as well Family History Mother , 68yo; Stroke Hypertension Father , at 52yo; Heart disease Smoker Sister Hypertension COPD (chronic obstructive pulmonary disease) CHF (congestive heart failure) Obesity Sister Diabetes 1.5, managed as type 1 Hypertension Paget's disease Son Myocardial infarction History of heart artery stent Tongue cancer Lyme disease Bipolar affect, depressed Son Brain cancer Daughter Leukemia Cervical cancer Denies family history of Ovarian cancer Prostate cancer Breast cancer Colorectal cancer Social History Smoking Status: Never smoker Second Hand Exposure: No; Hx Alcohol Use: No Hx Substance Use: No Preferred Language: Romanian Communication Ability: Effective Visual Impairment: No Limitations Hearing Ability: Normal Resort Host Required: No Beliefs That Will Affect Care: None marital status: Current Living Situation: Spouse 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 : Denies pain on urination Skin: No jaundice, itching or new rashes Physical Exam Constitutional: WD/WN, vitals as above + overweight; no acute distress Eyes: PERRL mild icterus ENMT: external ear and nose normal, oropharynx normal Neck: trachea midline, no thyromegaly Respiratory: normal respiratory effort, lungs clear to auscultation Cardiovascular: RRR, no murmur, no edema Gastrointestinal (Abdomen): Inspection/Auscultation: abdomen normal to inspection and normal bowel sounds Percussion/Palpation: + abdomen tender (moderate tenderness in the epigastric area) and abdomen soft Musculoskeletal: no cyanosis or clubbing, extremities motor strength 5/5 Skin: normal turgor and + jaundice (mild); no rashes, no wound and no dry skin Neurologic: PERRL, EOMI, accommodation nl, no face palsy, no dysarthria Psychiatric: A+Ox3, euthymic affect Lymphatic: no cervical or axillary lymphadenopathy Results & Data ([facility]) Vital Signs (Past 12 Hours) Vital Signs Temp Pulse Pulse Resp BP BP Pulse Ox 09/19/20 06:00 66 18 148/59 H 96 09/19/20 05:02 66 17 162/61 H 95 09/19/20 03:48 100 09/19/20 03:02 36.9 C 73 20 193/93 H 97 Laboratory Results See HPI Diagnostic Findings CT abd/pelvis 09/19/20 with IV, no oral contrast: 1. Moderate intra and extrahepatic biliary ductal dilatation. Intraluminal material within the distal common bile duct favors choledocholithiasis. 2. No change in a 2.5 cm hypodensity within the right breast with right breast skin thickening. This favors post therapeutic change however can be assessed on subsequent mammogram. 3. No bowel obstruction. 4. Colonic diverticulosis without evidence for acute diverticulitis.
[2020-09-19] MEDS: PIPERACILLIN/TAZOBACTAM 3.375 GM in DEXTROSE 5% 100 ML IV SCH ×2 (11:32→18:43)
[2020-09-19] MEDS ORDERED: IOVERSOL 50ml IV ONE (12:07)
[2020-09-19] MEDS ORDERED: INDOMETHACIN 50 MG SUPP PR ONE (13:53)
--- NOTE | 2020-09-19 13:55 | Anesthesiology Consultation ---
Date of Service September 19, 2020 Assessment & Plan Chart Review Chart Review: Acceptable Risk for Surgery Consults Requested none History Surgery Operation Date: 09/19/20 07:00 Proposed Procedures p Endoscopic Retrograde Cholangiopancreato Radha Mireles DO Height/Weight Height: 5 ft 4 in Weight: 76.7 kg Allergies Allergy/AdvReac Type Severity Reaction Status Date / Time bee venom protein (honey bee) Allergy Intermediate HIVES Verified 09/19/20 03:26 Sulfa (Sulfonamide Allergy Unknown . Verified 09/19/20 03:26 Antibiotics) lisinopril Allergy COUGH Verified 09/19/20 03:26 Medications Home Medications Medication Instructions Recorded Confirmed Last Taken atenolol 25 mg tablet 25 mg PO DAILY #30 tab 05/08/20 09/19/20 07/08/20 triamcinolone acetonide 0.1 % 1 appln TOP BID PRN #15 gm 05/08/20 09/19/20 07/08/20 topical cream amlodipine 5 mg tablet 5 mg PO DAILY #90 tab 06/21/20 09/19/20 07/08/20 metformin 500 mg PO BID 07/08/20 09/19/20 07/08/20 vit C,E,zinc,copper-czmtp0x 250 1 cap PO DAILY 07/12/20 09/19/20 Unknown mg-lutein 5 mg-zeaxanthin 1 mg capsule cholecalciferol (vitamin D3) 25 mcg PO DAILY 09/19/20 09/19/20 Unknown [Vitamin D3] Active Medications Generic Name Dose Route Start Last Admin Trade Name Freq PRN Reason Stop Dose Admin Amlodipine Besylate 5 mg 09/19/20 09:00 09/19/20 09:20 Amlodipine Besylate 5 Mg Tab PO 10/19/20 08:59 5 mg DAILY BONI Administration Piperacillin Sod/Tazobactam 115 mls @ 28.75 mls/hr 09/19/20 10:00 09/19/20 11:32 Sod 3.375 gm/ Dextrose IV 09/29/20 09:59 28.8 mls/hr Q8H BONI Administration Protocol Sodium Chloride 1,000 mls @ 80 mls/hr 09/19/20 08:24 09/19/20 12:00 Nss 1000ml IV 09/19/20 20:53 80 mls/hr .[id number] BONI Infusion Insulin Aspart 0 units 09/19/20 09:00 09/19/20 12:40 Insulin Aspart 100 Units/Ml 3 Ml Pen SC 10/19/20 08:59 1 units Q6 BONI Administration Insulin Glargine 5 units 09/19/20 09:00 09/19/20 09:19 Insulin Glargine Solostar 100 Units/Ml 3 Ml Pen SC 10/19/20 08:59 5 units BID BONI Administration NPO Date Last Intake of Fluids: 09/18/20 Time Last Intake of Fluids: 16:00 Last Intake of Fluids Comment: patient had a sip of water with medication. Date Last Intake of Solids: 09/18/20 Time Last Intake of Solids: 12:00 Past Medical History Medical History Acid reflux Acid reflux disease Acute pancreatitis Breast cancer, right breast Chronic reflux esophagitis Diabetes Epigastric abdominal pain Hyperlipidemia Hypertension Hypokalemia Sensorineural hearing loss (SNHL) Past Family History Family History Mother , 68yo; Stroke Hypertension Father , at 52yo; Heart disease Smoker Sister Hypertension COPD (chronic obstructive pulmonary disease) CHF (congestive heart failure) Obesity Sister Diabetes 1.5, managed as type 1 Hypertension Paget's disease Son Myocardial infarction History of heart artery stent Tongue cancer Lyme disease Bipolar affect, depressed Son Brain cancer Daughter Leukemia Cervical cancer Denies family history of Ovarian cancer Prostate cancer Breast cancer Colorectal cancer Past Surgical History Surgical History H/O right breast biopsy 20 years ago - benign H/O total hysterectomy with bilateral salpingo-oophorectomy (BSO) History of appendectomy History of cholecystectomy Hx of cataract surgery Only right eye Status post excisional biopsy Bilateral excisional biopsies - benign Status post right breast lumpectomy 2017 and then 2019 for a recurrence SLN biopsy as well Social History Smoking Status: Never smoker Hx Alcohol Use: No Hx Substance Use: No substance use type: does not use Physical Exam Vital Signs Last Vital Signs Temp 36.7 C 09/19/20 13:38 Pulse 64 09/19/20 13:38 Resp 18 09/19/20 13:38 BP 156/60 H 09/19/20 13:38 Pulse Ox 95 11/18/20 13:38 Testing Laboratory Results 09/19/20 04:00 09/19/20 04:00 PT 10.8 Seconds (9.0-12.0) 09/19/20 04:00 INR 1.0 (0.9-1.1) 09/19/20 04:00 APTT 24.8 Seconds (21.0-31.0) 09/19/20 04:00 Urine Color Dark Yellow 09/19/20 03:38 Urine Appearance Cloudy (Clear) A 09/19/20 03:38 Urine pH 8.5 (4.5-7.5) H 09/19/20 03:38 Ur Specific [place] 1.019 (1.000-1.030) 09/19/20 03:38 Urine Protein 2+ (Negative) H 09/19/20 03:38 Urine Glucose (UA) Negative (Negative) 09/19/20 03:38 Urine Ketones Negative (Negative) 09/19/20 03:38 Urine Nitrite Negative (Negative) 09/19/20 03:38 Ur Leukocyte Esterase Negative (Negative) 09/19/20 03:38 Urine WBC (Auto) 1-5 /hpf (0-5) 09/19/20 03:38 Urine RBC (Auto) 0-4 /hpf (0-4) 09/19/20 03:38 U Hyaline Cast (Auto) 0 /lpf (0-5) 09/19/20 03:38 U Epithel Cells (Auto) 20-30 /lpf (0-5) H 09/19/20 03:38 Urine Bacteria (Auto) Negative (Negative) 09/19/20 03:38 09/19/20 09/19/20 12:00 08:18 POC Glucose 149 H 151 H
[2020-09-19] MEDS ORDERED: PROMETHAZINE HCL 12.5 MG in SODIUM CHLORIDE 0.9% 50 ML IV PRN (13:56)
[2020-09-19] MEDS ORDERED: ePHEDrine sulfate 50 MG/ML AMP IV PRN (13:56)
[2020-09-19] MEDS ORDERED: ATROPINE SULFATE 0.1 MG/ML 10ML SYR IV PRN (13:56)
[2020-09-19] MEDS ORDERED: HYDROmorphone INJ 1 MG/ML SYRINGE IV PRN (13:56)
[2020-09-19] MEDS ORDERED: METOCLOPRAMIDE HCL INJ 5 MG/ML 2 ML VIAL IV PRN (13:56)
[2020-09-19] MEDS ORDERED: fentaNYL citrate 100 MCG/2 ML VIAL IV PRN (13:56)
[2020-09-19] MEDS ORDERED: ROCURONIUM BROMIDE 10 MG/ML 5 ML VIAL IV ONE (14:02)
[2020-09-19] MEDS ORDERED: LIDOCAINE HCL 2% 2 ML VIAL/AMP(20MG/ML) INFIL ONE (14:02)
[2020-09-19] MEDS ORDERED: PROPOFOL IV EMULSION 10 MG/ML 20 ML VIAL IV ONE (14:02)
[2020-09-19] MEDS ORDERED: fentaNYL citrate 100 MCG/2 ML VIAL ONE (14:03)
[2020-09-19] MEDS ORDERED: MIDAZOLAM HCL 1 MG/ML 2ML VIAL ONE (14:03)
[2020-09-19] MEDS ORDERED: ePHEDrine sulfate 50 MG/ML SYR ONE (14:47)
--- NOTE | 2020-09-19 14:52 | Post Operative Brief Note ---
Immediate Post Op Note v1 Date of Surgery September 19, 2020 Pre & Post Diagnosis Operation Date: 09/19/20 07:00 Pre-Op Diagnosis: Choledocholithiasis Post-Op Diagnosis: Choledocholithiasis I identified the patient and participated in the time-out.: Yes Procedure Operation Date: 09/19/20 07:00 Actual Procedures p Endoscopic Retrograde Cholangiopancreatography(Not Applicable) - Derik Mireles DO Surgeon Derik Mireles DO [employer] Truck Driver none Estimated Blood Loss 0 Findings Consistent with Post-Op Diagnosis
[2020-09-19] MEDS ORDERED: ONDANSETRON INJ 2 MG/ML 2 ML VIAL ONE (15:08)
[2020-09-19] MEDS ORDERED: DEXAMETHASONE SOD INJ 4 MG/ML VIAL ONE (15:08)
--- NOTE | 2020-09-19 15:08 | Communication Note ---
s.Date of Service: September 19, 2020 The patient underwent ERCP this afternoon for suspected cholangitis. She was found to have evidence of a stricture in the distal common bile duct consistent with stenosis which is likely inflammatory in nature. The cholangiogram also revealed several filling defects within the common duct. We removed several small stones and a large amount of sludge from the duct in addition to pus. A covered metal biliary stent was placed to allow for stricture remodeling Recommendations Clear liquids today Complete a 10-day course of antibiotics Repeat ERCP in 4 months
--- NOTE | 2020-09-19 15:10 | Fluoroscopy Report ---
[place] ERCP biliary ductal CLINICAL HISTORY: ERCP COMPARISON STUDY: Abdomen and pelvis CT 09/19/2020. FLUOROSCOPY TIME: 43 seconds. FINDINGS: 9 fluoroscopic spot images the right upper quadrant were submitted. The ampulla was cannula toby and contrast was injected into the common bile duct. Mild intrahepatic bile duct dilatation is no toby. A balloon sweep was performed. This is followed by placement of a metallic common bile duct sten t which appears in good position. IMPRESSION: Fluoroscopy provided for ERCP. ACT 112: Negative or not required by law. Electronically signed by: Marcus Vanegas M.D. 09/19/2020 3:09 PM
--- NOTE | 2020-09-19 15:11 | GI REPORT ---
Patient Name: Amparo Cedillo Procedure Date: 09/19/2020 2:04 PM Date of : 1935 Admit Type: Inpatient Age: 85 Gender: Female Attending MD: Derik Mireles DO Procedure: ERCP Providers: Derik Mireles DO Referring MD: Kelly Mane, Rick Baumann MD, Annika Salamanca Indications: Abdominal pain of suspected biliary origin, Suspected ascending cholangitis Medicines: General Anesthesia Complications: No immediate complications. Estimated blood loss: Minimal. Estimated Blood Loss: Estimated blood loss was minimal. Procedure: Pre-Anesthesia Assessment: - Prior to the procedure, a History and Physical was performed, and patient medications, allergies and sensitivities were reviewed. The patient's tolerance of previous anesthesia was reviewed. - The risks and benefits of the procedure and the sedation options and risks were discussed with the patient. All questions were answered and informed consent was obtained. - Patient identification and proposed procedure were verified prior to the procedure by the physician, the nurse and the deer farmer. The procedure was verified in the procedure room. - Pre-procedure physical examination revealed no contraindications to sedation. - ASA Grade Assessment: III - A patient with severe systemic disease. - After reviewing the risks and benefits, the patient was deemed in satisfactory condition to undergo the procedure. - The anesthesia plan was to use general anesthesia. - Immediately prior to administration of medications, the patient was re-assessed for adequacy to receive sedatives. - The heart rate, respiratory rate, oxygen saturations, blood pressure, adequacy of pulmonary ventilation, and response to care were monitored throughout the procedure. - The physical status of the patient was re-assessed after the procedure. After obtaining informed consent, the scope was passed under direct vision. Throughout the procedure, the patient's blood pressure, pulse, and oxygen saturations were monitored continuously. The Scope was introduced through the mouth, and advanced to the duodenum and used to inject contrast into the bile duct. The ERCP was accomplished without difficulty. The patient tolerated the procedure well. Findings: A planer operator / grader film of the abdomen was obtained. Surgical clips, consistent with a previous cholecystectomy, were seen in the area of the right upper quadrant of the abdomen. The esophagus was successfully intubated under direct vision without detailed examination of the pharynx, larynx, and associated structures, and upper GI tract. The upper GI tract was grossly normal. A biliary sphincterotomy had been performed. The sphincterotomy appeared open. The bile duct was deeply cannulated with the 12 -20 mm balloon and guidewire. Contrast was injected. I personally interpreted the bile duct images. Contrast extended to the hepatic ducts. The lower third of the main bile duct contained a single mild stenosis 7 mm in length. The main bile duct was moderately dilated and diffusely dilated. The largest diameter was 12 mm. The middle third of the main bile duct contained filling defect(s) thought to be a stone and sludge. To discover objects, the biliary tree was swept with a 15 mm balloon starting at the bifurcation. Sludge was swept from the duct. A few stones were removed. No stones remained. Pus was swept from the duct. One 10 Fr by 8 cm covered metal stent was placed 8 cm into the common bile duct ([place] Viabil, REF [id number], SN [id number]). Bile flowed through the stent. The stent was in good position. The total fluoroscopy exposure time was 41 seconds. The endoscope was withdrawn from the patient. Indomethacin 100 mg was given via suppository to decrease the risk of post-ERCP pancreatitis (PEP). Impression: - Prior biliary sphincterotomy appeared open. - A single mild biliary stricture was found in the lower third of the main bile duct. The stricture was inflammatory. - Choledocholithiasis and cholangitis was found. Complete removal was accomplished by balloon extraction. - One covered metal stent was placed into the common bile duct for stricture remodeling. - Indomethacin given to decrease risk of post-ERCP pancreatitis. Recommendation: - Return patient to hospital [facility] for ongoing care. - Clear liquid diet today. - Use broad spectrum antibiotics for 10 days. Derik Mireles D.O. Derik Mireles, 09/19/2020 3:10:59 PM This report has been signed electronically. Note Initiated On: 09/19/2020 2:04 PM Number of Addenda: 0 I attest to the content of the Intraoperative Record and orders documented therein, exceptions below {[id number]}
--- NOTE | 2020-09-19 15:17 | Anesthesiology Progress Note ---
Date of Service September 19, 2020 Anesthesia Post Procedure Vital Signs Vital Signs: Temp Pulse Pulse Resp BP BP Pulse Ox 09/19/20 15:10 56 L 19 126/54 L 99 09/19/20 15:03 36.3 C L 65 22 138/58 L 98 09/19/20 13:38 36.7 C 64 18 156/60 H 95 09/19/20 06:00 66 18 148/59 H 96 09/19/20 05:02 66 17 162/61 H 95 09/19/20 03:48 100 09/19/20 03:02 36.9 C 73 20 193/93 H 97 Pain Intensity Abdomen: Pain Intensity: 0 Transfer of Care Handoff Completed per policy Notes Mental Status: alert / awake / arousable and participated in evaluation Patient Amnestic to Procedure: Yes Nausea / Vomiting: adequately controlled Pain: adequately controlled Airway Patency, RR, SpO2: stable & adequate BP & HR: stable & adequate Hydration State: stable & adequate Anesthetic Complications: no major complications apparent and Pt Satisfied with anesthetic care
[2020-09-20] MEDS: PIPERACILLIN/TAZOBACTAM 3.375 GM in DEXTROSE 5% 100 ML IV SCH (02:51)
[2020-09-20 04:00] VITALS: TEMP 98.1
[2020-09-20 08:02] VITALS: BP 138/62; O2SAT 97
--- NOTE | 2020-09-20 08:07 | Anesthesiology Progress Note ---
Date of Service September 20, 2020 Anesthesia Post Procedure Vital Signs Vital Signs: Temp Pulse Pulse Pulse Resp BP Pulse Ox 09/20/20 08:01 36.7 C 45 L 18 138/62 97 09/20/20 03:59 36.7 C 60 16 127/79 96 09/19/20 23:15 36.8 C 54 L 16 127/73 96 09/19/20 18:50 37.2 C 61 18 127/69 93 09/19/20 17:50 37.3 C 61 20 127/69 94 09/19/20 16:50 37.1 C 54 L 18 131/70 92 09/19/20 16:20 37.1 C 58 L 18 127/66 92 09/19/20 15:50 37.1 C 62 18 129/76 93 09/19/20 15:40 37.0 C 58 L 19 135/57 L 94 09/19/20 15:30 59 L 18 127/56 L 94 09/19/20 15:20 54 L 20 132/53 L 100 09/19/20 15:10 56 L 19 126/54 L 99 09/19/20 15:03 36.3 C L 65 22 138/58 L 98 09/19/20 13:38 36.7 C 64 18 156/60 H 95 Pain Intensity Abdomen: Pain Intensity: 0 Notes Mental Status: alert / awake / arousable and participated in evaluation Patient Amnestic to Procedure: Yes Nausea / Vomiting: adequately controlled Pain: adequately controlled Airway Patency, RR, SpO2: stable & adequate BP & HR: stable & adequate Hydration State: stable & adequate Anesthetic Complications: no major complications apparent and Pt Satisfied with anesthetic care
[2020-09-20 08:20] LABS: Eosinophils # (auto) 0.01 K/uL (0-0.5); Eosinophils % (auto) 0.1 %; Hematocrit (blood only) 35.5 % (37-47); Hemoglobin 11.5 g/dL (12.0-16.0); Immature Granulocytes # (auto) 0.04 K/uL (0.00-0.02); Immature Granulocytes % (auto) 0.4 %; Lymphocytes # (auto) 0.75 K/uL (1.2-3.4); Lymphocytes % (auto) 6.9 %; Mean Corpuscular Hemoglobin 30.3 pg (25-34); Mean Corpuscular Hgb Conc 32.4 g/dL (32-36); Mean Corpuscular Volume 93.7 fL (80-100); Mean Platelet Volume 10.5 fL (7.4-10.4); Monocytes % (auto) 6.5 %; Neutrophils # (auto) 9.32 K/uL (1.4-6.5); Neutrophils % (auto) 86.1 %; Platelet Count 274 K/uL (130-400); RDW Coefficient of Variation 13.9 % (11.5-14.5); RDW Standard Deviation 47.6 fL (36.4-46.3); Red Blood Count 3.79 M/uL (4.2-5.4); White Blood Count 10.82 K/uL (4.8-10.8)
[2020-09-20 08:49] LABS: Albumin Level 2.8 gm/dl (3.4-5.0); BUN Creatinine Ratio 16.8 (10-20); Calcium 8.8 mg/dl (8.5-10.1); Creatinine Clr Calc Pharmacy 29.5 ml/min; Est GFR (African American) 38.5; Est GFR (Non-African American) 33.2; Potassium 3.8 mmol/L (3.5-5.1)
[2020-09-20 08:53] LABS: Bilirubin,Total 1.5 mg/dl (0.2-1); Total Protein 6.9 gm/dl (6.4-8.2)
[2020-09-20] MEDS: amLODIPine BESYLATE 5 MG TAB PO SCH (08:56)
[2020-09-20] MEDS: INSULIN GLARGINE SOLOSTAR 100 UNITS/ML 3 ML PEN SC SCH (08:56)
[2020-09-20] MEDS: INSULIN ASPART 100 UNITS/ML 3 ML PEN SC SCH ×2 (08:56→13:05)
--- NOTE | 2020-09-20 10:16 | Discharge Summary ---
Date of Service September 20, 2020 Admission HPI Per Admitting Provider Amparo Cedillo is an 85yo C female presenting with acute onset RUQ abdominal pain occurring at 16:00 yesterday similar to prior pancreatitis pain. Patient with history of cholecystectomy many years ago. She was recently admitted to [facility] from 07/08-07/11 for acute gallstone pancreatitis. She had an ERCP performed on 07/10/[address] Baumann which revealed choledocholithiasis. He performed biliary sphincterotomy, spincteroplasty and balloon extraction of stones with stent placement to the CBD. Stent was removed on 09/10/20. No additional complaints at this time. ER Course: Zosyn, Morphine, Zofran Admission Exam Per Admitting Provider General: patient resting comfortably, NAD, non-toxic in appearance, AA&O x 4 Skin: warm, dry, intact, +mild jaundice, no rashes or lesions HEENT: NC/AT, PERRL, EOMI, mild scleral icterus, conjunctiva without injection, external ear normal to inspection and nontender, nares patent, moist mucus me mbranes, +Sublingual jaundice, dentition intact, +torus palatinas, no oropharyngeal lesions, neck supple, trachea midline, no LAD, no thyromegaly, no JVD Heart: +S1/S2, regular, no m/r/g Lungs: equal air entry bilaterally, no rales/rhonchi/wheezes Abd: +BS, soft, tender in RUQ without rebound/guarding/peritoneal signs, no masses/organomegaly/ascites Ext: warm, 2+ pulses in UE/LE bilaterally, no clubbing/cyanosis or edema Neuro: nonfocal, patient AA&O x 4, speech intact, no facial droop, moving all extremities on command with equal strength 5/5 Principal Diagnosis Choledocholithiasis Discharge Exam Constitutional WD/WN, vitals as above Eyes PERRL, conjunctivae normal, anicteric sclerae ENMT external ear and nose normal, oropharynx normal Neck trachea midline, no thyromegaly Respiratory normal respiratory effort, lungs clear to auscultation Cardiovascular RRR, no murmur, no edema Gastrointestinal (Abdomen) Inspection/Auscultation: abdomen normal to inspection and normal bowel sounds; abdomen not distended Percussion/Palpation: + abdomen tender (minimal TTP RUQ, significantly improved per pt) and abdomen soft; no guarding and abdomen not rigid Musculoskeletal no cyanosis or clubbing, extremities motor strength 5/5 Skin no rashes, warm and dry Psychiatric A+Ox3, euthymic affect Discharge Data Allergies Allergy/AdvReac Type Severity Reaction Status Date / Time bee venom protein (honey bee) Allergy Intermediate HIVES Verified 09/19/20 03:26 Sulfa (Sulfonamide Allergy Unknown . Verified 09/19/20 03:26 Antibiotics) lisinopril Allergy COUGH Verified 09/19/20 03:26 Consultations 09/19/20 05:35 ED Decision to Admit Stat 09/19/20 08:24 Consult Gastroenterology Routine Procedures Performed Operation Date: 09/19/20 07:00 Actual Procedures p Endoscopic Retrograde Cholangiopancreatography(Not Applicable) - Derik Mireles DO Ordered Studies 09/19/20 [place] ERCP biliary ductal Routine 09/19/20 03:19 CT abd pelvis IV con only Stat Hospital Course (1) Choledocholithiasis: Patient is an 85 year old female with PMHx GERD, cholecystectomy, appendectomy, HLD, HTN who presented initially with abdominal pain with similar feelings to her prior pancreatitis pain. Choledocholithiasis -Initial labs with mixed pattern of LFTs with Alk Phos 216, Tbili 2.4, AST 640, ALT 393 -CT scan with filling defects in the distal CBC concerning for choledocholithiasis. -Patient was kept NPO and given IV Zosyn and IVF -GI consulted -patient underwent ERCP on 09/19/20 with removal of stones, sludge, and pus from the bile duct and placement of a metal stent -Discharged home with Ciprofloxacin 500mg BID x 9 days -Recommend repeat ERCP in the next 4 months -Follow up with PCP in the next 1-2 weeks Hypertension -Continued home Amlodipine and Atenolol DM2 -Held home metformin -Lantus and SSI Total Time Total Time Spent Total Time Spent (In Minutes): see attending attestation Discharge Plan Discharge Items Patient Disposition: Home - Self-Care Reason For Visit: CHOLEDOCHOLITHIASIS Discharge Diagnosis: Choledocholithiasis Condition on Discharge: Good Activity: Resume your previous activity Non-emergency contact: Primary Care Provider and Manager [employer] Call non-emergency contact if: you have any medication questions, your symptoms worsen and your pain is not controlled Follow-up/Referrals: Annika Salamanca CRNP [Primary Care Provider] - Diet: Regular Addtl Attending Provider Instructions: Ms. Cedillo, It was our pleasure caring for you at [facility] from 09/19- 09/20/20 for your abdominal pain found to be choledocholithiasis (bile duct stones). You were admitted and given IV antibiotics, IV fluids, and medications to control your nausea. You were also evaluated by our GI doctors who felt that an ERCP was indicated in regards to your symptoms. You underwent an ERCP the afternoon of 09/19/20 where there was removal of several small stones and a large amount of sludge from the duct in addition to pus. A covered metal biliary stent was also placed. Your diet was advanced and you were able to tolerate food well. You were deemed stable for discharge with the following recommendations: -Please continue to take your antibiotic, Ciprofloxacin 500mg twice a day by mouth for 9 total days, your first dose was in the hospital today and you will take your second dose tonight at home. -Follow up with your PCP in the next 1-2 weeks -GI recommends a repeat ERCP in the next 4 months. Pending Studies at Discharge: No Stand-Alone Forms: My [facility], Smoking Cessation Medications and DC Order Prescriptions: New ciprofloxacin HCl 500 mg tablet 500 mg PO BID 9 Days Qty: 17 RF: 0 Continued atenolol 25 mg tablet 25 mg PO DAILY Qty: 30 RF: 5 triamcinolone acetonide 0.1 % cream 1 appln TOP BID PRN (Reason: ECZEMA) Qty: 15 RF: 2 amlodipine 5 mg tablet 5 mg PO DAILY Qty: 90 RF: 3 Ocuvite Adult 50 Plus 250-5-1 mg capsule 1 cap PO DAILY RF: 0 metformin 500 mg tablet extended release 24 hr 500 mg PO BID RF: 0 cholecalciferol (vitamin D3) [Vitamin D3] 25 mcg (1,000 unit) Tablet 25 mcg PO DAILY RF: 0 Discharge Orders: Discharge Order (Routine); Ordered 09/20/20 Ordered By: Geovani Mann/Other Patient Handouts: Discharge Instructions for Gallstones, Ciprofloxacin tablets Admission Data Admit Date/Time: 09/19/20 06:28 Attending Provider: Carina Majano Admit Provider: Kelly Mane Primary Care Provider: Annika Salamanca Other Providers: Kelly Mane [place] Other Interventions: Discharge Summary Assessment (RN) Last Done: 09/20/20 13:53 Supervising Physician Co-Signing Physician Notes Resident Physician Supervision Note: I independently interviewed and examined the patient and verified the borrego history and physical, reviewed labs and image studies, discussed the case with the resident Dr. Villeda and agree with the findings and care plan. Resident Activity Tracking Resident Involvement: Resident Care Provided Care Provided: Adult [facility] Medicine
--- NOTE | 2020-09-20 11:06 | Gastroenterology Progress Note ---
Date of Service September 20, 2020 Assessment & Plan (1) Choledocholithiasis: She is Post procedure day #1 from ERCP with sweeping of stones from the bile duct and placement of a metal stent. LFTs improved. Leukocytosis resolved. Clinically she is doing very well. OK to advance diet and discharge. Antibiotics: please change to Cipro 500mg BID and continue for a total of 10 days of antibiotics (so 8 OP days). Pt will have OP ERCP in 3-4 months for removal or replacement of the bile duct stent. Present on Admission?: Yes Admission and Anticipated Discharge Date Admission Date: September 19, 2020 Supervising Physician Co-Signing Physician Notes Attending attestation I have seen, examined this patient, and agree with the findings and above by our mid-level provider Ms. Jackie SHAH, with the following additions: - Doing well Post ERCP, no signs of issues Subjective Ms. Amparo Cedillo is an 85 yr old female pt of Annika Salamanca NP. Distant cholecystectomy. ERCP in Jul for choledocholithisis, then stent removal last week. Admitted 09/18 with choledocholithasis and elevated WBC and LFTs. Underwent ERCP yesterday with clearing of the duct from stones and placement of a metal stent. Today: feels very good. Sitting up in the chair at bedside. Tolerated a clear liquid diet well last night and this morning. Leukocytosis resolved. LFTs improving. Review of Systems Review of Systems: ROS: Gen: Denies weakness, fevers, weight loss Eyes: No eye redness, or pain, no recent vision changes Resp: No SOB, no cough Cardio: No palpitations/irregular beats, no chest pain GI: See HPI otherwise (-). : Denies pain on urination Skin: No jaundice, itching or new rashes Physical Exam Constitutional: WD/WN, vitals as above + overweight; no acute distress Eyes: PERRL ENMT: external ear and nose normal, oropharynx normal Neck: trachea midline, no thyromegaly Respiratory: normal respiratory effort, lungs clear to auscultation Cardiovascular: RRR, no murmur, no edema Gastrointestinal (Abdomen): Inspection/Auscultation: abdomen normal to inspection and normal bowel sounds Percussion/Palpation: abdomen soft; abdomen nontender Musculoskeletal: no cyanosis or clubbing, extremities motor strength 5/5 Skin: normal turgor; no rashes, no wound, no jaundice and no dry skin Neurologic: PERRL, EOMI, accommodation nl, no face palsy, no dysarthria Psychiatric: A+Ox3, euthymic affect Lymphatic: no cervical or axillary lymphadenopathy Results & Data ([facility]) Vital Signs (Past 12 Hours) Vital Signs Temp Pulse Resp BP Pulse Ox 09/20/20 08:01 36.7 C 45 L 18 138/62 97 09/20/20 03:59 36.7 C 60 16 127/79 96 09/19/20 23:15 36.8 C 54 L 16 127/73 96 Laboratory Results WBC 10, Hb 11, Hct 35, Platelets 274, Na 137, K 3.8, BUN 24, Cr 1.45, Plats 127, T Bili 2.4->1.5, AST 640->224, ALT 393->280, Alk Phos 216->182. Diagnostic Findings ERCP 09/19/20: - Prior biliary sphincterotomy appeared open. - A single mild biliary stricture was found in the lower third of the main bile duct. The stricture was inflammatory. - Choledocholithiasis and cholangitis was found. Complete removal was accomplished by balloon extraction. - One covered metal stent was placed into the common bile duct for stricture remodeling. - Indomethacin given to decrease risk of post-ERCP pancreatitis.
[2020-09-20 14:01] VITALS: PULSE 61
--- NOTE | 2020-09-20 15:02 | Electrocardiogram Report ---
Test Reason : Blood Pressure : / mmHG Vent. Rate : 074 BPM Atrial Rate : 074 BPM P-R Int : 168 ms QRS Dur : 076 ms QT Int : 430 ms P-R-T Axes : 010 062 052 degrees QTc Int : 477 ms Normal sinus rhythm Normal ECG When compared with ECG of 08-JUL-2020 13:59, No significant change was found Confirmed by Lele Hernandez ([id number]) on 09/20/2020 3:02:21 PM Referred By: REFERRED SELF Confirmed By:Lele Hernandez
[2020-09-20] MEDS ORDERED: CIPROFLOXACIN 250 MG TAB PO SCH (21:00)
== END 2020-09-20 15:38 | disposition home or self-care (01) ==
LOC: ED 03:00 → INTOOBSV 06:28 → 3N 06:28 → SUATTDRO 06:28 → 3N 07:34
DX: K80.30 Calculus of bile duct with cholangitis, unspecified, without obstruction; Z66 Do not resuscitate; Z79.899 Other long term (current) drug therapy; Z20.828 Contact with and (suspected) exposure to other viral communicable diseases; Z88.8 Allergy status to other drugs, medicaments and biological substances; I10 Essential (primary) hypertension; Z79.84 Long term (current) use of oral hypoglycemic drugs; H90.5 Unspecified sensorineural hearing loss; Z88.2 Allergy status to sulfonamides; Z91.030 Bee allergy status; E11.9 Type 2 diabetes mellitus without complications; E78.5 Hyperlipidemia, unspecified; K21.9 Gastro-esophageal reflux disease without esophagitis

== ENCOUNTER 2024-08-11 01:44 | Inpatient (IN) ==
--- NOTE | 2024-08-11 02:07 | Emergency Department Note ---
History of Present Illness General Chief complaint: Chest Pain Stated complaint: CHEST PAIN Time Seen by Provider: 08/11/24 01:52 Source: patient, family ( who is at the bedside), RN notes reviewed and old records reviewed (Primary care office visit for wellness and ) Mode of arrival: ambulatory Limitations: no limitations History of Present Illness Maximum Pain Intensity: 5 This patient 89-year-old female comes in with chest pain for 1 hour she took 2 aspirins at home no radiation slight short of breath that is pleuritic. I ask if she needed pain medication she did denied. No fever chills . no cough. no nausea vomiting .no fall or trauma .no back pain no dysuria. She tells me she has had her gallbladder out. Home Medications Medication Instructions Recorded Confirmed Type vit C,E,zinc,copper-nphqq0l 250 1 cap PO DAILY 07/12/20 08/11/24 History mg-lutein 5 mg-zeaxanthin 1 mg capsule (Ocuvite Adult 50 Plus) flaxseed oil 1,000 mg capsule 1,000 mg PO DAILY 12/31/21 08/11/24 History blood sugar diagnostic #100 ea 02/20/22 08/11/24 Rx nitroglycerin 0.4 mg sublingual 0.4 mg sublingual Q5M PRN chest 01/05/23 08/11/24 Rx tablet pain #60 tabs amlodipine 5 mg tablet 5 mg PO DAILY #90 tabs 12/10/23 08/11/24 Rx atenolol 25 mg tablet 25 mg PO DAILY #90 tabs 12/10/23 08/11/24 Rx blood sugar diagnostic (OneTouch #300 ea 12/10/23 08/11/24 Rx Ultra Test strips) metformin 500 mg tablet,extended 500 mg PO BID #180 tabs 12/10/23 08/11/24 Rx release 24 hr Allergies Allergy/AdvReac Type Severity Reaction Status Date / Time bee venom protein (honey bee) Allergy Intermediate HIVES Verified 02/18/24 09:00 Sulfa (Sulfonamide Allergy Unknown . Verified 02/18/24 09:00 Antibiotics) lisinopril Allergy COUGH Verified 02/18/24 09:00 Past Med/Surg History Problem List (Updated 08/11/24 @ 05:41 by Rocky Brasher MD) Elevated troponin (Acute) Chest pain (Acute) History of breast cancer 2017, reoccurrence 2019 with lumpectomy Refusal of statin medication by patient Wears hearing aid in both ears Resound [id number] BTE-RUBY dispensed 07/15/19. Staph skin infection Skin lesion of face Chest pain Abnormal EKG Fatigue Gout (Acute) Sensorineural hearing loss (SNHL) of both ears Hypokalemia CKD (chronic kidney disease), stage III Metatarsalgia of both feet Sensorineural hearing loss (SNHL) Peripheral neuropathy (Chronic) Chronic reflux esophagitis (Chronic) Hyperlipidemia (Chronic) refuses medication Hypertension (Chronic) Diabetes (Chronic) Medical History Choledocholithiasis Gallstone pancreatitis Encounter for pre-operative examination Choledocholithiasis Hematuria CHRISTOPHER (acute kidney injury) Choledocholithiasis DVT prophylaxis Acute pancreatitis Epigastric abdominal pain Acute pancreatitis Acid reflux disease Diabetes Acid reflux Breast cancer, right breast Hypertension Surgical History History of appendectomy H/O right breast biopsy 20 years ago - benign Status post excisional biopsy Bilateral excisional biopsies - benign Status post right breast lumpectomy 2017 and then 2019 for a recurrence SLN biopsy as well Hx of cataract surgery Only right eye History of cholecystectomy H/O total hysterectomy with bilateral salpingo-oophorectomy (BSO) Family History Mother , 68yo; Stroke Hypertension Father , at 52yo; Heart disease Smoker Sister Hypertension COPD (chronic obstructive pulmonary disease) CHF (congestive heart failure) Obesity Sister Diabetes 1.5, managed as type 1 Hypertension Paget's disease Son Myocardial infarction History of heart artery stent Tongue cancer Lyme disease Bipolar affect, depressed Son Brain cancer Daughter Leukemia Cervical cancer Denies family history of Ovarian cancer Prostate cancer Breast cancer Colorectal cancer Social History Smoking Status: Never smoker Second Hand Exposure: No; Do You Dip or Chew Tobacco: No; Hx Alcohol Use: No Hx Substance Use: No Preferred Language: Serbian Communication Ability: Effective Visual Impairment: No Limitations Hearing Ability: Use of Hearing Aid Youth Liaison Officer Required: No Beliefs That Will Affect Care: None marital status: Current Living Situation: Spouse current occupational status: 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 How many Children do You have: 3 Feels Safe at Home: Yes Childhood Exposure to Second-Hand Smoke: Yes Diet: regular caffeine: Yes (3 cups/day) during the past year weight has: remained stable Dental Care, Regularly: Yes Physical Activity Frequency: Daily Seatbelt Use: always Sunscreen Use: No Assistive Devices: Glasses and Hearing Aid - Bilateral Review of Systems A total of 10 systems reviewed and were otherwise negative Physical Exam Vital Signs Vital Signs - 24 hr 08/11/24 01:48 08/11/24 01:54 08/11/24 02:00 Temperature 36.5 C Temperature Source Temporal Artery Scan Pulse Rate 84 91 H 85 Pulse Rate [Apical] Pulse Rate from SpO2 Sensor 80 Pulse Rhythm [Apical] Pulse Strength [Apical] Respiratory Rate 19 17 Respiratory Effort / Characteristics Respiratory Depth Respiratory Pattern Blood Pressure 201/96 H 194/92 H Blood Pressure [Right Arm] Blood Pressure Mean 131 126 Blood Pressure Mean [Right Arm] Blood Pressure Position [Right Arm] Pulse Oximetry 99 99 Oxygen Delivery Method Room Air Room Air Sepsis Recent Fever Within 48 Hours No Sepsis New/Unexplained Change in Mental Status N/A Sepsis Action Taken by Nursing No Action Required 08/11/24 02:30 08/11/24 03:00 08/11/24 03:30 Temperature Temperature Source Pulse Rate 78 Pulse Rate [Apical] 84 89 Pulse Rate from SpO2 Sensor 81 Pulse Rhythm [Apical] Regular Regular Pulse Strength [Apical] Normal Respiratory Rate 17 18 17 Respiratory Effort / Characteristics Non-Labored Spontaneous Non-Labored Spontaneous Respiratory Depth Normal Normal Respiratory Pattern Regular Regular Blood Pressure 175/79 H Blood Pressure [Right Arm] 171/81 H 157/77 H Blood Pressure Mean 111 Blood Pressure Mean [Right Arm] 111 103 Blood Pressure Position [Right Arm] Lying Sitting Pulse Oximetry 99 98 98 Oxygen Delivery Method Room Air Room Air Room Air Sepsis Recent Fever Within 48 Hours Sepsis New/Unexplained Change in Mental Status Sepsis Action Taken by Nursing 08/11/24 05:00 08/11/24 05:00 Temperature Temperature Source Pulse Rate 79 81 Pulse Rate [Apical] Pulse Rate from SpO2 Sensor 79 Pulse Rhythm [Apical] Pulse Strength [Apical] Respiratory Rate 20 18 Respiratory Effort / Characteristics Respiratory Depth Respiratory Pattern Blood Pressure 149/88 H 149/88 H Blood Pressure [Right Arm] Blood Pressure Mean 108 100 Blood Pressure Mean [Right Arm] Blood Pressure Position [Right Arm] Pulse Oximetry 98 97 Oxygen Delivery Method Room Air Room Air Sepsis Recent Fever Within 48 Hours Sepsis New/Unexplained Change in Mental Status Sepsis Action Taken by Nursing General: Well developed well nourished [id number] older female who appears in no acute distress, breathing comfortably on room air. Normal speech HEENT: Normal cephalic atraumatic. Pupils are equal round and reactive to light. Extraocular movements are intact. Oropharynx is pink with moist mucous membranes. No swelling of the mouth lips or tongue. Neck: Supple with a midline trachea. No meningeal signs or stiffness, no JVD or bruits. No Stridor. Chest: Clear to auscultation bilaterally. No wheezes or rhonchi. No increased work of breathing. Heart: Regular rate and rhythm without murmurs or gallops. Abdomen: Soft, moderately reproducibly tender in the epigastric area, nondistended without rebound guarding or rigidity. Extremities: No cyanosis clubbing or edema. No calf tenderness or assymetry Spine/Back. Non tender to palpation. No CVA tenderness Skin: Good turgor without rashes. Neurologic exam: Cranial nerves two through 12 are intact. Motor and sensation are intact and symmetrical throughout. Course Administered Medications Discontinued Medications Ioversol (Optiray 320 125ml) 125 ml IV ONCE ONE Stop: 08/11/24 03:50 Last Admin: 08/11/24 03:49 Dose: 118 ml Documented By: CHANCE Nitroglycerin (Nitroglycerin Sl 0.4 Mg/Tab Tab) 0.4 mg SL NOW STA Stop: 08/11/24 02:46 Last Admin: 08/11/24 03:01 Dose: 0.4 mg Documented By: MACIE Nitroglycerin (Nitroglycerin Sl 0.4 Mg/Tab Tab) 0.4 mg SL NOW STA Stop: 08/11/24 03:14 Last Admin: 08/11/24 03:25 Dose: 0.4 mg Documented By: MACIE Potassium Chloride (Potassium Chloride Crtab 20 Meq Tabcr) 20 meq PO NOW STA Stop: 08/11/24 04:30 Last Admin: 08/11/24 04:45 Dose: 20 meq Documented By: MACIE Medical Decision Making Differential Diagnosis Acute coronary syndrome, arrhythmia, pancreatitis, gallbladder disease, electrolyte or metabolic abnormality, infection, sepsis, GI illness Medical Records Attestation: I reviewed the patient's medical records. Home Medications Current Medication List: was personally reviewed by me Laboratory Data Attestation: I reviewed the patient's lab results. 08/11/24 01:55 08/11/24 01:55 Lab Results 08/11/24 08/11/24 08/11/24 Range/Units 01:55 02:13 04:18 WBC 9.52 (4.8-10.8) K/ul RBC 4.52 (4.20-5.40) M/uL Hgb 14.0 (12.0-16.0) g/dl Hct 41.1 (37.0-47.0) % MCV 90.9 (80.0-100.0) fL MCH 31.0 (25.0-34.0) pg MCHC 34.1 (32.0-36.0) g/dL RDW Std Deviation 45.3 (36.4-46.3) fL RDW Coeff of [place] 13.6 (11.5-14.5) % Plt Count 361 (130-400) K/uL MPV 10.0 (9.4-12.4) fL Immature Gran % (Auto) 0.5 % Neut % (Auto) 56.2 % Lymph % (Auto) 28.8 % [place] % (Auto) 10.0 % Eos % (Auto) 3.7 % Baso % (Auto) 0.8 % Neut # (Auto) 5.35 (1.40-6.50) K/uL Lymph # (Auto) 2.74 (1.20-3.40) K/uL [place] # (Auto) 0.95 H (0.11-0.59) K/uL Eos # (Auto) 0.35 (0.00-0.50) K/uL Baso # (Auto) 0.08 (0.00-0.20) K/uL Immature Gran # (Auto) 0.05 (0.01-0.20) K/uL D-Dimer 620 H* (0-500) ug/L FEU Sodium 138 (136-145) mmol/L Potassium 3.9 (3.5-5.1) mmol/L Chloride 101 (98-107) mmol/L Carbon Dioxide 23 (21-32) mmol/L Anion Gap 14 H (3-11) BUN 27 H (6-23) mg/dl Creatinine 1.17 (0.6-1.2) mg/dl Est Cr Clr Drug Dosing Not Reportable eGFR 45.16 BUN/Creatinine Ratio 23.1 H (10-20) Glucose 166 H (70-99(Fasting)) mg/dl Calcium 9.6 (8.6-10.3) mg/dl Total Bilirubin 0.3 (0.2-1.0) mg/dl AST 39 (13-39) U/L ALT 25 (7-52) U/L Alkaline Phosphatase 101 (34-104) U/L Troponin I High Sens 294.0 H* 322.7 H* (0-14) pg/ml Total Protein 8.3 (6.0-8.3) gm/dl Albumin 4.2 (3.4-5.0) gm/dl Globulin 4.1 H (2.5-4.0) gm/dl Albumin/Globulin Ratio 1.0 (0.9-2) Lipase 63 (11-82) U/L SARS-CoV-2, RNA, NAAT NEGATIVE (NEGATIVE) Imaging Data Attestation: I personally reviewed and interpreted this imaging study as follows: My Impression: Chest x-rayno acute infiltrate, failure, pneumothorax seen Chest CTI do not see any definite pulmonary emboli. No pneumothorax. She does have some aortic calcifications but I do not see any dissection Radiologist's Impression: Chest CTA 08/11/24 03:14 Exam(s): CTA CHEST IV Amt: 118 ML OPTIRAY 320 EXAM: CT Angiography Chest With Intravenous Contrast CLINICAL HISTORY: Reason for exam: PE. TECHNIQUE: Axial computed tomographic angiography images of the chest with intravenous contrast. CTDI is 25.19 mGy and DLP is 702.11 mGy-cm. Automated exposure control was utilized for the study. A dose lowering technique was utilized adhering to the principles of ALARA. MIP reconstructed images were created and reviewed. COMPARISON: No relevant prior studies available. FINDINGS: LUNGS: No focal consolidation, pleural effusion, or pneumothorax. Atelectasis at the lung bases. HEART: Cardiomegaly. VASCULATURE: No acute pulmonary embolism. Atherosclerotic changes of the aorta. THYROID: Within normal limits. MEDIASTINUM + LYMPH NODES: There are no pathologically enlarged mediastinal, hilar, or axillary lymph nodes. SUPERIOR ABDOMEN: Hepatic steatosis. MUSCULOSKELETAL: Degenerative changes. IMPRESSION: No acute pulmonary embolism. Electronically signed by: Raymundo Suresh MD 08/11/24 04:29 AM ECG Data Attestation: I personally reviewed and interpreted this ECG as follows: Indication: + abdominal pain Rate (beats per minute): 89 Rhythm: + sinus with SA ECG Intervals/blocks: + Normal QRS, + Normal QT and + Normal AL ECG [place]: + Normal ECG ST segments: + Normal ST segments ECG Findings: + PACs; no PVCs Comparison ECG Date: from (09/19/2020) Change: no significant change Additional Comments: EKG #2: Normal sinus rhythm with a rate of 83 she does have some sinus arrhythmia nonspecific ST abnormality. No definite STEMI changes no change compared EKG #1 MDM Narrative This patient comes in as described above. She was placed on a property assessment monitor and room B9. She has chest pain although on exam she is tender in the epigastric area she has a history of gallstone pancreatitis she tells me her gallbladder has been removed. IV access was established. Declined pain medication initially her EKG shows no ischemic changes or ectopy chest x-ray multiple blood testing was obtained. she was reassessed frequently. Her EKG shows no ischemic changes. Her troponin came back significant elevated over 200. D-dimer is also mildly elevated. She has no significant electrolyte or metabolic abnormalities nothing to suggest pancreatitis or liver or gallbladder disease at this point. I did repeat her EKG and there is no change. The first she was given nitro for her chest pain which did not seem to help much. She did receive second nitro when I rechecked she seems much more comfortable. CAT scan of her chest was unremarkable. I discussed at length with Dr. Mcconnell as well as the residents, this patient is case, as I do think she needs to be admitted/observed for further cardiac workup. Continuous cardiac monitoring: Orders placed in EMR for continuous property assessment monitor: Upon my evaluation patient noted to be in normal sinus rhythm with a rate of 90 Impression & Plan Chest pain, Elevated troponin Discharge Plan Visit Data Chief Complaint: Chest Pain Stated Complaint: CHEST PAIN ED Provider: Rocky Brasher Discharge Problem: Chest pain, Elevated troponin Patient Disposition: Home - Self-Care Discharge Instructions Interventions: ED Discharge Assessment Last Done: 08/11/24 05:32 Forms Stand Alone Forms: My [facility], Important Visit Information Prescriptions Prescriptions: No Action Ocuvite Adult 50 Plus 250-5-1 mg capsule 1 cap PO DAILY (DME) blood sugar diagnostic Strip See Rx Instructions .ROUTE .MEDSUPPLY Qty: 100 5RF Rx Instructions: Test blood sugar four times daily Dx:E11.9 amlodipine 5 mg tablet 5 mg PO DAILY Qty: 90 3RF atenolol 25 mg tablet 25 mg PO DAILY Qty: 90 3RF (DME) OneTouch Ultra Test Strip See Rx Instructions .Route Qty: 300 3RF Rx Instructions: Test 4 times a day E11.9 metformin 500 mg tablet extended release 24 hr 500 mg PO BID Qty: 180 3RF nitroglycerin 0.4 mg tablet, sublingual 0.4 mg sublingual Q5M PRN (Reason: chest pain) Qty: 60 3RF Rx Instructions: do not exceed 3 doses per episode flaxseed oil 1,000 mg capsule 1,000 mg PO DAILY Rx Instructions: administer with a meal Referrals Referrals: Annika Salamanca CRNP [Primary Care Provider] - Discharge Problem: Chest pain Qualifiers: Chest pain type: unspecified Qualified Code(s): R07.9 - Chest pain, unspecified
[2024-08-11 02:13] LABS: Basophils # (auto) 0.08 K/uL (0.00-0.20); Basophils % (auto) 0.8 %; Eosinophils # (auto) 0.35 K/uL (0.00-0.50); Eosinophils % (auto) 3.7 %; Hematocrit (blood only) 41.1 % (37.0-47.0); Immature Granulocytes # (auto) 0.05 K/uL (0.01-0.20); Immature Granulocytes % (auto) 0.5 %; Lymphocytes # (auto) 2.74 K/uL (1.20-3.40); Lymphocytes % (auto) 28.8 %; Mean Corpuscular Hgb Conc 34.1 g/dL (32.0-36.0); Mean Corpuscular Volume 90.9 fL (80.0-100.0); Monocytes # (auto) 0.95 K/uL (0.11-0.59); Neutrophils # (auto) 5.35 K/uL (1.40-6.50); Neutrophils % (auto) 56.2 %; Platelet Count 361 K/uL (130-400); RDW Coefficient of Variation 13.6 % (11.5-14.5); RDW Standard Deviation 45.3 fL (36.4-46.3); Red Blood Count 4.52 M/uL (4.20-5.40); White Blood Count 9.52 K/ul (4.8-10.8)
[2024-08-11 02:31] LABS: Alanine Aminotransferase 25 U/L (7-52); Albumin Level 4.2 gm/dl (3.4-5.0); Alkaline Phosphatase 101 U/L (34-104); Anion Gap 14 (3-11); Aspartate Aminotransferase 39 U/L (13-39); BUN Creatinine Ratio 23.1 (10-20); Bilirubin,Total 0.3 mg/dl (0.2-1.0); Blood Urea Nitrogen 27 mg/dl (6-23); Calcium 9.6 mg/dl (8.6-10.3); Carbon Dioxide 23 mmol/L (21-32); Chloride 101 mmol/L (98-107); Globulin 4.1 gm/dl (2.5-4.0); Glucose 166 mg/dl (70-99(Fasting)); Lipase 63 U/L (11-82); Potassium 3.9 mmol/L (3.5-5.1); Sodium 138 mmol/L (136-145); Total Protein 8.3 gm/dl (6.0-8.3)
[2024-08-11 02:57] LABS: D Dimer 620 ug/L FEU (0-500)
[2024-08-11] MEDS: NITROGLYCERIN SL 0.4 MG/TAB TAB SL STA ×2 (03:01→03:25)
--- NOTE | 2024-08-11 03:08 | History & Physical Report ---
"Date of Service August 11, 2024 Assessment & Plan (1) Elevated troponin: (2) Chest pain: (3) History of breast cancer: (4) Sensorineural hearing loss (SNHL) of both ears: (5) Hypokalemia: (6) CKD (chronic kidney disease), stage III: (7) Peripheral neuropathy: (8) Chronic reflux esophagitis: (9) Hyperlipidemia: (10) Hypertension: (11) Diabetes: Lee Ann Christenesn is an 89F w/ PMH of DM w/ peripheral neuropathy & CKD3, HTN, HLD, GERD, gout, SNHL, and breast cancer (2016 & 2018) who presented for chest discomfort. Admitted for further cardiac workup. NSTEMI | Chest Pain * EKG x 2 wnl * Troponin Elevated 294, 2hr repeat pending * CBC/CMP largely unremarkable * CXR w/o cardiomegaly/congestive change * O2 PRN, no acute need on admission * Nitroglycerin received in ED x 2 w/ subsequent CP resolution & BP drop * Tylenol/Morphine PRN for pain, no acute need on admission * Beta Rita: Atenolol at home, continue on admission * Statin: Hx of HLD, previously declined statin, agreeable now, ordered Rosuvastatin ordered * Antiplatelet: S/p Aspirin 325 at home, continue 81 mg daily, consider DAPT * Anticoagulation: Heparin DVT Ppx * K > 4 /Mg > 2 * D/c NSAIDS Chronic Conditions - HTN: continue home meds (Amlodipine/Atenolol) - HLD: encourage statin, ordered lipid profile, statin ordered - DM2 w/ neuropathy/CKD: home med held, BSG ACHS, SSI inpatient, ordered A1c - GERD/esophagitis: Omeprazole at home, Pantoprazole IV inpatient Code: DNR/DNI Diet: NPO DVT: Heparin Dispo: Med/Tele History of Present Illness Chief Complaint: CHest Pain Primary Care Provider: PABLO Arenas Amparo is an 89F w/ PMH of DM w/ peripheral neuropathy & CKD3, HTN, HLD, GERD, gout, SNHL, and breast cancer (2017 & 2018) who presented for chest discomfort. ED: Nitroglycerin x 2 HPI: 12:30 AM had walked downstairs to the bathroom and started experiencing ce ntral (substernal) sharp chest pain w/o radiation or burning. Pain persistent w/o relief to 1 AM, so she took Aspirin 325 and brought her to the hospital. Patient denies dyspnea, neck/jaw pain, arm pain, diaphoresis, nausea, vomiting or abdominal discomfort. She notes no headache, lightheadedness, or vision changes. Patient continues to take home BP medications w/o change. Patient checked BSG at onset and it was 140. Patient has not had any recent URI sx, dysuria, or bowel changes. She is independent at baseline and enjoys staying active doing chores around the home, states that she is always moving. Patient denies any recent dyspnea on exertion, orthopnea, claudication, or lower extremity edema. Patient denies history of CAD/CT/CHF but has Nitroglycerin at home PRN. Did not take prior to arrival. Allergies Allergy/AdvReac Type Severity Reaction Status Date / Time bee venom protein (honey bee) Allergy Intermediate HIVES Verified 02/18/24 09:00 Sulfa (Sulfonamide Allergy Unknown . Verified 02/18/24 09:00 Antibiotics) lisinopril Allergy COUGH Verified 02/18/24 09:00 Home Medications Medication Instructions Recorded Confirmed Type vit C,E,zinc,copper-sehok1r 250 1 cap PO DAILY 07/12/20 08/11/24 History mg-lutein 5 mg-zeaxanthin 1 mg capsule (Ocuvite Adult 50 Plus) flaxseed oil 1,000 mg capsule 1,000 mg PO DAILY 12/31/21 08/11/24 History blood sugar diagnostic #100 ea 02/20/22 08/11/24 Rx nitroglycerin 0.4 mg sublingual 0.4 mg sublingual Q5M PRN chest 01/05/23 08/11/24 Rx tablet pain #60 tabs amlodipine 5 mg tablet 5 mg PO DAILY #90 tabs 12/10/23 08/11/24 Rx atenolol 25 mg tablet 25 mg PO DAILY #90 tabs 12/10/23 08/11/24 Rx blood sugar diagnostic (OneTouch #300 ea 12/10/23 08/11/24 Rx Ultra Test strips) metformin 500 mg tablet,extended 500 mg PO BID #180 tabs 12/10/23 08/11/24 Rx release 24 hr Past Med/Surg History Problem List (Updated 08/11/24 @ 10:18 by Luiz Bryant PA-C) NSTEMI, initial episode of care Elevated troponin (Acute) Chest pain (Acute) History of breast cancer 2017, reoccurrence 2019 with lumpectomy Refusal of statin medication by patient Wears hearing aid in both ears Resound [id number] dispensed 07/15/19. Staph skin infection Skin lesion of face Chest pain Abnormal EKG Fatigue Gout (Acute) Sensorineural hearing loss (SNHL) of both ears Hypokalemia CKD (chronic kidney disease), stage III Metatarsalgia of both feet Sensorineural hearing loss (SNHL) Peripheral neuropathy (Chronic) Chronic reflux esophagitis (Chronic) Hyperlipidemia (Chronic) refuses medication Hypertension (Chronic) Diabetes (Chronic) Medical History Choledocholithiasis Gallstone pancreatitis Encounter for pre-operative examination Choledocholithiasis Hematuria CHRISTOPHER (acute kidney injury) Choledocholithiasis DVT prophylaxis Acute pancreatitis Epigastric abdominal pain Acute pancreatitis Acid reflux disease Diabetes Acid reflux Breast cancer, right breast Hypertension Surgical History History of appendectomy H/O right breast biopsy 20 years ago - benign Status post excisional biopsy Bilateral excisional biopsies - benign Status post right breast lumpectomy 2017 and then 2019 for a recurrence SLN biopsy as well Hx of cataract surgery Only right eye History of cholecystectomy H/O total hysterectomy with bilateral salpingo-oophorectomy (BSO) Family History Mother , 68yo; Stroke Hypertension Father , at 52yo; Heart disease Smoker Sister Hypertension COPD (chronic obstructive pulmonary disease) CHF (congestive heart failure) Obesity Sister Diabetes 1.5, managed as type 1 Hypertension Paget's disease Son Myocardial infarction History of heart artery stent Tongue cancer Lyme disease Bipolar affect, depressed Son Brain cancer Daughter Leukemia Cervical cancer Denies family history of Ovarian cancer Prostate cancer Breast cancer Colorectal cancer Social History Smoking Status: Never smoker Second Hand Exposure: No; Do You Dip or Chew Tobacco: No; Hx Alcohol Use: No Hx Substance Use: No Preferred Language: Iraqi Communication Ability: Effective Visual Impairment: No Limitations Hearing Ability: Use of Hearing Aid Senior It Auditor Required: No Beliefs That Will Affect Care: None marital status: Current Living Situation: Spouse Current Living Situation Comment: lives with and son current occupational status: retired current occupation: [employer] How many Children do You have: 3 Other Information That Helps Us Care for You: No Feels Safe at Home: Yes Safety Concerns: Feels Safe At This Time Childhood Exposure to Second-Hand Smoke: Yes Diet: regular caffeine: Yes (3 cups/day) during the past year weight has: remained stable Dental Care, Regularly: Yes Physical Activity Frequency: Daily Seatbelt Use: always Sunscreen Use: No Assistive Devices: Denture - Upper, Denture - Lower and Hearing Aid - Bilateral Physical Exam Physical Exam: Gen: NAD, alert, interactive, SNHL HEENT: Supple, no LAD, no thyromegaly, no JVD Resp:Non-labored, no wheezing/rhonchi/rales, CTAB CV:RRR, loud S1/normal S2, no M/R/G Abd: Soft, non-distended, epigastric TTP, normoactive bowels, no masses Extr: 2+ dp bilaterally, no edema, significant lower extremity varicosities Skin: No rashes lesions or erythema Results & Data Results & Data Vital Signs (Past 12 Hours) Vital Signs Temp Pulse Resp BP Pulse Ox O2 Del Method 08/11/24 01:54 91 H 08/11/24 01:48 36.5 C 84 19 201/96 H 99 Room Air Supervising Physician Co-Signing Physician Notes Attending addendum: I have physically seen this patient, have supervised the medical residents activities, and agree with the H&P unless as otherwise noted. Assessment and Plan: Elevated troponin/NSTEMI/chest pain/hypertension- The patient will be admitted to telemetry for serial cardiac enzymes, serial EKG's, cardiac rhythm monitoring and a 2-D echocardiogram with Dopplers. EKG with normal sinus rhythm, no acute ST-T changes, with sinus arrhythmia, no change when compared to 09/19/2020 Troponin 94, with 2-hour repeat pending. If repeat is elevated, will place on heparin infusion at that time Patient did have relief of chest discomfort with sublingual nitroglycerin Continue atenolol, amlodipine Continue nitroglycerin sublingual every 5 minutes. Chest pain Acetaminophen 650 mg by mouth every 6 hours as needed for mild pain or fever Morphine sulfate IV as needed moderate to severe pain as noted Consult cardiology Hyperlipidemia- Patient has history of elevated cholesterol, but reportedly had been resistant to starting statin, which she agrees to at this time Check a fasting lipid panel Diabetes mellitus- Hold metformin Placed on Accu-Cheks with NovoLog SSI as noted Check hemoglobin A1c GERD- Changing from omeprazole orally to pantoprazole IV while inpatient Resident Activity Tracking Resident Involvement: Resident Care Provided Care Provided: Adult [facility] Medicine (2) Chest pain Chest pain type: unspecified Qualified Code(s): R07.9 - Chest pain, unspecified (6) CKD (chronic kidney disease), stage III Chronic kidney disease stage 3 subtype: unspecified whether 3a or 3b Qualified Code(s): N18.30 - Chronic kidney disease, stage 3 unspecified (9) Hyperlipidemia Hyperlipidemia type: mixed hyperlipidemia Qualified Code(s): E78.2 - Mixed hyperlipidemia (10) Hypertension Hypertension type: essential hypertension Qualified Code(s): I10 - Essential (primary) hypertension (11) Diabetes Diabetes mellitus complication status: without complication Diabetes mellitus group home insulin use: without group home use Diabetes mellitus type: type 2 Qualified Code(s): E11.9 - Type 2 diabetes mellitus without complications"
[2024-08-11] MEDS: OPTIRAY 320 125ml IV ONE (03:49)
--- NOTE | 2024-08-11 04:29 | CT Scan Report ---
Exam(s): CTA CHEST IV Amt: 118 ML OPTIRAY 320 EXAM: CT Angiography Chest With Intravenous Contrast CLINICAL HISTORY: Reason for exam: PE. TECHNIQUE: Axial computed tomographic angiography images of the chest with intravenous contrast. CTDI is 25.19 mGy and DLP is 702.11 mGy-cm. Automated exposure control was utilized for the study. A dose lowering technique was utilized adhering to the principles of ALARA. MIP reconstructed images were created and reviewed. COMPARISON: No relevant prior studies available. FINDINGS: LUNGS: No focal consolidation, pleural effusion, or pneumothorax. Atelectasis at the lung bases. HEART: Cardiomegaly. VASCULATURE: No acute pulmonary embolism. Atherosclerotic changes of the aorta. THYROID: Within normal limits. MEDIASTINUM + LYMPH NODES: There are no pathologically enlarged mediastinal, hilar, or axillary lymph nodes. SUPERIOR ABDOMEN: Hepatic steatosis. MUSCULOSKELETAL: Degenerative changes. IMPRESSION: No acute pulmonary embolism. Electronically signed by: Raymundo Suresh MD 08/11/24 04:29 AM
[2024-08-11] MEDS: POTASSIUM CHLORIDE CRTAB 20 MEQ TABCR PO STA (04:45)
[2024-08-11] MEDS ORDERED: GLUCOSE 40% GEL 15 GM TUBE PO PRN (05:53)
[2024-08-11] MEDS ORDERED: ACETAMINOPHEN 500 MG TAB PO PRN (05:53)
[2024-08-11] MEDS ORDERED: GLUCAGON FOR INJ 1 MG VIAL SQ PRN (05:53)
[2024-08-11] MEDS ORDERED: DEXTROSE 50% 50 ML SYRINGE IV PRN (05:53)
[2024-08-11] MEDS ORDERED: MoRPHine SULFATE 2 MG/ML CARP IV PRN (05:53)
[2024-08-11] MEDS ORDERED: CARBOHYDRATES FOR HYPOGLYCEMIA PO PRN (05:53)
[2024-08-11] MEDS ORDERED: GLUCOSE 10 TAB/TUBE PO PRN (05:53)
[2024-08-11] MEDS ORDERED: ONDANSETRON INJ 2 MG/ML 2 ML VIAL IV PRN (05:53)
[2024-08-11] MEDS ORDERED: Nursing to Pharmacy Communication SCH ×2 (06:30→17:15)
[2024-08-11] MEDS: amLODIPine BESYLATE 5 MG TAB PO SCH (06:34)
[2024-08-11] MEDS: PANTOprazole 40 MG in SYRINGE 0 ML IV SCH (06:34)
[2024-08-11] MEDS: INSULIN ASPART PER UNIT CHARGE SC SCH ×2 (06:42→18:31)
--- NOTE | 2024-08-11 06:49 | XRay Report ---
XR chest 1V portable CLINICAL HISTORY: Chest pain, nonspecific COMPARISON STUDY: Chest radiograph July 10, 2020. Chest CT May 07, 2016. FINDINGS: Lung volumes are normal. Lungs are clear. There is no pneumothorax or pleural effusion. Car diac size is stable. Mediastinal contours are normal. There is no evidence for pulmonary edema. IMPRESSION: No acute cardiopulmonary findings. No change in appearance of the chest. ACT 112: Negative or not required by law. Electronically signed by: Jensen Royal M.D. 08/11/2024 6:48 AM
[2024-08-11] MEDS ORDERED: INSULIN ASPART PER UNIT CHARGE SC SCH (07:30)
[2024-08-11] MEDS: ROSUVASTATIN CALCIUM 10 MG TAB PO SCH (08:32)
[2024-08-11] MEDS: ATENOLOL 25 MG TABLET PO SCH (08:32)
[2024-08-11] MEDS: ASPIRIN 81 MG ECTAB PO SCH (08:33)
[2024-08-11] MEDS: HEPARIN SOD 5,000 UNIT/0.5 ML VIAL SQ SCH (08:33)
--- NOTE | 2024-08-11 10:03 | Cardiology Consultation ---
Date of Consultation August 11, 2024 Assessment & Plan (1) NSTEMI, initial episode of care: (2) Elevated troponin: (3) Hypertension: (4) Hyperlipidemia: Plan Mrs. Cedillo is an 89 year old female with a history of Type 2 Diabetes Mellitus, Hypertension, Hypercholesterolemia, Stage 3 CKD, Moderate Mitral Regurgitation, GERD, Chronic Reflux Esophagitis, and Breast Cancer who presented in the child care specialist hours today after the onset of a squeezing chest pain. Patient was in her usual state of health, went downstairs to to use the bathroom when she had the onset of this squeezing/grabbing chest pain which was present at variable degrees of severity, it did not radiate, and she may have had a mild degree of associated dyspnea. She denies any associated nausea, vomiting, or diaphoresis. Patient feels that her symptoms lasted for up to 30 minutes. She took 2 aspirin, and her brought her into the ER. Her discomfort did not get worse with exertion nor did improve with rest. She denies any increase in her chest pain with breathing or coughing Both EKG's show sinus rhythm with premature atrial contractions and a nonspecific ST abnormality, her initial troponin I was elevated at 294.0 with subsequent values being 322.7, 404.8, and is up to 573.7 pg/mL. Chest x-ray shows no acute processes. CTA Lungs shows cardiomegaly, no evidence of pulmonary edema, no evidence of pulmonary embolism. Otherwise workup shows a normal white blood cell count, hemoglobin is 14.0 g/dL, hematocrit is 41.1%, platelet count 361,000. Sodium 138 mmol/L, potassium 3.9 mmol/L, BUN 27 with a creatinine of 1.17 mg/dL. Blood sugar elevated at 166 mg/dL. Fasting lipid panel is pending. Please note that the patient underwent a Dobutamine Stress Echo 01/07/2023 which showed no evidence of myocardial ischemia. Baseline echocardiogram showed normal LV systolic function, LVEF 65% to 70%, mild concentric LVH, normal RV size and systolic function, moderate mitral regurgitation, and a moderately dilated left atrium. Patient is currently being seen in room 277-2, and she is currently asymptomatic. Patient has multiple cardiac risk factors as noted above, the way her high sensitivity troponin I is trending her presentation most likely represents an NSTEMI. However, on echocardiogram her LV systolic function is normal without regional wall motion abnormalities. LVEF is 55% to 60%. We discussed the possibility of more aggressive and invasive cardiac workup however considering her advanced age and chronic kidney disease she is at higher risk for contrast nephropathy if we were to do a cardiac catheterization. We also discussed the option of medically managing her cardiac event, placing her on the appropriate guideline directed medical therapy and evaluate for any recurrent symptoms. I think the conservative approach is most appropriate in her case. Recommend the followin. Continue Atenolol 25 mg daily, titrate dose as necessary. 2. Continue Aspirin 81 mg daily. 3. Continue Crestor 10 mg daily provided the patient does not have side effects. If she develops statin myopathy or elevation of liver enzymes, can convert over to a different statin or to Repatha. 4. Consider adding an ACEI or ARB, we will need to monitor her renal function. 5. Give SL Nitroglycerin 0.4 mg every 5 minutes x 3 doses as needed for chest pain. If no relief after 3rd dose, call 911. 6. Maintain a low-sodium diet. We will continue to follow this patient while hospitalized, and we will be glad to see her following discharge. Patient agrees with this plan. All of her questions were answered to her satisfaction. History of Present Illness Reason for Consultation: -- NSTEMI. Requesting Physician: Fermin Mitchell DO Attending Physician: Flako Ryan MD History of Present Illness Mrs. Cedillo is an 89 year old female with a history of Type 2 Diabetes Mellitus, Hypertension, Hypercholesterolemia, Stage 3 CKD, Moderate Mitral Regurgitation, GERD, Chronic Reflux Esophagitis, and Breast Cancer who presented in the child care specialist hours today after the onset of a squeezing chest pain. Patient was in her usual state of health, went downstairs to to use the bathroom when she had the onset of this squeezing/grabbing chest pain which was present at variable degrees of severity, it did not radiate, and she may have had a mild degree of associated dyspnea. She denies any associated nausea, vomiting, or diaphoresis. Patient feels that her symptoms lasted for up to 30 minutes. She took 2 aspirin, and her brought her into the ER. Her discomfort did not get worse with exertion nor did improve with rest. She denies any increase in her chest pain with breathing or coughing Both EKG's show sinus rhythm with premature atrial contractions and a nonspecific ST abnormality, her initial troponin I was elevated at 294.0 with subsequent values being 322.7, 404.8, and is up to 573.7 pg/mL. Chest x-ray shows no acute processes. CTA Lungs shows cardiomegaly, no evidence of pulmonary edema, no evidence of pulmonary embolism. Otherwise workup shows a normal white blood cell count, hemoglobin is 14.0 g/dL, hematocrit is 41.1%, platelet count 361,000. Sodium 138 mmol/L, potassium 3.9 mmol/L, BUN 27 with a c reatinine of 1.17 mg/dL. Blood sugar elevated at 166 mg/dL. Fasting lipid panel is pending. Please note that the patient underwent a Dobutamine Stress Echo 01/07/2023 which showed no evidence of myocardial ischemia. Baseline echocardiogram showed normal LV systolic function, LVEF 65% to 70%, mild concentric LVH, normal RV size and systolic function, moderate mitral regurgitation, and a moderately dilated left atrium. Patient is currently being seen in room 277-2, and she is currently asymptomatic. ECHOCARDIOGRAM 08/11/2024: 1. Normal LV systolic function. 2. No regional wall motion abnormalities. 3. LVEF 55% to 60%. 4. Moderate concentric LVH. 5. Compared to study dated 01/07/2023; No significant change. Allergies Allergy/AdvReac Type Severity Reaction Status Date / Time bee venom protein (honey bee) Allergy Intermediate HIVES Verified 02/18/24 09:00 Sulfa (Sulfonamide Allergy Unknown . Verified 02/18/24 09:00 Antibiotics) lisinopril Allergy COUGH Verified 02/18/24 09:00 Home Medications Medication Instructions Recorded Confirmed Type vit C,E,zinc,copper-wraqb4b 250 1 cap PO DAILY 07/12/20 08/11/24 History mg-lutein 5 mg-zeaxanthin 1 mg capsule (Ocuvite Adult 50 Plus) flaxseed oil 1,000 mg capsule 1,000 mg PO DAILY 12/31/21 08/11/24 History blood sugar diagnostic #100 ea 02/20/22 08/11/24 Rx nitroglycerin 0.4 mg sublingual 0.4 mg sublingual Q5M PRN chest 01/05/23 08/11/24 Rx tablet pain #60 tabs amlodipine 5 mg tablet 5 mg PO DAILY #90 tabs 12/10/23 08/11/24 Rx atenolol 25 mg tablet 25 mg PO DAILY #90 tabs 12/10/23 08/11/24 Rx blood sugar diagnostic (OneTouch #300 ea 12/10/23 08/11/24 Rx Ultra Test strips) metformin 500 mg tablet,extended 500 mg PO BID #180 tabs 12/10/23 08/11/24 Rx release 24 hr Patient History Medical History Choledocholithiasis Gallstone pancreatitis Encounter for pre-operative examination Choledocholithiasis Hematuria CHRISTOPHER (acute kidney injury) Choledocholithiasis DVT prophylaxis Acute pancreatitis Epigastric abdominal pain Acute pancreatitis Acid reflux disease Diabetes Acid reflux Breast cancer, right breast Hypertension Surgical History History of appendectomy H/O right breast biopsy 20 years ago - benign Status post excisional biopsy Bilateral excisional biopsies - benign Status post right breast lumpectomy 2016 and then 2018 for a recurrence SLN biopsy as well Hx of cataract surgery Only right eye History of cholecystectomy H/O total hysterectomy with bilateral salpingo-oophorectomy (BSO) Family History Mother , 68yo; Stroke Hypertension Father , at 52yo; Heart disease Smoker Sister Hypertension COPD (chronic obstructive pulmonary disease) CHF (congestive heart failure) Obesity Sister Diabetes 1.5, managed as type 1 Hypertension Paget's disease Son Myocardial infarction History of heart artery stent Tongue cancer Lyme disease Bipolar affect, depressed Son Brain cancer Daughter Leukemia Cervical cancer Denies family history of Ovarian cancer Prostate cancer Breast cancer Colorectal cancer Social History Smoking Status: Never smoker Second Hand Exposure: No; Do You Dip or Chew Tobacco: No; Hx Alcohol Use: No Hx Substance Use: No Preferred Language: Mohawk Communication Ability: Effective Visual Impairment: No Limitations Hearing Ability: Use of Hearing Aid Paraffin Plant Operator Required: No Beliefs That Will Affect Care: None marital status: Current Living Situation: Spouse Current Living Situation Comment: lives with and son current occupational status: 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 Physical Exam Physical Exam: GENERAL: Patient in no acute distress. HEENT: Head is atraumatic, normocephalic. EOM's intact. Facies symmetric. No perioral cyanosis. NECK: No JVD. JVP is not elevated. Carotid upstrokes are + 2 bilaterally without bruits. CHEST/LUNGS: Clear to auscultation throughout all lung bush. No wheezes, rales, or crackles. CVS: S1 and S2 are regular with a grade 1/6 apical systolic murmur. No diastolic murmurs. No gallops or rubs. PMI is nonpalpable. No lifts, heaves, or thrills. No abdominal aortic or renal bruits. ABDOMINAL EXAM: Bowel sounds are present. EXTREMITIES: No clubbing or cyanosis. No edema. NEUROLOGIC EXAM: Patient is awake, alert, and oriented. Pleasant and cooperative. Answers questions appropriately. Speech is clear. ECHOCARDIOGRAM is pending. 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 Results & Data Vital Signs (Past 12 Hours) Vital Signs Temp Pulse Pulse Pulse Resp BP BP 08/11/24 09:08 66 18 165/74 H 08/11/24 08:01 36.5 C 66 20 08/11/24 07:02 81 08/11/24 06:20 36.6 C 77 18 08/11/24 06:08 77 08/11/24 05:00 81 18 149/88 H 08/11/24 05:00 79 20 149/88 H 08/11/24 03:30 89 17 08/11/24 03:00 84 18 08/11/24 02:30 78 17 175/79 H 08/11/24 02:00 85 17 194/92 H 08/11/24 01:54 91 H 08/11/24 01:48 36.5 C 84 19 201/96 H BP Pulse Ox O2 Del Method 08/11/24 09:08 96 Room Air 08/11/24 08:01 184/68 H 98 Room Air 08/11/24 07:02 08/11/24 06:20 189/83 H 98 Room Air 08/11/24 06:08 08/11/24 05:00 97 Room Air 08/11/24 05:00 98 Room Air 08/11/24 03:30 157/77 H 98 Room Air 08/11/24 03:00 171/81 H 98 Room Air 08/11/24 02:30 99 Room Air 08/11/24 02:00 99 Room Air 08/11/24 01:54 08/11/24 01:48 99 Room Air Laboratory Results Laboratory Results - last 24 hr 08/11/24 08/11/24 08/11/24 01:55 02:13 04:18 WBC 9.52 RBC 4.52 Hgb 14.0 Hct 41.1 MCV 90.9 MCH 31.0 MCHC 34.1 RDW Std Deviation 45.3 RDW Coeff of Xena 13.6 Plt Count 361 MPV 10.0 Immature Gran % (Auto) 0.5 Neut % (Auto) 56.2 Lymph % (Auto) 28.8 Park % (Auto) 10.0 Eos % (Auto) 3.7 Baso % (Auto) 0.8 Neut # (Auto) 5.35 Lymph # (Auto) 2.74 Park # (Auto) 0.95 H Eos # (Auto) 0.35 Baso # (Auto) 0.08 Immature Gran # (Auto) 0.05 D-Dimer 620 H* Sodium 138 Potassium 3.9 Chloride 101 Carbon Dioxide 23 Anion Gap 14 H BUN 27 H Creatinine 1.17 Est Cr Clr Drug Dosing Not Reportable eGFR 45.16 BUN/Creatinine Ratio 23.1 H Glucose 166 H POC Glucose Calcium 9.6 Total Bilirubin 0.3 AST 39 ALT 25 Alkaline Phosphatase 101 Troponin I High Sens 294.0 H* 322.7 H* Total Protein 8.3 Albumin 4.2 Globulin 4.1 H Albumin/Globulin Ratio 1.0 Lipase 63 SARS-CoV-2, RNA, NAAT NEGATIVE 08/11/24 08/11/24 08/11/24 06:12 06:31 08:17 WBC RBC Hgb Hct MCV MCH MCHC RDW Std Deviation RDW Coeff of Xena Plt Count MPV Immature Gran % (Auto) Neut % (Auto) Lymph % (Auto) Park % (Auto) Eos % (Auto) Baso % (Auto) Neut # (Auto) Lymph # (Auto) Park # (Auto) Eos # (Auto) Baso # (Auto) Immature Gran # (Auto) D-Dimer Sodium Potassium Chloride Carbon Dioxide Anion Gap BUN Creatinine Est Cr Clr Drug Dosing eGFR BUN/Creatinine Ratio Glucose POC Glucose 149 H 137 H Calcium Total Bilirubin AST ALT Alkaline Phosphatase Troponin I High Sens 404.8 H* D Total Protein Albumin Globulin Albumin/Globulin Ratio Lipase SARS-CoV-2, RNA, NAAT 08/11/24 08:35 WBC RBC Hgb Hct MCV MCH MCHC RDW Std Deviation RDW Coeff of Xena Plt Count MPV Immature Gran % (Auto) Neut % (Auto) Lymph % (Auto) Park % (Auto) Eos % (Auto) Baso % (Auto) Neut # (Auto) Lymph # (Auto) Park # (Auto) Eos # (Auto) Baso # (Auto) Immature Gran # (Auto) D-Dimer Sodium Potassium Chloride Carbon Dioxide Anion Gap BUN Creatinine Est Cr Clr Drug Dosing eGFR BUN/Creatinine Ratio Glucose POC Glucose Calcium Total Bilirubin AST ALT Alkaline Phosphatase Troponin I High Sens 573.7 H* D Total Protein Albumin Globulin Albumin/Globulin Ratio Lipase SARS-CoV-2, RNA, NAAT Diagnostic Findings CXR 08/11/24: FINDINGS: Lung volumes are normal. Lungs are clear. There is no pneumothorax or pleural effusion. Cardiac size is stable. Mediastinal contours are normal. There is no evidence for pulmonary edema. IMPRESSION: No acute cardiopulmonary findings. No change in appearance of the chest. CTA CHEST 08/11/24: LUNGS: No focal consolidation, pleural effusion, or pneumothorax. Atelectasis at the lung bases. HEART: Cardiomegaly. VASCULATURE: No acute pulmonary embolism. Atherosclerotic changes of the aorta. THYROID: Within normal limits. MEDIASTINUM + LYMPH NODES: There are no pathologically enlarged mediastinal, hilar, or axillary lymph nodes. SUPERIOR ABDOMEN: Hepatic steatosis. MUSCULOSKELETAL: Degenerative changes. IMPRESSION: -- No acute pulmonary embolism. Medications Administered Medication List Amlodipine Besylate (Amlodipine Besylate 5 Mg Tab) 5 mg PO DAILY BONI Stop: 09/10/24 08:59 Last Admin: 08/11/24 06:34 Dose: 5 mg Documented By: [id number] Aspirin (Aspirin 81 Mg Ectab) 81 mg PO QAM [facility] Stop: 09/10/24 08:59 Last Admin: 08/11/24 08:33 Dose: 81 mg Documented By: ISACC Atenolol (Atenolol 25 Mg Tablet) 25 mg PO DAILY BONI Stop: 09/10/24 08:59 Last Admin: 08/11/24 08:32 Dose: 25 mg Documented By: ISACC Heparin Sodium (Porcine) (Heparin Sod 5,000 Unit/0.5 Ml Vial) 5,000 units SQ Q12 [facility] Stop: 09/10/24 08:59 Last Admin: 08/11/24 08:33 Dose: Not Given Documented By: ISACC Pantoprazole Sodium 40 mg/ (Syringe) 10 mls @ 5 mls/min IV DAILY@1100 [facility] Stop: 09/10/24 06:29 Last Admin: 08/11/24 06:34 Dose: 5 mls/min Documented By: [id number] Insulin Aspart (Insulin Aspart Per Unit Charge) 0 units SC Q6 [facility] Stop: 09/10/24 06:44 Last Admin: 08/11/24 06:42 Dose: Not Given Documented By: [id number] Co-signed By: CHICA Rosuvastatin Calcium (Rosuvastatin Calcium 10 Mg Tab) 10 mg PO QAM [facility] Stop: 09/10/24 08:59 Last Admin: 08/11/24 08:32 Dose: 10 mg Documented By: ISACC Discontinued Medications Ioversol (Optiray 320 125ml) 125 ml IV ONCE ONE Stop: 08/11/24 03:50 Last Admin: 08/11/24 03:49 Dose: 118 ml Documented By: CHANCE Nitroglycerin (Nitroglycerin Sl 0.4 Mg/Tab Tab) 0.4 mg SL NOW STA Stop: 08/11/24 02:46 Last Admin: 08/11/24 03:01 Dose: 0.4 mg Documented By: MACIE Nitroglycerin (Nitroglycerin Sl 0.4 Mg/Tab Tab) 0.4 mg SL NOW STA Stop: 08/11/24 03:14 Last Admin: 08/11/24 03:25 Dose: 0.4 mg Documented By: MACIE Potassium Chloride (Potassium Chloride Crtab 20 Meq Tabcr) 20 meq PO NOW STA Stop: 08/11/24 04:30 Last Admin: 08/11/24 04:45 Dose: 20 meq Documented By: MACIE PG Care Time/CCT Total # of Minutes Spent Total Time Spent with Patient: Total time spent is greater than 50% in coordination of care (as documented) at patient's floor/unit and/or counseling patient:54 [place] [address] INT INP/OBS CARE 3/75MIN Patient Type New History Comprehensive Exam Comprehensive Medical Decision Making High Complexity Diagnoses NSTEMI, initial episode of care I21.4 Elevated troponin R79.89 Essential hypertension I10 Hypertension type: essential hypertension Mixed hyperlipidemia E78.2 Hyperlipidemia type: mixed hyperlipidemia Time Spent (min) 75 (3) Hypertension Hypertension type: essential hypertension Qualified Code(s): I10 - Essential (primary) hypertension (4) Hyperlipidemia Hyperlipidemia type: mixed hyperlipidemia Qualified Code(s): E78.2 - Mixed hyperlipidemia
--- NOTE | 2024-08-11 10:29 | Hospitalist Progress Note ---
"Date of Service August 11, 2024 Assessment & Plan (1) Elevated troponin: (2) Chest pain: (3) History of breast cancer: (4) Sensorineural hearing loss (SNHL) of both ears: (5) Hypokalemia: (6) CKD (chronic kidney disease), stage III: (7) Peripheral neuropathy: (8) Chronic reflux esophagitis: (9) Hyperlipidemia: (10) Hypertension: (11) Diabetes: Plan Amparo is an 89F w/ PMH of DM w/ peripheral neuropathy & CKD3, HTN, HLD, GERD, gout, SNHL, and breast cancer (2017 & 2019) who presented for chest discomfort. NSTEMI | Chest Pain Hx of stress test w/o sign of ischemia * EKG x 2 wnl * Troponin Elevated 573. Repeat pending. Trend to peak. * No symptoms recurrence * CXR w/o cardiomegaly/congestive change * Will add Olmesartan 20 mg * Beta Rita: Atenolol at home, change to Metoprolol succinate 25 mg * Continue Rosuvastatin; increase dose to 20 mg * Continue ASA 81 mg * K > 4 /Mg > 2 * Cardiology consulted. Will appreciate reccs. Chronic Conditions - HTN: continue home meds (Amlodipine; added Olmesartan and changed beta rita to Metoprolol) - HLD: encourage statin, ordered lipid profile, statin ordered as above - DM2 w/ neuropathy/CKD: home med held, BSG ACHS, SSI inpatient, ordered A1c - GERD/esophagitis: Omeprazole at home, Pantoprazole IV inpatient Code: DNR/DNI Diet: NPO for cath DVT: Heparin Dispo: Med/Tele Admission and Anticipated Discharge Date Admission Date: August 11, 2024 Supervising Physician Co-Signing Physician Notes I personally examined the patient and verified all borrego points of history and exam, discussed case, and agree with decision making with Dr Dumont feeling better no further chest pain vitals noted nad heent nc at mmm breathing unlabored no accessory muscles good effort skin no rashes no pallor or icterus NSTEMI - med management for now, cath if fails/refractory sx. watch inpatient until troponin peaks. otherwise as above Subjective Patient laying comfortably in bed and is AAOx3, afebrile, and is in NAD. Walked to the bathroom and back w/o recurrence of symptoms. She denies any chest pain, SOB, TAY, fevers, chills, or any other symptoms. No overnight events. Review of Systems Review of Systems: As per HPI. Physical Exam Physical Exam: Gen: NAD, alert, interactive, SNHL HEENT: Supple, no LAD, no thyromegaly, no JVD Resp:Non-labored, no wheezing/rhonchi/rales, CTAB CV:RRR, loud S1/normal S2, no M/R/G Abd: Soft, non-distended, epigastric TTP, normoactive bowels, no masses Extr: 2+ dp bilaterally, no edema, significant lower extremity varicosities Skin: No rashes lesions or erythema Results & Data Results & Data Vital Signs (Past 12 Hours) Vital Signs Temp Pulse Pulse Pulse Resp BP BP 08/11/24 09:08 66 18 165/74 H 08/11/24 08:01 36.5 C 66 20 08/11/24 07:02 81 08/11/24 06:20 36.6 C 77 18 08/11/24 06:08 77 08/11/24 05:00 81 18 149/88 H 08/11/24 05:00 79 20 149/88 H 08/11/24 03:30 89 17 08/11/24 03:00 84 18 08/11/24 02:30 78 17 175/79 H 08/11/24 02:00 85 17 194/92 H 08/11/24 01:54 91 H 08/11/24 01:48 36.5 C 84 19 201/96 H BP Pulse Ox O2 Del Method 08/11/24 09:08 96 Room Air 08/11/24 08:01 184/68 H 98 Room Air 08/11/24 07:02 08/11/24 06:20 189/83 H 98 Room Air 08/11/24 06:08 08/11/24 05:00 97 Room Air 08/11/24 05:00 98 Room Air 08/11/24 03:30 157/77 H 98 Room Air 08/11/24 03:00 171/81 H 98 Room Air 08/11/24 02:30 99 Room Air 08/11/24 02:00 99 Room Air 08/11/24 01:54 08/11/24 01:48 99 Room Air Resident Activity Tracking Resident Involvement: Resident Care Provided Care Provided: Adult Hospital Medicine (2) Chest pain Chest pain type: unspecified Qualified Code(s): R07.9 - Chest pain, unspecified (6) CKD (chronic kidney disease), stage III Chronic kidney disease stage 3 subtype: unspecified whether 3a or 3b Qualified Code(s): N18.30 - Chronic kidney disease, stage 3 unspecified (9) Hyperlipidemia Hyperlipidemia type: mixed hyperlipidemia Qualified Code(s): E78.2 - Mixed hyperlipidemia (10) Hypertension Hypertension type: essential hypertension Qualified Code(s): I10 - Essential (primary) hypertension (11) Diabetes Diabetes mellitus complication status: without complication Diabetes mellitus assisted insulin use: without assisted use Diabetes mellitus type: type 2 Qualified Code(s): E11.9 - Type 2 diabetes mellitus without complications"
--- NOTE | 2024-08-11 10:57 | XCELERA ---
[id number] [id number]
--- NOTE | 2024-08-11 11:24 | Electrocardiogram Report ---
Test Reason : Blood Pressure : */* mmHG Vent. Rate : 83 BPM Atrial Rate : 83 BPM P-R Int : 164 ms QRS Dur : 98 ms QT Int : 414 ms P-R-T Axes : 57 61 58 degrees QTcB Int : 486 ms Normal sinus rhythm with sinus arrhythmia Nonspecific ST abnormality Abnormal ECG When compared with ECG of 11-Aug-2024 01:53, (unconfirmed) Premature atrial complexes are no longer Present Confirmed by Flako Ryan ([id number]) on 08/11/2024 11:24:43 AM Referred By: REFERRED SELF Confirmed By: Flako Ryan
--- NOTE | 2024-08-11 11:24 | Electrocardiogram Report ---
Test Reason : Blood Pressure : */* mmHG Vent. Rate : 89 BPM Atrial Rate : 89 BPM P-R Int : 158 ms QRS Dur : 94 ms QT Int : 390 ms P-R-T Axes : 56 59 49 degrees QTcB Int : 474 ms Sinus rhythm with Premature atrial complexes Nonspecific ST abnormality Abnormal ECG When compared with ECG of 19-Sep-2020 03:26, Premature atrial complexes are now Present Confirmed by Flako Ryan ([id number]) on 08/11/2024 11:23:42 AM Referred By: REFERRED SELF Confirmed By: Flako Ryan
--- NOTE | 2024-08-11 18:06 | Billing Data ---
Date of Service August 11, 2024 Coding Level of Care Code 79390 SUB INP/OBS CARE MIN
[2024-08-11] MEDS: NITROGLYCERIN SL 0.4 MG/TAB TAB SL PRN (21:08)
--- NOTE | 2024-08-11 23:06 | Billing Data ---
Date of Service August 11, 2024 Coding Level of Care Code 03270 INT INP/OBS CARE
[2024-08-12] MEDS: LOSARTAN POTASSIUM 50 MG TAB PO SCH (08:36)
[2024-08-12] MEDS: ROSUVASTATIN CALCIUM 20 MG TAB PO SCH (08:36)
[2024-08-12] MEDS: METOPROLOL SUCC 25MG EXT REL TAB PO SCH (08:36)
[2024-08-12 08:56] LABS: BUN Creatinine Ratio 20.8 (10-20); Chol HDL Ratio 5.1 (0-5); Creatinine Clr Calc Pharmacy 34.1 ml/min
[2024-08-12 09:06] LABS: Estimated Average Glucose 157 mg/dl; Hemoglobin A1C 7.1 % (4.5-5.6)
--- NOTE | 2024-08-12 10:54 | Discharge Summary ---
"Date of Service August 12, 2024 Admission HPI Per Admitting Provider Amparo is an 89F w/ PMH of DM w/ peripheral neuropathy & CKD3, HTN, HLD, GERD, gout, SNHL, and breast cancer (2017 & 2019) who presented for chest discomfort. ED: Nitroglycerin x 2 HPI: 12:30 AM had walked downstairs to the bathroom and started experiencing central (substernal) sharp chest pain w/o radiation or burning. Pain persistent w/o relief to 1 AM, so she took Aspirin 325 and brought her to the hospital. Patient denies dyspnea, neck/jaw pain, arm pain, diaphoresis, nausea, vomiting or abdominal discomfort. She notes no headache, lightheadedness, or vision changes. Patient continues to take home BP medications w/o change. Patient checked BSG at onset and it was 140. Patient has not had any recent URI sx, dysuria, or bowel changes. She is independent at baseline and enjoys staying active doing chores around the home, states that she is always moving. Patient denies any recent dyspnea on exertion, orthopnea, claudication, or lower extremity edema. Patient denies history of CAD/MT/CHF but has Nitroglycerin at home PRN. Did not take prior to arrival. Admission Exam Per Admitting Provider Gen: NAD, alert, interactive, SNHL HEENT: Supple, no LAD, no thyromegaly, no JVD Resp:Non-labored, no wheezing/rhonchi/rales, CTAB CV:RRR, loud S1/normal S2, no M/R/G Abd: Soft, non-distended, epigastric TTP, normoactive bowels, no masses Extr: 2+ dp bilaterally, no edema, significant lower extremity varicosities Skin: No rashes lesions or erythema Principal Diagnosis NSTEMI Discharge Exam Gen: NAD, AAOx3 Resp:Non-labored, no wheezing/rhonchi/rales, CTAB CV:RRR, no M/R/G Abd: Soft, non-distended, epigastric TTP, normoactive bowels, no masses Extr: 2+ dp bilaterally, no edema, significant lower extremity varicosities Skin: No rashes lesions or erythema Discharge Data Allergies Allergy/AdvReac Type Severity Reaction Status Date / Time bee venom protein (honey bee) Allergy Intermediate HIVES Verified 04/18/24 09:00 Sulfa (Sulfonamide Allergy Unknown . Verified 02/18/24 09:00 Antibiotics) lisinopril Allergy COUGH Verified 02/18/24 09:00 Consultations 08/11/24 03:11 ED Decision to Admit Stat 08/11/24 08:16 Consult Cardiology Routine Ordered Studies 08/11/24 03:14 CT angio chest PE protocol Stat Hospital Course (1) Elevated troponin: (2) Chest pain: (3) History of breast cancer: (4) Sensorineural hearing loss (SNHL) of both ears: (5) Hypokalemia: (6) CKD (chronic kidney disease), stage III: (7) Peripheral neuropathy: (8) Chronic reflux esophagitis: (9) Hyperlipidemia: (10) Hypertension: (11) Diabetes: Lee Ann Christensen is an 89F w/ PMH of DM w/ peripheral neuropathy & CKD3, HTN, HLD, GERD, gout, SNHL, and breast cancer (2017 & 2019) who presented for chest discomfort. NSTEMI | Chest Pain Hx of stress test w/o sign of ischemia * EKG x 2 wnl * Troponin peaked at 1181.4 * No symptoms recurrence * CXR w/o cardiomegaly/congestive change * Suspect patient may have had an MT involving one of the smaller vessels given the smaller rise in troponins and the TTE w/o evidence of wall motion abnormality * No cath done and opted for medical management * Will discharge with ASA 81 mg, Metoprolol succinate 25 mg, Rosuvastatin 20 mg, and Olmesartan 20 mg * If chest pain were to recur, could consider catheterization then. * Discharge back home today. Total Time Total Time Spent Total Time Spent (In Minutes): As per attending attestation. Discharge Plan Discharge Items Patient Disposition: Home - Self-Care Reason For Visit: CHEST PAIN Discharge Diagnosis: NSTEMI Activity: Per Instructions section Non-emergency contact: Primary Care Provider and [employer] Machine Call non-emergency contact if: your symptoms worsen and your temperature is above 101 Follow-up/Referrals: Annika Salamanca CRNP [Primary Care Provider] - 08/16/24 10:30 am Diet: Carb Consistent or DM2, Heart Healthy and Low Sodium (2gm) Ambulatory Orders: Basic Metabolic Panel (Routine) Timeframe: 1 Week Location: Determined by Patient Ordered By: Chloé Arenas Attending Provider Instructions: You were admitted due to pain in your chest that is believed to be related to one of the smaller arteries in your heart becoming blocked. We did not do any procedures to see into the arteries in your heart, and instead began treatment with medications. We changed your Atenolol to Metoprolol succinate 25 mg to take once daily in the morning, changed your Rosuvastatin to 20 mg to take once daily, added Aspirin 81mg to take once daily, and added Olmesartan 20 mg which you should take once daily as well. If you were to experience chest pain as you did before you were admitted, and/or pain in your chest that is worse when you exert yourself, radiates down your left arm or up the left side of your neck/jaw, and is accompanied by nausea/vomiting or sweating, please come to the Emergency Department for evaluation and possibly a catheterization if necessary to see if there is any new or worsening blockages in the arteries from your heart. We advise that you follow up with your primary care provider within 1 week for your post-discharge evaluation and to repeat some labwork to check your kidney function since the addition of Olmesartan can sometimes hurt patients' kidneys. CONTACT YOUR PRIMARY CARE PROVIDER if you experience any of the following: Worsening of symptoms Fever, chills, or fatigue Difficulty following your treatment plan, or difficulty taking medications CALL 911 OR GO TO THE EMERGENCY DEPARTMENT if you experience any of the following: Sudden, severe abdominal pain or nausea/vomiting Severe chest pain, or chest pain that radiates (moves) to your jaw or arm Sudden, severe shortness of breath or difficulty breathing Thank you for allowing us to participate in your care. Pending Studies at Discharge: No Stand-Alone Forms: My [facility], Smoking Cessation Medications and DC Order Prescriptions: New aspirin 81 mg Tablet,Delayed Release (Dr/Ec) 81 mg PO QAM Qty: 30 0RF metoprolol succinate 25 mg Tablet Extended Release 24 Hr 25 mg PO QAM Qty: 30 0RF rosuvastatin 20 mg Tablet 20 mg PO QAM Qty: 30 0RF olmesartan 20 mg tablet 20 mg PO DAILY Qty: 30 0RF Continued Ocuvite Adult 50 Plus 250-5-1 mg capsule 1 cap PO DAILY (DME) blood sugar diagnostic Strip See Rx Instructions .ROUTE .MEDSUPPLY Qty: 100 5RF Rx Instructions: Test blood sugar four times daily Dx:E11.9 amlodipine 5 mg tablet 5 mg PO DAILY Qty: 90 3RF (DME) OneTouch Ultra Test Strip See Rx Instructions .Route Qty: 300 3RF Rx Instructions: Test 4 times a day E11.9 metformin 500 mg tablet extended release 24 hr 500 mg PO BID Qty: 180 3RF nitroglycerin 0.4 mg tablet, sublingual 0.4 mg sublingual Q5M PRN (Reason: chest pain) Qty: 60 3RF Rx Instructions: do not exceed 3 doses per episode flaxseed oil 1,000 mg capsule 1,000 mg PO DAILY Rx Instructions: administer with a meal Discontinued atenolol 25 mg tablet 25 mg PO DAILY Qty: 90 3RF Discharge Orders: Discharge Order (Routine); Ordered 08/12/24 Ordered By: Chloé Mann/Other Patient Handouts: Aspirin Oral Tablet, Metoprolol Extended Release Oral Tablet, Olmesartan Oral Tablet, Rosuvastatin Oral Tablet Admission Data Admit Date/Time: 08/11/24 03:54 Attending Provider: Fermin Mitchell Admit Provider: Ludmila Laura Primary Care Provider: Annika Salamanca Other Providers: Rip Nino; Flako Ryan Other Interventions: Discharge Summary Assessment (RN) Last Done: 08/12/24 11:53 Supervising Physician Co-Signing Physician Notes I personally examined the patient and verified all borrego points of history and exam, discussed case, and agree with decision making with Dr Dumont continues to feel well no further chest pain vitals noted nad heent nc at mmm breathing unlabored no accessory muscles good effort skin no rashes no pallor or icterus NSTEMI - med management for now, cath if fails/refractory sx. safe/stable for home. BMP ~1-2wks otherwise as above Resident Activity Tracking Resident Involvement: Resident Care Provided Care Provided: Adult Hospital Medicine"
[2024-08-12 11:35] VITALS: RESP 18; TEMP 98.6; O2SAT 95
[2024-08-12 11:54] VITALS: BP 184/68; PULSE 89
--- NOTE | 2024-08-12 13:17 | Cardiology Progress Note ---
Date of Service August 12, 2024 Assessment & Plan (1) NSTEMI, initial episode of care: Plan: -Agree with Mr. Bryant's assessment and plan. -Agree with discontinuation of atenolol and initiation of metoprolol succinate. -Agree with olmesartan. -Continue amlodipine. -Fortunately, no further angina pectoris with the above medication changes. -Stable for hospital discharge. (2) Elevated troponin: Plan: -High-sensitivity troponin peaked at 1181. -Echocardiogram without wall motion abnormality. (3) Hypertension: Plan: -Adequate control on current regimen. -Moderate LVH noted on echocardiogram. (4) Hyperlipidemia: Plan: -Continue rosuvastatin. Admission and Anticipated Discharge Date Admission Date: August 11, 2024 Subjective The patient is resting comfortably in bed without complaints of chest pain or dyspnea. Has been ambulatory without angina pectoris. She is anxious for hospital discharge. Physical Exam Physical Exam: In general this is a well-developed well-nourished white female in no acute distress. HEENT exam is negative. Neck reveals normal carotid upstrokes without bruits. Jugular venous pressure is flat at 90. There is no thyromegaly. Cardiovascular exam reveals a regular rhythm with distant heart sounds. No obvious murmurs. Lungs are clear without rales, rhonchi, or wheezes. Abdomen is soft without bruits. Extremities reveal intact radial artery pulses bilaterally. There is no peripheral edema. Results & Data Vital Signs (Past 12 Hours) Vital Signs Temp Pulse Pulse Pulse Resp BP BP 08/12/24 11:53 37.0 C 89 71 18 170/75 H 184/68 H 08/12/24 11:50 60 08/12/24 11:34 37.0 C 71 18 170/75 H 08/12/24 07:48 36.7 C 67 16 165/88 H 08/12/24 03:47 36.5 C 70 16 140/75 08/12/24 02:14 66 Pulse Ox O2 Del Method 08/12/24 11:53 95 08/12/24 11:50 08/12/24 11:34 95 Room Air 08/12/24 07:48 97 Room Air 08/12/24 03:47 94 Room Air 08/12/24 02:14 Diagnostic Findings library monitor is benign. PG Care Time/CCT Total # of Minutes Spent Total Time Spent with Patient: Total time spent is greater than 50% in coordination of care (as documented) at patient's floor/unit and/or counseling patient: Coding Level of Care Code 20534 SUB INP/OBS CARE 350MIN Diagnoses NSTEMI, initial episode of care I21.4 Elevated troponin R79.89 Essential hypertension I10 Hypertension type: essential hypertension Mixed hyperlipidemia E78.2 Hyperlipidemia type: mixed hyperlipidemia (3) Hypertension Hypertension type: essential hypertension Qualified Code(s): I10 - Essential (primary) hypertension (4) Hyperlipidemia Hyperlipidemia type: mixed hyperlipidemia Qualified Code(s): E78.2 - Mixed hyperlipidemia
--- NOTE | 2024-08-12 14:26 | Electrocardiogram Report ---
Test Reason : Blood Pressure : */* mmHG Vent. Rate : 70 BPM Atrial Rate : 70 BPM P-R Int : 166 ms QRS Dur : 96 ms QT Int : 436 ms P-R-T Axes : -18 42 27 degrees QTcB Int : 470 ms Poor data quality, interpretation may be adversely affected Sinus rhythm with Premature atrial complexes Otherwise normal ECG When compared with ECG of 11-Aug-2024 02:47, Premature atrial complexes are now Present Confirmed by Flako Ryan ([id number]) on 08/12/2024 2:26:27 PM Referred By: REFERRED SELF Confirmed By: Flako Ryan
--- NOTE | 2024-08-12 18:12 | Billing Data ---
Date of Service August 12, 2024 Coding Level of Care Code 53252 IN/OBS DISCH 30 MIN/LESS
== END 2024-08-12 12:30 | disposition home or self-care (01) | DRG 282 ==
LOC: ED 01:44 → SUATTDRO 03:54 → 2N 03:54
DX: K21.9 Gastro-esophageal reflux disease without esophagitis; M10.9 Gout, unspecified; Z82.49 Family history of ischemic heart disease and other diseases of the circulatory system; I12.9 Hypertensive chronic kidney disease with stage 1 through stage 4 chronic kidney disease, or unspecified chronic kidney disease; E11.42 Type 2 diabetes mellitus with diabetic polyneuropathy; Z88.2 Allergy status to sulfonamides; Z97.4 Presence of external hearing-aid; Z79.899 Other long term (current) drug therapy; Z11.52 Encounter for screening for COVID-19; N18.30 Chronic kidney disease, stage 3 unspecified; I21.4 Non-ST elevation (NSTEMI) myocardial infarction; E11.22 Type 2 diabetes mellitus with diabetic chronic kidney disease; E87.6 Hypokalemia; Z66 Do not resuscitate; H90.3 Sensorineural hearing loss, bilateral; Z83.3 Family history of diabetes mellitus; Z88.8 Allergy status to other drugs, medicaments and biological substances; Z79.84 Long term (current) use of oral hypoglycemic drugs; E78.2 Mixed hyperlipidemia; Z85.3 Personal history of malignant neoplasm of breast